=== PATIENT | male | born 1945 | race Caucasian/White ===

== ENCOUNTER → 2017-11-23 10:00 | Outpatient (CLI) | payer MEDICARE, OTHER, SELFPAY ==
--- NOTE | 2017-11-23 17:38 | LEAS ---
Arterial Study - Arterial Study Arterial Study: Bilateral lower extremity noninvasive arterial exam at rest Patient with a history of right lower extremity below-knee amputation The right low thigh index is 1.1. The popliteal Doppler waveform is triphasic. Volume pulse recordings could not be obtained distal to the low thigh. The low thigh waveform normal. Left lower extremity PT and DP ankle-brachial index at rest is 1.18 and 1.13 respectively with a digital index of 0.72. The left PT and DP Doppler waveforms are triphasic. Volume pulse recordings demonstrate normal amplification the calf. The ankle and digital waveforms are adequately maintained. Impression Limited examination of the right lower extremity with intact right iliofemoral inflow. Left lower extremity ankle-brachial indices at rest are normal as are the Doppler waveforms. Digital indices mildly diminished. Findings would suggest mild distal small vessel disease. Critical ischemia is not identified. Oracio Davey M.D., F.A.C.S.
== END ==
PROVIDERS: Family Provider Internal Medicine Infectious Disease; PCP Internal Medicine Infectious Disease; Referring Provider Surgery; Visit Provider Surgery
DX: I73.9 Peripheral vascular disease, unspecified (principal)
CPT/HCPCS: 93923

== ENCOUNTER → 2017-11-29 10:52 | Outpatient (CLI) | payer MEDICARE, OTHER, SELFPAY ==
--- NOTE | 2017-11-29 10:53 | VDLE_ITS ---
Reason For Study: LEG SWELLING RIGHT LEFT CFV is compressible, spontaneous, phasic, GSV is normal. competent and demonstrates normal CFV is compressible, spontaneous, phasic, augmentation. competent, and demonstrates normal Procedure augmentation. Exam performed in department. FV is compressible, spontaneous, phasic, A preliminary report was called and/or faxed competent and demonstrates normal to Dr. Davey. augmentation. POP V is compressible, spontaneous, phasic, competent and demonstrates normal augmentation. T/P Trunk is compressible. PTV is compressible. LT PerV is compressible. Interpretation Summary There is no evidence of left lower extremity deep vein thrombosis. Left greater saphenous vein appears patent and compressible segmentally. Normal flow patterns right common femoral vein. Ordering Physician: Oracio Davey Referring Physician: Oracio Davey Performed By: Ivana Nelson RVT
== END ==
PROVIDERS: Family Provider Internal Medicine Infectious Disease; PCP Internal Medicine Infectious Disease; Referring Provider Surgery; Visit Provider Surgery
DX: M79.89 Other specified soft tissue disorders (principal)
CPT/HCPCS: 93971

== ENCOUNTER 2019-01-31 14:49 | Emergency (ER) | payer MEDICARE, OTHER, SELFPAY ==
[2019-01-31 14:52] VITALS: BP 155/94; PULSE 85; RESP 18; TEMP 36.2; O2SAT 97; BMI 28.2
--- NOTE | 2019-01-31 15:06 | CT_ITS ---
STUDY: CT ABDOMEN AND PELVIS WITH CONTRAST REASON FOR EXAM: Male, 73 years old. Right-sided abdominal pain history of Crohn''s appendectomy cholecystectomy history of ulcer RADIATION DOSAGE (If Supplied By Facility): CTDIvol = ( 14.79 ) mGy, DLP = ( 788.48 ) mGycm TECHNIQUE: Transaxial images were obtained from the dome of the diaphragm to the symphysis pubis without oral contrast. Was administered. Sagittal and coronal images were reconstructed. Individualized dose optimization techniques were used for this CT. COMPARISON: None. FINDINGS: There is minimal lower lobe atelectasis. Sternotomy wires are present midline. The liver is small and fatty infiltrated. The gallbladder is been removed. There is a cystic appearance of the remaining left hepatic lobe with pneumobilia. There is a surgical clip present. Part of the liver may have been resected. There are small cysts within the right hepatic lobe measuring 8.3, 7.2, 4.8 mm. There are multiple cysts demonstrated in the liver. There are surgical clips in the gallbladder fossa consistent with a prior cholecystectomy. Normal spleen. There is diffuse atrophy of the pancreas. Normal bilateral adrenal glands. There is mild atrophy of the right kidney there is renal cortical thinning. There is a left renal cyst measuring 5.5 x 6.2 cm. There are Hounsfield units in the range of simple fluid. There is an exophytic cyst measuring 1.3 cm with Hounsfield units ranging in the level of simple fluid. There is a minimal hiatal hernia. There is a mildly thickened appearance of the distal stomach. Normal small intestine. There is diverticulosis of the colon without visualized diverticulitis. There is non-visualization of the appendix. Aorta is tortuous partially calcified with calcification at the takeoff of the renal arteries. Infrarenal aorta measures approximately 2.8 x 2.8 cm. Normal inferior vena cava. Normal retroperitoneum. There is a inhomogeneous appearance of the prostate which appears to invade or position to the base of the bladder on the left side. There is wall thickening of the bladder. There is a distended appearance of the prostatic urethra and visualized punctate calcifications within the prostate. Normal abdominal wall. There is advanced multilevel degenerative change of the thoracolumbar spine with a pars defect L5-S1 with spondylolysis. There is multilevel disc space narrowing spondylosis, neural foraminal narrowing. There is a sclerotic focus at the superior endplate of L1 which may represent degenerative change versus a small osteoblastic type lesion. There is posttraumatic or procedural irregularity of the left cord to the right iliac crest. CT/Abdomen/Pelvis W IV Cont ONLY IMPRESSION: Masslike and enlargement of the prostate pushing into the base the bladder causing distention of the prostatic urethra and likely causing chronic partial outlet obstruction of the bladder. There is wall thickening probable cystitis. Diverticulosis no evidence of diverticulitis. Findings are suggestive of partial resection of the liver with residual benign-appearing cyst in pneumobilia. Status post cholecystectomy. Mild wall thickening of the distal stomach which may represent gastritis. Small hiatal hernia Bilateral renal atrophy right greater than left. Benign-appearing left renal cyst. Degenerative change thoracolumbar spine. 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 Superior endplate at L1 there is a focal sclerotic density that may represent degenerative change versus a small osteoblastic lesion. Electronically Signed: Dara Patrick MD at 16:48 EST Tel , Service support ,
--- NOTE | 2019-01-31 15:08 | ED.DCSUM_ITS ---
- ER Visit Summary Date of Service: 01/31/19 Chief Complaint: Abdominal pain History of Present Illness: The patient is a 73 M who has abdominal pain. He has had this pain for 3 days. He describes pains on the right side of his abdomen. They do not radiate. Nothing makes it better or worse. He denies n ausea, vomiting, diarrhea, constipation, dysuria or hematuria. He had his last bowel movement yesterday. He is denies a fever. He took tramadol at home without any relief. He has a history of Caroli disease. He has had previous appendectomy and cholecystectomy. Physical Examination: Vital signs reviewed. HEENT exam unremarkable. Heart is regular rate and rhythm without murmurs. Lungs are clear to auscultation. Abdomen is soft with right-sided abdominal tenderness. There is no guarding or rebound tenderness. He has hyperactive bowel sounds. Extremities reveal no edema. Skin exam normal. Neurologic exam normal. Test Results: Laboratory studies normal. Urinalysis normal. CAT scan reveals questionable gastritis and prosthetic enlargement. There is renal atrophy. Nothing acute Emergency Department Course and Treatment: Patient received morphine and Zofran which did not help and he got Bentyl and felt better. I see no acute causes for the patient's pain. He will be discharged with Bentyl. He will follow-up with his PCP. Treatment Plan: [] Disposition: Discharge Impression: Abdominal pain This note was generated with [employer] dictation software. It may contain incorrect words, spelling, and punctuation that were not noted in review of the chart prior to signing ED Disposition - Plan for ED Patient: Referrals: Lance Arcos MD [NON-STAFF] -
[2019-01-31] MEDS: Morphine 4 MG/ML Syringe IV (15:30)
[2019-01-31] MEDS: Ondansetron 4 MG/2 ML Vial IV (15:30)
[2019-01-31 15:59] LABS: Absolute Lymphocyte Count 0.82 X10^3/uL (0.83-4.51); Absolute Neutrophil Count 3.2 X10^3/uL (2.0-7.7); Basophil# 0.02 X10^3/uL; Basophil% 0.4 % (0-1); Eosinophil# 0.11 X10^3/uL; Eosinophils% 2.4 % (0-5); Hemoglobin 14.8 g/dL (13.0-16.5); Lymphocyte # 0.82 X10^3/ul (4.0); Lymphocyte % 17.9 % (19-41); Mean Corp Hgb Conc 32.9 g/dL (32-36); Mean Corpuscular Volume 82.1 fL (80-94); Mean Platelet Vol. 10.1 fl (6.2-12.0); Monocyte# 0.42 X10^3/uL; Monocyte% 9.2 % (0-10); NRBC Flagged by Analyzer 0 % (0-5); Neutrophil # 3.17 X10^3/uL (2.7-7.7); Neutrophil % 69.2 % (47-70); Platelet Count 176 K/mm3 (150-450); RBC Distribution Width CV 13.3 % (11.6-14.6); RBC Distribution Width SD 39.3 fl (35.1-43.9); Red Blood Count 5.48 M/mm3 (4.6-6.2); White Blood Count 4.6 K/mm3 (4.4-11.0)
[2019-01-31 16:17] LABS: AST(SGOT) 19 U/L (15-37); Alanine Aminotransfer ALT/SGPT 24 U/L (16-61); Albumin, Serum 3.7 g/dL (3.2-5.0); Alkaline Phosphatase 85 U/L (45-117); Anion Gap 5 (5-15); BUN 12 mg/dL (7-18); BUN/Creat Ratio 11.4 RATIO (10-20); Bilirubin, Direct 0.15 mg/dL (0.00-0.30); Calcium,Total 8.8 mg/dL (8.5-10.1); Chloride 107 mmol/L (98-107); Creatinine, Serum 1.05 mg/dL (0.70-1.30); EST Glomerular Filtration Rate 73 mL/min (>60); Est Glom Filt Rate - Afr Amer 89 mL/min (>60); Estimated Creatinine Clearance 58.81 ml/min; Globulin 3.4 g/dL (2.2-4.2); Glucose 119 mg/dL (74-106); Lipase 100 U/L (73-393); Potassium 3.5 mmol/L (3.5-5.1); Protein, Total 7.1 g/dL (6.4-8.2); Sodium Level 142 mmol/L (136-145)
[2019-01-31 17:26] VITALS: BP 164/94; PULSE 62; RESP 18; O2SAT 95
[2019-01-31 17:28] LABS: Bacteria 0 SEEN /hpf (None Seen); Mucous, Urine 0 SEEN /hpf (<or=2+); Red Blood Cells-Urine 0 SEEN /hpf (0-5); Squamous Epithelial Cells - UA 0 SEEN /hpf (0-5)
[2019-01-31] MEDS: Dicyclomine 20 MG/2 ML Vial IM (17:48)
[2019-01-31 17:49] LABS: Color, Urine Yellow (Yellow); Glucose, Dipstick Normal (Normal); Ketone-Dipstick Negative (Negative); Leukocyte Esterase-Dipstick Negative /ul (Negative); Nitrite-Dipstick Negative (Negative); Occult Blood-Urine 10 /ul (Negative); Protein-Dipstick Negative (Negative); Urine Bilirubin Dipstick Negative (Negative); Urine Clarity Clear (Clear); Urine Urobilinogen Normal (Normal)
[2019-01-31 18:14] LABS: White Blood Cells 0-5 SEEN /hpf (0-5)
--- NOTE | 2019-01-31 18:58 | ED.DEP ---
ED Disposition - Plan for ED Patient: Disposition: Home or Assisted Living Instructions: ABDOMINAL PAIN, Unkown Cause, (Male) Prescriptions: Dicyclomine HCl [Bentyl] 20 mg PO TIDAC #20 cap Prescription Printed Referrals: Lance Arcos MD [NON-STAFF] -
[2019-01-31 19:06] VITALS: BP 164/94; PULSE 62; RESP 18; O2SAT 95
[2019-01-31 19:09] VITALS: BP 164/94; PULSE 62; RESP 18; O2SAT 95
== END 2019-01-31 19:10 | disposition home or self-care (01) ==
PROVIDERS: Emergency Provider Emergency Medicine; Family Provider Internal Medicine; PCP Internal Medicine
DX: R10.9 Unspecified abdominal pain (principal); N40.0 Benign prostatic hyperplasia without lower urinary tract symptoms; N26.1 Atrophy of kidney (terminal); Z90.49 Acquired absence of other specified parts of digestive tract; I10 Essential (primary) hypertension; E78.00 Pure hypercholesterolemia, unspecified; I48.91 Unspecified atrial fibrillation
CPT/HCPCS: 74177; 80048; 80076; 81001; 83690; 85025; 96372; 96374; 96375; 99283; Q9967; A4216; J2405

== ENCOUNTER → 2019-12-16 | Outpatient (CLI) | payer MEDICARE, OTHER, SELFPAY ==
--- NOTE | 2019-12-16 08:00 | RAD_ITS ---
PROCEDURE: Sniff test. DATE OF EXAMINATION: 12/16/2019. INDICATION: Male, 73 years old. Dyspnea. FLUOROSCOPY TIME (if supplied): (29 seconds) minutes/seconds A sniff test was performed under direct fluoroscopic visualization. Normal diaphragmatic excursion. RAD/Fluoroscopy 1 Hr or Less IMPRESSION: Normal diaphragmatic excursion. Electronically Signed: Jourdan Sandy, at 14:43 EDT , Service support ,
== END | disposition home or self-care (01) ==
LOC: RAD 07:54
PROVIDERS: PCP Internal Medicine; Referring Provider Internal Medicine Pulmonary Disease; Visit Provider Internal Medicine Pulmonary Disease
DX: R06.00 Dyspnea, unspecified (principal)
CPT/HCPCS: 76000

== ENCOUNTER 2020-05-10 13:29 | Emergency (ER) | payer MEDICARE, OTHER, SELFPAY ==
[2020-05-10 13:31] VITALS: BP 131/71; PULSE 51; RESP 18; TEMP 36.7; O2SAT 95; BMI 28.8
--- NOTE | 2020-05-10 14:18 | EKG12_ITS ---
Test Reason : SOB Blood Pressure : / mmHG Vent. Rate : 040 BPM Atrial Rate : 041 BPM P-R Int : 000 ms QRS Dur : 096 ms QT Int : 464 ms P-R-T Axes : 000 016 069 degrees QTc Int : 378 ms Atrial fibrillation with slow ventricular response ST & T wave abnormality, consider anterolateral ischemia Abnormal ECG Confirmed by CAREY ANGELO, BAN ([id number]), art editor WADE CAMPOS ([id number]) on 05/12/2020 10:08:03 AM Referred By: DILCIA Confirmed By:BAN PATINO MD
--- NOTE | 2020-05-10 14:21 | ED.VIS.GEN ---
History of Present Illness Chief Complaint: Shortness of Breath Informant: Patient, Family Narrative: Patient is a 74-year-old male with a past medical history of CAD, CHF, atrial fibrillation who presents to the emergency department for multiple complaints including shortness of breath, diffuse swelling and diarrhea. Initial symptoms started this previous Sunday. He was having diarrhea up until that point and this did resolve. It did start again today but only had one episode. He states 3 days ago he had a darker stool but this also since resolved. No associate abdominal pain. He is on Eliquis for anticoagulation. He denies any chest pain associated with this. No cough. No fevers. He denies any chills. He has not had any nausea vomiting with this. He has been in contact with his PCP who doubled his Lasix on Sunday. Patient is not sure if he has been urinating more frequently due to this. Past Medical History - Allergies and Home Meds Allergies/Adverse Reactions: Allergies gabapentin Allergy (Unknown, Verified 05/10/20 13:31) Unknown meperidine [From Demerol] Adverse Reaction (Intermediate, Verified 05/10/20 13:31) mental status change Suasfcp-Sea-Aha Reductase Inhibitor Adverse Reaction (Intermediate, Verified 05/10/20 13:31) Unknown Penicillins Adverse Reaction (Mild, Verified 05/10/20 13:31) passed out zolpidem [From Ambien] Adverse Reaction (Mild, Verified 05/10/20 13:31) mental status change Primary Care Physician: Angelica Grady MD [Primary Care Provider] - 1 Day Prior records reviewed: Yes Past Medical History: - - Per HPI Surgical History: appendectomy Smoking Status: Former smoker Review of Systems All systems negative except as indicated General: Reports: - - Generalized weakness. Denies: Chills, Fever, Sweats Eyes: Denies: Visual changes - bilaterally, Diplopia ENT: Denies: Rhinorrhea, Sore throat Cardiovascular: Denies: Chest pain, Palpitations Respiratory: Reports: Dyspnea. Denies: Cough, Sputum Gastrointestinal: Reports: Diarrhea. Denies: Abdominal pain, Nausea, Vomiting, Hematochezia Genitourinary: Denies: Dysuria, Hematuria, Frequency Musculoskeletal: Denies: Back pain, Extremity Pain Skin: Reports: Rash - Dry skin on face and upper chest.. Denies: Wounds Neurological: Denies: Headache, Weakness, Numbness Physical Exam Vital Signs/Narrative: Vital Signs Temp Pulse Resp BP Pulse Ox 05/10/20 13:31 98.0 F 51 L 18 131/71 H 95 Inital Vital Signs reviewed: Yes General: Well nourished, Well developed, No Acute Distress Head: Normocephalic, Atraumatic Eyes: Perrl, EOMI ENT: Moist mucous membranes, No rhinorrhea Neck: Supple, Nontender Cardiovascular: Regular rate, Regular rhythm, No murmurs, - - Diffuse edema. Respiratory: No distress, CTA bilaterally, Chest nontender Abdomen: Soft, Nontender, Nondistended, Normal bowel sounds Back: Nontender, Normal Inspection Extremities: Nontender, - - Right AKA. 2+ pitting edema of left lower extremity.. Negative for: Calf Tenderness Skin: Normal color, Rash - Dermatitis on the face and upper chest/neck. Mostly in the creases. It is erythematous with some flaking skin. Neurological: Alert, Cranial nerves II-XII grossly intact, Normal Strength, Normal Sensation Psychological: Normal affect, Normal Mood Diagnostic/Tx/Re-eval Chest X-Ray - ED: 1 View - Single view portable chest x-ray interpreted by myself. No evidence of consolidation. No pleural effusions. Previous sternotomy wires present. No acute pathology noted. Agree with radiologist interpretation. - EKG Initial EKG Interpretation: - - Rate of 40 bpm and an irregularly irregular rhythm. No significant ST elevations or depressions. Otherwise normal intervals/axis. - Medical Decision Making Patient presents to the emerge department for diffuse edema, shortness of breath. He had one episode of diarrhea today. No other infectious symptoms. Upon arrival to the emergency department he is in no acute distress. Vital signs within normal limits. Will check basic lab work, EKG and chest x-ray. Patient's lab work shows him to be very mildly anemic. He has a mildly low white blood cell count as well. His BNP is slightly elevated. Troponin within normal limits. He has been stable throughout ED stay. Patient was able to get up and ambulate around the emergency department without any acute issues. He saturated at 90% without being symptomatic. He has been in atrial fibrillation. He has been bradycardic with this. I did contact his PCP who just saw him in the office for the same complaints 3 days ago. He was supposed to get lab work as an outpatient but the brought him to the emergency department instead. I did inform them of the bradycardia which at times gets into the high 30s. He did recommend that he just do the 12.5 mg of metoprolol once daily instead of twice daily. The patient and his for made aware of this and are agreeable with this plan. They are to monitor his vitals at home and report back to his PCPs office this week. Return precautions were reviewed with him including any worsening shortness of breath or developing any chest pain. I do not feel patient is having ACS, PE, aortic catastrophe at this time. The PCP is aware of the rash on his face which he believes this dermatitis. I do not feel that this is infectious. He is stable for discharge. ED Disposition - Plan for ED Patient: Disposition: Home or Assisted Living Diagnosis: Edema, Dyspnea Instructions: ED Dyspnea, ED Peripheral Edema, Bilateral Referrals: Angelica Grady MD [Primary Care Provider] - 1 Day
[2020-05-10 14:43] VITALS: BP 123/72; PULSE 47; RESP 14; TEMP 36.7; O2SAT 92
--- NOTE | 2020-05-10 14:55 | RAD_ITS ---
STUDY: X-RAY CHEST REASON FOR EXAM: Male, 74 years old. SOB TECHNIQUE: Single AP portable view of the chest. COMPARISON: None. FINDINGS: EKG electrodes are seen. Mild increased markings at the left lung base suggestive of linear atelectasis and/or scarring. There is no demonstrated pleural abnormality. Sternal cerclage wires and vascular clips are present from a prior sternotomy and coronary artery bypass graft procedure (CABG). Normal mediastinum and eber. Normal visualized pulmonary arteries. There is atherosclerotic tortuosity of the aortic arch and descending thoracic aorta. Normal visualized thoracic spine. Normal visualized ribs, clavicles, and shoulders. There is no demonstrated abnormality of the visualized soft tissue structures of the upper abdomen. RAD/Chest 1 View (Portable) IMPRESSION: Status post CABG. Mild degree of increased linear markings at the left lung base suggestive of linear atelectasis and/or scarring. Electronically Signed: Jourdan Sandy MD at 15:19 EDT , Service support ,
[2020-05-10 15:07] LABS: Absolute Lymphocyte Count 0.77 X10^3/uL (0.83-4.51); Absolute Neutrophil Count 2.7 X10^3/uL (2.0-7.7); Basophil# 0.02 X10^3/uL; Basophil% 0.5 % (0-1); Eosinophil# 0.17 X10^3/uL; Eosinophils% 4.2 % (0-5); Hematocrit 40.7 % (40-54); Hemoglobin 12.2 g/dL (13.0-16.5); Lymphocyte # 0.77 X10^3/ul (4.0); Lymphocyte % 18.8 % (19-41); Mean Corpuscular Hgb 25.6 pg (27.0-32.0); Mean Corpuscular Volume 85.5 fL (80-94); Mean Platelet Vol. 11.5 fl (6.2-12.0); Monocyte% 9.8 % (0-10); NRBC Flagged by Analyzer 0 % (0-5); Neutrophil # 2.71 X10^3/uL (2.7-7.7); Neutrophil % 66.2 % (47-70); Platelet Count 169 K/mm3 (150-450); RBC Distribution Width CV 13.3 % (11.6-14.6); RBC Distribution Width SD 41.7 fl (35.1-43.9); Red Blood Count 4.76 M/mm3 (4.6-6.2); White Blood Count 4.1 K/mm3 (4.4-11.0)
[2020-05-10 15:33] LABS: ALB/GLOB Ratio 1.2 RATIO (0.9-2.4); AST(SGOT) 24 U/L (15-37); Alanine Aminotransfer ALT/SGPT 19 U/L (16-61); Albumin, Serum 3.7 g/dL (3.2-5.0); Alkaline Phosphatase 49 U/L (45-117); Anion Gap 2 (5-15); BUN 16 mg/dL (7-18); Calcium,Total 8.6 mg/dL (8.5-10.1); Chloride 109 mmol/L (98-107); Creatinine, Serum 1.14 mg/dL (0.70-1.30); EST Glomerular Filtration Rate 66 mL/min (>60); Est Glom Filt Rate - Afr Amer 80 mL/min (>60); Estimated Creatinine Clearance 53.33 ml/min; Glucose 81 mg/dL (74-106); Magnesium 2.1 mg/dL (1.6-2.6); Potassium 3.7 mmol/L (3.5-5.1); Protein, Total 6.7 g/dL (6.4-8.2); Sodium Level 143 mmol/L (136-145); Thyroid Stim Hormone (TSH) 2.34 uIU/mL (0.358-3.74)
[2020-05-10 16:00] VITALS: BP 135/96; PULSE 42; RESP 12; TEMP 36.4; O2SAT 98
[2020-05-10 16:07] VITALS: O2SAT 94
[2020-05-10 16:07] LABS: Bacteria 0 SEEN /hpf (None Seen); Mucous, Urine 0 SEEN /hpf (<or=2+); Red Blood Cells-Urine 0 SEEN /hpf (0-5); Squamous Epithelial Cells - UA 0 SEEN /hpf (0-5); White Blood Cells 0 SEEN /hpf (0-5)
[2020-05-10 16:16] LABS: Color, Urine Yellow (Yellow); Glucose, Dipstick Normal (Normal); Ketone-Dipstick Negative (Negative); Leukocyte Esterase-Dipstick 25 /ul (Negative); Nitrite-Dipstick Negative (Negative); Occult Blood-Urine Negative /ul (Negative); Protein-Dipstick Negative (Negative); Specific Gravity, Urine 1.015 (1.002-1.030); Urine Bilirubin Dipstick Negative (Negative); Urine Clarity Clear (Clear); Urine Urobilinogen Normal (Normal)
[2020-05-10 17:43] VITALS: BP 131/83; PULSE 46; RESP 18; O2SAT 94
== END 2020-05-10 17:57 | disposition home or self-care (01) ==
PROVIDERS: Emergency Provider Emergency Medicine; PCP Internal Medicine
DX: R60.9 Edema, unspecified (principal); R06.00 Dyspnea, unspecified; R19.7 Diarrhea, unspecified; I25.10 Atherosclerotic heart disease of native coronary artery without angina pectoris; I48.91 Unspecified atrial fibrillation; Z79.01 Long term (current) use of anticoagulants; Z87.891 Personal history of nicotine dependence; Z88.0 Allergy status to penicillin; Z88.5 Allergy status to narcotic agent; Z88.8 Allergy status to other drugs, medicaments and biological substances; Z95.1 Presence of aortocoronary bypass graft
CPT/HCPCS: 71045; 80053; 81001; 83735; 83880; 84443; 84484; 85025; 87426; 93005; 99284; A4216

== ENCOUNTER → 2021-07-26 | Outpatient (CLI) | payer MEDICARE, OTHER, SELFPAY | END | disposition home or self-care (01) | PROVIDERS: PCP Internal Medicine | DX: B99.9 Unspecified infectious disease (principal) | CPT/HCPCS: 87086 ==

== ENCOUNTER → 2021-08-01 | Outpatient (CLI) | payer MEDICARE, OTHER, SELFPAY ==
--- NOTE | 2021-08-01 12:25 | MRI_ITS ---
STUDY: MRI ABDOMEN WITH AND WITHOUT CONTRAST REASON FOR EXAM: Male, 75 years old. RENAL CYST NAUSEA,VOMITING, ABD ABCESS/INFECTION TECHNIQUE: Standardized fat and water weighted pulse sequences were obtained in all 3 orthogonal planes post contrast administration. dotarem 20ml iv was administered for the contrast portion of the examination. COMPARISON: CT 01/31/2019 FINDINGS: The visualized lung bases are unremarkable. The visualized portions of the heart are within normal limits. Multiple small hepatic cysts. The entire liver is not included on the study. There are surgical clips in the gallbladder fossa consistent with a prior cholecystectomy. Normal spleen. The entire spleen is not included on the study. Normal pancreas. Normal bilateral adrenal glands. Multiple bilateral renal cysts. Most of these are small in size. No change in the 6 cm round exophytic simple cyst of the midsection of left kidney without septation, nodularity, or contrast enhancement (Bosniak type I). Normal visualized stomach. Normal small intestine. Normal colon. The appendix is visualized and appears normal. Normal abdominal aorta. Normal inferior vena cava. Normal retroperitoneum. Normal abdominal wall. Normal osseous structures. MRI/MRI Abd WITH and W/O Contrast IMPRESSION: Multiple bilateral renal cysts including a 6 cm cyst in the midsection left kidney. Electronically Signed: Satinder Morin MD at 9:50 EDT ,
[2021-08-01 12:50] LABS: CREATININE FINGERSTICK < 0.9 mg/dL (0.70-1.30); EGFR FINGERSTICK > 60.0000 mL/min (>60)
[2021-08-01 13:03] VITALS: BP 124/82; PULSE 136; RESP 16; O2SAT 94
[2021-08-01 13:17] VITALS: BP 109/73; PULSE 85; O2SAT 97
[2021-08-01 13:28] VITALS: BP 108/81; PULSE 85; O2SAT 92
== END | disposition home or self-care (01) ==
PROVIDERS: PCP Internal Medicine; Referring Provider Internal Medicine; Visit Provider Internal Medicine
DX: N28.1 Cyst of kidney, acquired (principal); R10.9 Unspecified abdominal pain; R11.0 Nausea
CPT/HCPCS: 74183; A9575

== ENCOUNTER → 2021-08-18 | Outpatient (CLI) | payer MEDICARE, OTHER, SELFPAY ==
[2021-08-18 08:32] LABS: Absolute Lymphocyte Count 1.05 X10^3/uL (0.83-4.51); Basophil# 0.04 X10^3/uL; Basophil% 0.7 % (0-1); Eosinophil# 0.19 X10^3/uL; Eosinophils% 3.2 % (0-5); Hematocrit 43.3 % (40-54); Hemoglobin 13.9 g/dL (13.0-16.5); Lymphocyte # 1.05 X10^3/ul (0.83-4.51); Lymphocyte % 17.9 % (19-41); Mean Corp Hgb Conc 32.1 g/dL (32-36); Mean Corpuscular Hgb 28.1 pg (27.0-32.0); Mean Corpuscular Volume 87.5 fL (80-94); Mean Platelet Vol. 10.2 fl (6.2-12.0); Monocyte# 0.54 X10^3/uL; Monocyte% 9.2 % (0-10); NRBC Flagged by Analyzer 0 % (0-5); Neutrophil # 4.02 X10^3/uL (2.7-7.7); Neutrophil % 68.5 % (47-70); Platelet Count 209 K/mm3 (150-450); RBC Distribution Width CV 12.4 % (11.6-14.6); RBC Distribution Width SD 39.5 fl (35.1-43.9); Red Blood Count 4.95 M/mm3 (4.6-6.2); White Blood Count 5.9 K/mm3 (4.4-11.0)
[2021-08-18 08:47] LABS: Color, Urine Straw (Yellow); Glucose, Dipstick Normal (Normal); Ketone-Dipstick Negative (Negative); Leukocyte Esterase-Dipstick Negative /ul (Negative); Nitrite-Dipstick Negative (Negative); Occult Blood-Urine Negative /ul (Negative); Protein-Dipstick Negative (Negative); Urine Bilirubin Dipstick Negative (Negative); Urine Clarity Cloudy (Clear); Urine Urobilinogen Normal (Normal)
[2021-08-18 08:59] LABS: ALB/GLOB Ratio 1.3 RATIO (0.9-2.4); AST(SGOT) 15 U/L (15-37); Alanine Aminotransfer ALT/SGPT 16 U/L (16-61); Albumin, Serum 3.8 g/dL (3.2-5.0); Alkaline Phosphatase 38 U/L (45-117); Anion Gap 1 (5-15); BUN 18 mg/dL (7-18); BUN/Creat Ratio 14.8 RATIO (10-20); Calcium,Total 8.7 mg/dL (8.5-10.1); Chloride 105 mmol/L (98-107); Cholesterol 121 mg/dL (200); Creatinine, Serum 1.22 mg/dL (0.70-1.30); EST Glomerular Filtration Rate 61 mL/min (>60); Est Glom Filt Rate - Afr Amer 74 mL/min (>60); Glucose 88 mg/dL (74-106); High Density Lipoprotein 33 mg/dL; Protein, Total 6.8 g/dL (6.4-8.2); Sodium Level 140 mmol/L (136-145); Triglycerides 128 mg/dL; Very Low Density Lipoprotein 26 mg/dL (5-40)
== END | disposition home or self-care (01) ==
PROVIDERS: PCP Internal Medicine
DX: N39.0 Urinary tract infection, site not specified (principal); Z95.0 Presence of cardiac pacemaker; B99.9 Unspecified infectious disease
CPT/HCPCS: 36415; 80053; 80061; 81002; 85025; 87086

== ENCOUNTER 2021-10-25 12:54 | Emergency (ER) | payer MEDICARE, OTHER, SELFPAY ==
[2021-10-25 12:56] VITALS: BP 140/95; PULSE 86; RESP 18; TEMP 36.8; O2SAT 92; BMI 27.2
[2021-10-25 13:26] VITALS: TEMP 37.1
--- NOTE | 2021-10-25 14:08 | EKG12_ITS ---
Test Reason : fever Blood Pressure : / mmHG Vent. Rate : 061 BPM Atrial Rate : 060 BPM P-R Int : 000 ms QRS Dur : 146 ms QT Int : 500 ms P-R-T Axes : 000 -29 113 degrees QTc Int : 503 ms Ventricular-paced rhythm with occasional Premature ventricular complexes Abnormal ECG Confirmed by ISA ANGELO, DEREK ([id number]), commissioning editor WADE CAMPOS ([id number]) on 10/28/2021 2:00:59 PM Referred By: Catalina Confirmed By:MATTHEW MOSS MD
--- NOTE | 2021-10-25 14:09 | EX.ED.DYSGE1 ---
HPI History of Present Illness Chief Complaint: Fever Informant: patient Onset/Context/Timing Onset: Days Context: Gradual Onset Current Severity: Mild Maximum Severity: Mild Narrative Narrative: Patient presents feeling ill for the past 3 days. He reports temperature up to 99.7. He had some mild right upper quadrant pain which he states he gets intermittently. He was post to see GI in [place] yesterday but did not feel well enough to go. Today he started with nausea and vomiting and this prompted his visit to the emergency room. [facility] Medical History Anxiety and depression Atrial fibrillation Chronic back pain Congestive heart failure GERD (gastroesophageal reflux disease) Heart disease Hemorrhoid HTN (hypertension) Osteoarthritis Pancreatitis Sleep apnea Venous (peripheral) insufficiency Home Medications amlodipine 10 mg tablet 10 mg PO DAILY 11/29/17 [History Last Taken Unknown] apixaban 5 mg tablet (Eliquis) 5 mg PO BID 11/29/17 [History Last Taken Unknown] aspirin 81 mg tablet,delayed release (Adult Aspirin Regimen) 81 mg PO DAILY 11/29/17 [History Last Taken Unknown] cholecalciferol (vitamin D3) 50 mcg (2,000 unit) capsule 2,000 unit PO DAILY 11/29/17 [History Last Taken Unknown] clonazepam 1 mg tablet 1 mg PO BID 11/29/17 [History Last Taken Unknown] colesevelam 625 mg tablet (WelChol) 1,875 mg PO TID 11/29/17 [History Last Taken Unknown] furosemide 40 mg tablet 40 mg PO DAILY 11/29/17 [History Last Taken Unknown] lansoprazole 30 mg capsule,delayed release 30 mg PO BID 11/29/17 [History Last Taken Unknown] lisinopril 20 mg tablet 20 mg PO BID 11/29/17 [History Last Taken Unknown] magnesium oxide 400 mg (241.3 mg magnesium) tablet 500 mg PO BID 11/29/17 [History Last Taken Unknown] metoprolol succinate 25 mg tablet,extended release 24 hr 25 mg PO DAILY 11/29/17 [History Last Taken Unknown] nitroglycerin 0.4 mg sublingual tablet (Nitrostat) 0.4 mg sublingual Q5-15M PRN 11/29/17 [History Last Taken Unknown] potassium chloride 10 mEq tablet,extended release 20 meq PO DAILY 11/29/17 [History Last Taken Unknown] pregabalin 200 mg capsule (Lyrica) 150 mg PO BID 11/29/17 [History Last Taken Unknown] tramadol 50 mg tablet 50 mg PO Q6H 11/29/17 [History Last Taken Unknown] trazodone 50 mg tablet 50 mg PO BID 11/29/17 [History Last Taken Unknown] dicyclomine 10 mg capsule 20 mg PO TIDAC #20 caps 01/31/19 [Rx Last Taken Unknown] donepezil 10 mg tablet 10 mg PO DAILY 10/25/21 [History Last Taken Unknown] famotidine 20 mg tablet 20 mg PO BID 10/25/21 [History Last Taken Unknown] hydromorphone 2 mg tablet mg 10/25/21 [History Last Taken Unknown] promethazine 25 mg tablet 25 mg PO TID PRN nausea and vomiting #14 tabs 10/25/21 [Rx Last Taken Unknown] Allergy/AdvReac Type Severity Reaction Status Date / Time gabapentin Allergy Unknown Unknown Verified 10/25/21 12:55 meperidine [From Demerol] AdvReac Intermediate mental Verified 10/25/21 12:55 status change [id number]-JSE-WvH Reductase AdvReac Intermediate Unknown Verified 10/25/21 12:55 Inhibitor [Qcnrnvq-Vrx-Ybv Reductase Inhibitor] Penicillins AdvReac Mild passed out Verified 10/25/21 12:55 zolpidem [From Ambien] AdvReac Mild mental Verified 10/25/21 12:55 status change topiramate AdvReac Other Verified 10/25/21 12:55 Family History Sister Diabetes Asthma Thyroid disorder Mother CVA (cerebral vascular accident) Brother CVA (cerebral vascular accident) Hypertension Heart disease Surgical History History of appendectomy History of back surgery History of cataract surgery History of cholecystectomy History of elbow surgery History of ERCP History of heart bypass surgery History of hernia repair History of hip replacement, total History of prostatectomy History of right below knee amputation Social History Smoking Status: Former smoker ROS ROS ED Constitutional Constitutional ED: Denies chills or fever(s) Eyes Eyes: Denies change in vision or discharge from eye(s) ENT ENT ED: Denies discharge from eye(s), rhinorrhea or sore throat Cardiovascular Cardiovascular: Denies chest pain or palpitations Respiratory/Chest Respiratory/Chest: Denies cough or dyspnea Gastrointestinal Gastrointestinal: Denies abdominal pain, diarrhea, nausea or vomiting Genitourinary Genitourinary ED: Denies difficulty urinating or dysuria Musculoskeletal Musculoskeletal: Denies back pain or extremity pain Integumentary Denies Abrasions or rash Neurologic Neurologic: Denies headache(s) or weakness Psychiatric Psychiatric: Denies anxiety or depression Allergic/Immunologic Allergic/Immunologic ED: Denies lip swelling or urticaria EXAM Physical Exam Const Vital Signs: 10/25/21 12:56 10/25/21 13:26 10/25/21 13:27 Temperature 98.3 F 98.7 F Temperature Source Temporal Oral Pulse Rate 86 Respiratory Rate 18 Respiratory Effort Normal Non-Labored Respiratory Pattern Normal Blood Pressure 140/95 H Blood Pressure Mean 110 Pulse Ox 92 Oxygen Delivery Method Room Air 10/25/21 15:40 10/25/21 17:07 Temperature Temperature Source Pulse Rate 63 64 Respiratory Rate 13 11 L Respiratory Effort Respiratory Pattern Blood Pressure 117/49 L 144/82 H Blood Pressure Mean 71 102 Pulse Ox 95 Oxygen Delivery Method Room Air Positive well nourished and well developed General Appearance ED: well developed HEENT Reports moist mucous membranes Eyes EOMs intact bilaterally Neck no lymphadenopathy Chest Wall inspection of chest normal and palpation of chest normal Resp normal respiratory effort and clear to auscultation bilaterally Cardio regular rate and regular rhythm GI GI Narrative: Abdomen soft with right upper quadrant tenderness to palpation. No guarding or rebound. Hypoactive bowel sounds are present. Neuro oriented x3 and CN's II-XII intact bilaterally Skin no rashes or lesions noted MDM MDM MDM Narrative Medical decision making narrative: Patient given IV fluids and Phenergan for nausea. EKG obtained. Chest x-ray, lab work, urinalysis, right upper quadrant ultrasound ordered. Swabs for COVID and influenza obtained. Lab Data Attestation: I reviewed the patient's lab results. Labs: Laboratory Results - last 24 hr 10/25/21 10/25/21 10/25/21 14:17 14:17 15:51 WBC 7.5 RBC 5.46 Hgb 15.3 Hct 45.6 MCV 83.5 MCH 28.0 MCHC 33.6 RDW Std Deviation 38.0 RDW Coeff of Esthela 12.7 Plt Count 239 MPV 9.9 Immature Gran % (Auto) 0.500 Neut % (Auto) 81.0 H Lymph % (Auto) 11.9 L [place] % (Auto) 6.2 Eos % (Auto) 0.1 Baso % (Auto) 0.3 Absolute Neuts (auto) 6.0 Absolute Lymphs (auto) 0.89 Nucleated RBC % 0 Sodium 141 Potassium 3.4 L Chloride 105 Carbon Dioxide 31.0 Anion Gap 5 BUN 21 H Creatinine 1.30 Estim Creat Clear Calc 46.04 Est GFR (MDRD) Af Amer 69 Est GFR (MDRD) Non-Af 57 L BUN/Creatinine Ratio 16.2 Glucose 130 H Calcium 9.4 Total Bilirubin 0.50 Direct Bilirubin 0.18 AST 23 ALT 20 Alkaline Phosphatase 42 L Total Protein 7.4 Albumin 4.0 Globulin 3.4 Lipase 150 Urine Color Yellow Urine Clarity Clear Urine pH 6.0 Ur Specific [place] 1.025 Urine Protein 30 H Urine Glucose (UA) Normal Urine Ketones 5 H Urine Occult Blood 10 H Urine Nitrite Negative Urine Bilirubin Negative Urine Urobilinogen Normal Ur Leukocyte Esterase Negative Urine RBC 0-5 SEEN Urine WBC 0-5 SEEN Ur Squamous Epith Cells 0-5 SEEN Urine Bacteria 2+ Hyaline Casts 5-10 SEEN Urine Mucus 3+ Radiography Chest X-Ray - ED: 1 View, Read by ED Physician and Chronic Changes Diagnostic Testing: Clinical Impression(s) from Imaging Studies Chest X-Ray 10/25/21 14:26 IMPRESSION: Stable mild increase in markings at the left lung base suggestive of scarring. Electronically Signed: Jourdan Sandy MD at 14:41 EDT , Abdomen Ultrasound 10/25/21 15:12 IMPRESSION: Heterogeneous liver can suggest hepatocellular disease. Note: Renal size measurements and size measurements of other organs etc may vary depending on modality and machine operator picker dependent variations in measurements. (i.e. Measuring a kidney on an US does not correlate with an exact same measurement on a CT.) Electronically Signed: Osito Barrios MD at 16:58 EDT , EKG Initial EKG: Attestation: I personally reviewed and interpreted this EKG as follows: Comments: Paced at 61. No significant ischemia. QTC is 503. Treatment and Re-Evaluation Narrative: CBC reveals normal white count with slight left shift of 81% neutrophils. Chemistry studies reveal potassium of 3.4. BUN is 21, slightly elevated from prior. Creatinine is 1.3, consistent with his prior values. LFTs and lipase normal. Urinalysis reveals 2+ bacteria with 0-5 white cells. 5-10 hyaline casts are noted with 0-5 white cells and no nitrites. COVID and influenza swabs are negative. Chest x-ray per my interpretation shows chronic changes with no focal infiltrate. Radiology interpretation is reviewed and agrees. Right upper quadrant ultrasound reveals normal hepatic ducts. No acute findings appreciated. Repeat evaluation patient was having some recurrent nausea and was requesting his normal Dilaudid that he takes at home for pain. He was given Dilaudid, Reglan, Benadryl. At this time patient's symptoms are improved. Test results are discussed with patient as well as at bedside. I advised that he likely has another viral illness with an unremarkable work-up at this time. He is given return instructions and we discussed supportive care. Discharge Plan Triage Chief Complaint: Fever ED Provider: Jeannette Arnold Dx/Rx/DC Orders Clinical Impression: Febrile illness, Vomiting Prescriptions: New promethazine 25 mg tablet 25 mg PO TID PRN (Reason: nausea and vomiting) Qty: 14 0RF No Action aspirin [Adult Aspirin Regimen] 81 mg tablet,delayed release (DR/EC) 81 mg PO DAILY potassium chloride 10 mEq tablet extended release 20 meq PO DAILY Eliquis 5 mg tablet 5 mg PO BID Lyrica 200 mg capsule 150 mg PO BID nitroglycerin [Nitrostat] 0.4 mg tablet, sublingual 0.4 mg SUBLINGUAL Q5-15M PRN lisinopril 20 mg tablet 20 mg PO BID lansoprazole 30 mg capsule,delayed release(DR/EC) 30 mg PO BID colesevelam [WelChol] 625 mg tablet 1,875 mg PO TID metoprolol succinate 25 mg tablet extended release 24 hr 25 mg PO DAILY clonazepam 1 mg tablet 1 mg PO BID tramadol 50 mg tablet 50 mg PO Q6H amlodipine 10 mg tablet 10 mg PO DAILY furosemide 40 mg tablet 40 mg PO DAILY magnesium oxide 400 mg tablet 500 mg PO BID trazodone 50 mg tablet 50 mg PO BID cholecalciferol (vitamin D3) 2,000 unit capsule 2,000 unit PO DAILY dicyclomine 10 MG capsule 20 mg PO TIDAC Qty: 20 0RF hydromorphone 2 mg tablet Label Comments: TAKE 1 TABLET BY MOUTH TWICE DAILY NEEDED BREAKTHROUGH PAIN donepezil 10 mg tablet 10 mg PO DAILY famotidine 20 mg Tablet 20 mg PO BID Primary Care Provider: Angelica Grady Referrals: Angelica Grady MD [Primary Care Provider] - 3-5 Days if not improving Disposition Disposition: Home, Self Care
[2021-10-25] MEDS: proMETHazine 25 MG/ML Syringe 12.5 MG IM (14:23)
[2021-10-25] MEDS: 0.9% Normal Saline 1,000 ML 150 ML IV (14:23)
[2021-10-25 14:24] LABS: Absolute Lymphocyte Count 0.89 X10^3/uL (0.83-4.51); Basophil# 0.02 X10^3/uL; Basophil% 0.3 % (0-1); Eosinophil# 0.01 X10^3/uL; Eosinophils% 0.1 % (0-5); Hematocrit 45.6 % (40-54); Hemoglobin 15.3 g/dL (13.0-16.5); Lymphocyte # 0.89 X10^3/ul (0.83-4.51); Lymphocyte % 11.9 % (19-41); Mean Corp Hgb Conc 33.6 g/dL (32-36); Mean Corpuscular Volume 83.5 fL (80-94); Mean Platelet Vol. 9.9 fl (6.2-12.0); Monocyte# 0.46 X10^3/uL; Monocyte% 6.2 % (0-10); NRBC Flagged by Analyzer 0 % (0-5); Neutrophil # 6.03 X10^3/uL (2.7-7.7); Platelet Count 239 K/mm3 (150-450); RBC Distribution Width CV 12.7 % (11.6-14.6); Red Blood Count 5.46 M/mm3 (4.6-6.2); White Blood Count 7.5 K/mm3 (4.4-11.0)
--- NOTE | 2021-10-25 14:26 | RAD_ITS ---
STUDY: X-RAY CHEST REASON FOR EXAM: Male, 75 years old. Fever TECHNIQUE: Single AP portable view of the chest. COMPARISON: Comparison is made with prior study dated 05/10/2020. FINDINGS: EKG electrodes are seen. Stable mild elevation of the right hemidiaphragm. Stable mild increased linear markings at the left lung base suggestive of scarring. There is no demonstrated pleural abnormality. Sternal cerclage wires and vascular clips are present from a prior sternotomy and coronary artery bypass graft procedure (CABG). A left-sided unipolar pacemaker is seen. Normal mediastinum and eber. Normal visualized pulmonary arteries. There is atherosclerotic tortuosity of the aortic arch and descending thoracic aorta. There are diffuse degenerative changes of the visualized thoracic spine. Normal visualized ribs, clavicles, and shoulders. There is no demonstrated abnormality of the visualized soft tissue structures of the upper abdomen. RAD/Chest 1 View (Portable) IMPRESSION: Stable mild increase in markings at the left lung base suggestive of scarring. Electronically Signed: Jourdan Sandy MD at 14:41 EDT ,
[2021-10-25 15:03] LABS: AST(SGOT) 23 U/L (15-37); Alanine Aminotransfer ALT/SGPT 20 U/L (16-61); Alkaline Phosphatase 42 U/L (45-117); Anion Gap 5 (5-15); BUN 21 mg/dL (7-18); BUN/Creat Ratio 16.2 RATIO (10-20); Bilirubin, Direct 0.18 mg/dL (0.00-0.30); Calcium,Total 9.4 mg/dL (8.5-10.1); Chloride 105 mmol/L (98-107); EST Glomerular Filtration Rate 57 mL/min (>60); Est Glom Filt Rate - Afr Amer 69 mL/min (>60); Estimated Creatinine Clearance 46.04 ml/min; Globulin 3.4 g/dL (2.2-4.2); Glucose 130 mg/dL (74-106); Lipase 150 U/L (73-393); Potassium 3.4 mmol/L (3.5-5.1); Protein, Total 7.4 g/dL (6.4-8.2); Sodium Level 141 mmol/L (136-145)
--- NOTE | 2021-10-25 15:12 | US_ITS ---
STUDY: ABDOMINAL ULTRASOUND - RIGHT UPPER QUADRANT REASON FOR VISIT: Male, 75 years old. ABDOMEN PAIN RUQ pain TECHNIQUE: Ultrasound evaluation of the right upper quadrant was performed with real-time and static jones-scale imaging. TECHNICAL QUALITY: Adequate. COMPARISON: None. FINDINGS: Liver: There is a heterogeneous echogenicity of the liver. The bile ducts are within normal limits. There is hepatic color flow. The direction of portal flow is hepatopetal. There is no demonstrated mass lesion. Gallbladder: The patient is status post cholecystectomy. Common Bile Duct (C.B.D.): The common bile duct measures ( in mm): 6 Pancreas: It is not visualized. There is too much overlying bowel gas. Right Kidney: Normal size of the right kidney. The right kidney measures 10.8 cm. . There is cortical scarring with thinning and irregularity of the cortex. There is no demonstrated renal mass or cyst. There is no right hydronephrosis. Aorta: It is not visualized. There is too much overlying bowel gas. . US/Abdomen Limited IMPRESSION: Heterogeneous liver can suggest hepatocellular disease. Note: Renal size measurements and size measurements of other organs etc may vary depending on modality and packaging operator dependent variations in measurements. (i.e. Measuring a kidney on an US does not correlate with an exact same measurement on a CT.) Electronically Signed: Osito Barrios MD at 16:58 EDT ,
[2021-10-25 15:40] VITALS: BP 117/49; PULSE 63; RESP 13; O2SAT 95
[2021-10-25 16:02] LABS: Color, Urine Yellow (Yellow); Glucose, Dipstick Normal (Normal); Ketone-Dipstick 5 mg/dl (Negative); Leukocyte Esterase-Dipstick Negative /ul (Negative); Nitrite-Dipstick Negative (Negative); Occult Blood-Urine 10 /ul (Negative); Protein-Dipstick 30 mg/dl (Negative); Specific Gravity, Urine 1.025 (1.002-1.030); Urine Bilirubin Dipstick Negative (Negative); Urine Clarity Clear (Clear); Urine Urobilinogen Normal (Normal)
[2021-10-25 16:17] LABS: Red Blood Cells-Urine 0-5 SEEN /hpf (0-5)
[2021-10-25 16:18] LABS: Bacteria 2+ /hpf (None Seen); Mucous, Urine 3+ /hpf (<or=2+); Squamous Epithelial Cells - UA 0-5 SEEN /hpf (0-5); White Blood Cells 0-5 SEEN /hpf (0-5)
[2021-10-25 16:19] LABS: Hyaline Cast 5-10 SEEN /lpf (0-5)
[2021-10-25] MEDS: HYDROmorphone 0.5 MG/0.5 ML SYRINGE IV (17:05)
[2021-10-25] MEDS: DiphenhydrAMINE 50 MG/ML Syringe 12.5 MG IV (17:05)
[2021-10-25] MEDS: Metoclopramide 10 MG/2 ML Vial 5 MG IV (17:05)
[2021-10-25 17:07] VITALS: BP 144/82; PULSE 64; RESP 11
[2021-10-25 18:01] VITALS: BP 130/86; PULSE 60; RESP 14; O2SAT 95
== END 2021-10-25 18:04 | disposition home or self-care (01) ==
PROVIDERS: Emergency Provider Emergency Medicine; PCP Internal Medicine; Visit Provider Emergency Medicine
DX: R11.2 Nausea with vomiting, unspecified (principal); R50.9 Fever, unspecified; M54.9 Dorsalgia, unspecified; Z87.891 Personal history of nicotine dependence; R10.11 Right upper quadrant pain; I10 Essential (primary) hypertension; F41.9 Anxiety disorder, unspecified; F32.A Depression, unspecified
CPT/HCPCS: 71045; 76705; 80048; 80076; 81001; 83690; 85025; 87428; 93005; 96361; 96372; 96374; 96375; 99284; J7030; A4216

== ENCOUNTER 2021-11-02 07:55 | Inpatient (IN) | payer MEDICARE, OTHER, SELFPAY ==
[2021-11-02 07:55] VITALS: BP 122/78; PULSE 68; RESP 16; TEMP 36.3; O2SAT 93; BMI 27.3
[2021-11-02] MEDS: diazePAM 5 MG Tablet PO (08:39)
[2021-11-02] MEDS: HYDROmorphone 1 MG/ML Syringe IV ×2 (08:39→09:51)
--- NOTE | 2021-11-02 09:49 | ED.VIS.BACK ---
HPI History of Present Illness Chief Complaint: Back Informant: patient Narrative Narrative: Patient is a 75-year-old male with history of traumatic amputation of the right lower extremity below the knee, chronic back pain and on chronic pain medication including Dilaudid as needed as well as high-dose hydrocodone presenting with worsening back pain. Patient states the pain is in his lower back in the midline. He states this is where his chronic back pain is. He does have some tingling going down his left leg which is chronic for him. He denies any bowel or bladder symptoms. He saw his pain management doctor yesterday, Dr. Santana who prescribed him prednisone. He is not taking the first dose yet. States the pain is burning in his back. He notes last week he had some illness where he was vomiting and that seemed to have triggered his back pain. He had been having a low-grade fever and was seen in the ER couple days ago. He notes his fevers have resolved. Denies any abdominal pain. Denies any saddle anesthesia. No other complaints at this time. [facility] Medical History Anxiety and depression Atrial fibrillation Chronic back pain Congestive heart failure GERD (gastroesophageal reflux disease) Heart disease Hemorrhoid HTN (hypertension) Osteoarthritis Pancreatitis Sleep apnea Venous (peripheral) insufficiency Home Medications amlodipine 10 mg tablet 5 mg PO DAILY 11/29/17 [History Last Taken Unknown] apixaban 5 mg tablet (Eliquis) 5 mg PO BID 11/29/17 [History Last Taken Unknown] aspirin 81 mg tablet,delayed release (Adult Aspirin Regimen) 81 mg PO DAILY 11/29/17 [History Last Taken Unknown] cholecalciferol (vitamin D3) 50 mcg (2,000 unit) capsule 2,500 unit PO DAILY 11/29/17 [History Last Taken Unknown] colesevelam 625 mg tablet (WelChol) 1,875 mg PO TID 11/29/17 [History Last Taken Unknown] furosemide 40 mg tablet 40 mg PO DAILY 11/29/17 [History Last Taken Unknown] magnesium oxide 400 mg (241.3 mg magnesium) tablet 500 mg PO BID 11/29/17 [History Last Taken Unknown] metoprolol succinate 25 mg tablet,extended release 24 hr 25 mg PO DAILY 11/29/17 [History Last Taken Unknown] nitroglycerin 0.4 mg sublingual tablet (Nitrostat) 0.4 mg sublingual Q5-15M PRN Chest Pain 11/29/17 [History Last Taken Unknown] potassium chloride 10 mEq tablet,extended release 20 meq PO DAILY 11/29/17 [History Last Taken Unknown] donepezil 10 mg tablet 10 mg PO DAILY 10/25/21 [History Last Taken Unknown] famotidine 20 mg tablet 20 mg PO BID 10/25/21 [History Last Taken Unknown] hydromorphone 2 mg tablet 2 mg PO Q6H PRN PRN Pain 10/25/21 [History Last Taken Unknown] promethazine 25 mg tablet 25 mg PO TID PRN nausea and vomiting #14 tabs 10/25/21 [Rx Last Taken Unknown] escitalopram oxalate 10 mg tablet (Lexapro) 30 mg PO DAILY 11/02/21 [History Last Taken Unknown] hydrocodone bitartrate 30 mg tablet,crush resist,extended rel. 24hr (Hysingla ER) 30 mg PO DAILY 11/02/21 [History Last Taken Unknown] levothyroxine 88 mcg tablet 88 mcg PO DAILY 11/02/21 [History Last Taken Unknown] losartan 100 mg tablet 100 mg PO DAILY 11/02/21 [History Last Taken Unknown] pregabalin 150 mg capsule (Lyrica) 150 mg PO BID 11/02/21 [History Last Taken Unknown] Allergy/AdvReac Type Severity Reaction Status Date / Time gabapentin Allergy Unknown Unknown Verified 10/25/21 12:55 meperidine [From Demerol] AdvReac Intermediate mental Verified 10/25/21 12:55 status change Wzxdrlw-PPZ-EuL Reductase AdvReac Intermediate Unknown Verified 10/25/21 12:55 Inhibitor [Jqktzrk-Ppw-Ull Reductase Inhibitor] Penicillins AdvReac Mild passed out Verified 10/25/21 12:55 zolpidem [From Ambien] AdvReac Mild mental Verified 10/25/21 12:55 status change topiramate AdvReac Other Verified 10/25/21 12:55 Family History Sister Diabetes Asthma Thyroid disorder Mother CVA (cerebral vascular accident) Brother CVA (cerebral vascular accident) Hypertension Heart disease Surgical History History of appendectomy History of back surgery History of cataract surgery History of cholecystectomy History of elbow surgery History of ERCP History of heart bypass surgery History of hernia repair History of hip replacement, total History of prostatectomy History of right below knee amputation Social History Smoking Status: Former smoker ROS ROS ED Constitutional Constitutional ED: Denies chills or fever(s) Eyes Eyes: Denies change in vision ENT ENT ED: Denies rhinorrhea Cardiovascular Cardiovascular: Denies chest pain or palpitations Respiratory/Chest Respiratory/Chest: Denies dyspnea Gastrointestinal Gastrointestinal: Denies abdominal pain, nausea or vomiting Genitourinary Genitourinary ED: Denies dysuria, hematuria or urinary frequency Musculoskeletal Musculoskeletal: Reports back pain; Denies myalgias Integumentary Denies rash Neurologic Neurologic: Denies headache(s) or weakness Hematologic/Lymphatic Hematologic/Lymphatic: Reports easy bleeding and easy bruising EXAM Physical Exam Const Vital Signs: 11/02/21 07:55 11/02/21 12:15 Temperature 97.4 F L Temperature Source Temporal Pulse Rate 68 88 Respiratory Rate 16 16 Blood Pressure 122/78 H 134/78 H Blood Pressure Mean 92 96 Pulse Ox 93 97 Oxygen Delivery Method Room Air Room Air HEENT Reports moist mucous membranes Eyes PERRL and EOMs intact bilaterally Neck supple Neck Narrative: normal ROM Resp normal respiratory effort and clear to auscultation bilaterally Cardio regular rate, regular rhythm and no murmurs GI normal to inspection, nondistended, normoactive bowel sounds and soft to palpation Back/Spine Back/Spine Narrative: Diffuse tenderness in the lower lumbar region around L5/sacroiliac joint. Does have midline tenderness as well as bilateral paraspinal tenderness to palpation at L5 Extremity normal to inspection Extremity Narrative: No peripheral edema. Right BKA present. 2+ left DP pulse Neuro oriented x3 and no sensory deficits noted Neuro Narrative: 5/5 strength with dorsi and plantar flexion of the left foot. Normal hip flexors on the right Sensorium / Orientation: alert Motor Exam: strength 5/5 throughout Skin no rashes or lesions noted and no wounds MDM MDM MDM Narrative Medical decision making narrative: Patient is a 75-year-old male with history of chronic leg pain as well as dementia, coronary artery disease, CHF and right BKA presenting with acute masturbation of his back pain. Patient's been having worsening back pain recently and it became worse last night. He recently saw his pain management doctor, Dr. Santana and was started on a prednisone burst but has not started taking it. Denies any cauda equina symptoms including saddle anesthesia, urinary incontinence, bowel incontinence or new leg weakness. Has no associated neurologic symptoms. Denies any trauma or injury. Was seen for fevers a week ago but that is since resolved. Lower suspicion for epidural abscess given improving systemic symptoms. Patient's nausea and vomiting has improved. Patient thinks he might of pulled his back out vomiting last week. Patient is given 2 doses of IV Dilaudid and oral Valium. He was in the ER and while he is able to do this he has worsening back spasms again when he lays back down. His is concerned about her ability to care of him. They are agreeable for admission for evaluation by PT OT and for possible SNF placement however the would like for him to go home if possible. He is given additional 4 mg of morphine. Screening labs obtained for admission which show a chronically elevated creatinine but no other acute process. Post void bladder scan shows 40 mL and the bladder and I do not think he has an acute retention. I do not think emergent back imaging is indicated at this time. Case is discussed with hospitalist, Dr. Hauser. Lab Data Attestation: I reviewed the patient's lab results. Labs: Laboratory Results - last 24 hr 11/02/21 11/02/21 11/02/21 12:18 12:18 12:18 WBC 5.0 RBC 4.90 Hgb 14.2 Hct 42.8 MCV 87.3 MCH 29.0 MCHC 33.2 RDW Std Deviation 39.8 RDW Coeff of Esthela 12.5 Plt Count 215 MPV 10.3 Immature Gran % (Auto) 0.600 Neut % (Auto) 58.9 Lymph % (Auto) 25.3 [place] % (Auto) 10.2 H Eos % (Auto) 4.2 Baso % (Auto) 0.8 Absolute Neuts (auto) 3.0 Absolute Lymphs (auto) 1.27 Nucleated RBC % 0 Sodium 142 Potassium 4.1 Chloride 106 Carbon Dioxide 32.0 Anion Gap 4 L BUN 19 H Creatinine 1.28 Estim Creat Clear Calc 46.76 Est GFR (MDRD) Af Amer 70 Est GFR (MDRD) Non-Af 58 L BUN/Creatinine Ratio 14.8 Glucose 84 Calcium 8.7 Urine Color Yellow Urine Clarity Sl. Cloudy Urine pH 7.0 Ur Specific [place] 1.010 Urine Protein 15 H Urine Glucose (UA) Normal Urine Ketones Negative Urine Occult Blood Negative Urine Nitrite Negative Urine Bilirubin Negative Urine Urobilinogen Normal Ur Leukocyte Esterase Negative Urine RBC 0 SEEN Urine WBC 0 SEEN Ur Squamous Epith Cells 0 SEEN Amorphous Sediment 2+ Urine Bacteria 1+ Urine Mucus 0 SEEN Discharge Plan Triage Chief Complaint: Back ED Provider: Ro Stevenson Dx/Rx/DC Orders Clinical Impression: Acute exacerbation of chronic low back pain, Muscle spasm of back, Difficulty in walking Prescriptions: No Action aspirin [Adult Aspirin Regimen] 81 mg tablet,delayed release (DR/EC) 81 mg PO DAILY potassium chloride 10 mEq tablet extended release 20 meq PO DAILY Eliquis 5 mg tablet 5 mg PO BID nitroglycerin [Nitrostat] 0.4 mg tablet, sublingual 0.4 mg SUBLINGUAL Q5-15M PRN (Reason: Chest Pain) colesevelam [WelChol] 625 mg tablet 1,875 mg PO TID metoprolol succinate 25 mg tablet extended release 24 hr 25 mg PO DAILY amlodipine 10 mg tablet 5 mg PO DAILY furosemide 40 mg tablet 40 mg PO DAILY magnesium oxide 400 mg tablet 500 mg PO BID cholecalciferol (vitamin D3) 2,000 unit capsule 2,500 unit PO DAILY hydromorphone 2 mg tablet 2 mg PO Q6H PRN PRN (Reason: Pain) Label Comments: TAKE 1 TABLET BY MOUTH TWICE DAILY NEEDED BREAKTHROUGH PAIN donepezil 10 mg tablet 10 mg PO DAILY famotidine 20 mg Tablet 20 mg PO BID promethazine 25 mg tablet 25 mg PO TID PRN (Reason: nausea and vomiting) Qty: 14 0RF levothyroxine 88 mcg Tablet 88 mcg PO DAILY losartan 100 mg Tablet 100 mg PO DAILY escitalopram oxalate [Lexapro] 10 mg Tablet 30 mg PO DAILY pregabalin [Lyrica] 150 mg Capsule 150 mg PO BID hydrocodone bitartrate [Hysingla ER] 30 mg Tablet,Oral Only,Ext.Rel.24 Hr 30 mg PO DAILY Primary Care Provider: Angelica Grady Referrals: Angelica Grady MD [Primary Care Provider] - Disposition Disposition: Acute Care Hospital [facility]
[2021-11-02 12:15] VITALS: BP 134/78; PULSE 88; RESP 16; O2SAT 97
[2021-11-02 12:27] LABS: Mucous, Urine 0 SEEN /hpf (<or=2+); Red Blood Cells-Urine 0 SEEN /hpf (0-5); Squamous Epithelial Cells - UA 0 SEEN /hpf (0-5); White Blood Cells 0 SEEN /hpf (0-5)
[2021-11-02 12:31] LABS: Absolute Lymphocyte Count 1.27 X10^3/uL (0.83-4.51); Basophil# 0.04 X10^3/uL; Basophil% 0.8 % (0-1); Eosinophil# 0.21 X10^3/uL; Eosinophils% 4.2 % (0-5); Hematocrit 42.8 % (40-54); Hemoglobin 14.2 g/dL (13.0-16.5); Lymphocyte # 1.27 X10^3/ul (0.83-4.51); Lymphocyte % 25.3 % (19-41); Mean Corp Hgb Conc 33.2 g/dL (32-36); Mean Corpuscular Volume 87.3 fL (80-94); Mean Platelet Vol. 10.3 fl (6.2-12.0); Monocyte# 0.51 X10^3/uL; Monocyte% 10.2 % (0-10); NRBC Flagged by Analyzer 0 % (0-5); Neutrophil # 2.95 X10^3/uL (2.7-7.7); Neutrophil % 58.9 % (47-70); Platelet Count 215 K/mm3 (150-450); RBC Distribution Width CV 12.5 % (11.6-14.6); RBC Distribution Width SD 39.8 fl (35.1-43.9)
[2021-11-02 12:44] LABS: Anion Gap 4 (5-15); BUN 19 mg/dL (7-18); BUN/Creat Ratio 14.8 RATIO (10-20); Calcium,Total 8.7 mg/dL (8.5-10.1); Chloride 106 mmol/L (98-107); Creatinine, Serum 1.28 mg/dL (0.70-1.30); EST Glomerular Filtration Rate 58 mL/min (>60); Est Glom Filt Rate - Afr Amer 70 mL/min (>60); Estimated Creatinine Clearance 46.76 ml/min; Glucose 84 mg/dL (74-106); Potassium 4.1 mmol/L (3.5-5.1); Sodium Level 142 mmol/L (136-145)
[2021-11-02] MEDS: Morphine 4 MG/ML Syringe IV (12:46)
[2021-11-02] MEDS: 0.9% Normal Saline 1,000 ML 150 ML IV (12:48)
[2021-11-02 12:49] LABS: Color, Urine Yellow (Yellow); Glucose, Dipstick Normal (Normal); Ketone-Dipstick Negative (Negative); Leukocyte Esterase-Dipstick Negative /ul (Negative); Nitrite-Dipstick Negative (Negative); Occult Blood-Urine Negative /ul (Negative); Protein-Dipstick 15 mg/dl (Negative); Urine Bilirubin Dipstick Negative (Negative); Urine Clarity Sl. Cloudy (Clear); Urine Urobilinogen Normal (Normal)
[2021-11-02 12:56] LABS: Amorphous Sediment 2+; Bacteria 1+ /hpf (None Seen)
--- NOTE | 2021-11-02 13:02 | HP.PCM.HOS_ITS ---
[facility] - General General Date of Admission: 11/02/21 Date of Service: 11/02/21 Chief Complaint: Acute on chronic back pain. HPI Narrative SHIKHA PHILIP, is a 75 M who was brought to ED by EMS for severe back pain and spasm unable to move around, even stand up. Patient has chronic back pain for many years since and had 3 surgeries last 1986. He had laminectomy and then lumbar vertebral fusion in the past. He follows pain management Dr. Santana.Patient stated he came to ED on 10/25 for febrile illness, temperature 99.7 ?F and nausea and vomiting and infectious work-up in ED was negative therefore sent home on promethazine. Patient said he had exacerbation of back pain spasm due to vomiting and retching. In ED, it was painful for him to sit up from supine position. On home med list, he also has prescription of Medrol Dosepak. Patient is further admitted. Currently, no fever. [facility] Medical History Anxiety and depression Atrial fibrillation Chronic back pain Congestive heart failure GERD (gastroesophageal reflux disease) Heart disease Hemorrhoid HTN (hypertension) Osteoarthritis Pancreatitis Sleep apnea Venous (peripheral) insufficiency Home Medications apixaban 5 mg tablet (Eliquis) 5 mg PO BID 11/29/17 [History Last Taken 11/01/21] aspirin 81 mg tablet,delayed release (Adult Aspirin Regimen) 81 mg PO DAILY 11/29/17 [History Last Taken 11/01/21] colesevelam 625 mg tablet (WelChol) 1,875 mg PO BID 11/29/17 [History Last Taken 11/01/21] furosemide 40 mg tablet 60 mg PO BID 11/29/17 [History Last Taken 11/01/21] metoprolol succinate 25 mg tablet,extended release 24 hr 37.5 mg PO DAILY 11/29/17 [History Last Taken 11/01/21] nitroglycerin 0.4 mg sublingual tablet (Nitrostat) 0.4 mg sublingual Q5-15M PRN Chest Pain 11/29/17 [History Last Taken Unknown] donepezil 10 mg tablet 10 mg PO DAILY 10/25/21 [History Last Taken 11/01/21] famotidine 20 mg tablet 20 mg PO BID 10/25/21 [History Last Taken 11/01/21] hydromorphone 2 mg tablet 2 mg PO BID PRN Breakthrough Pain 10/25/21 [History Last Taken 11/01/21] promethazine 25 mg tablet 25 mg PO TID PRN nausea and vomiting #14 tabs 10/25/21 [Rx Last Taken Unknown] Lactobacillus acidophilus (Acidophilus capsule) 1 cap PO TID immune health 11/02/21 [History Last Taken 11/01/21] amlodipine 5 mg tablet 5 mg PO DAILY bp 11/02/21 [History Last Taken 11/01/21] cholecalciferol (vitamin D3) 25 mcg (1,000 unit) capsule 25 mcg PO TID supplement 11/02/21 [History Last Taken 11/01/21] escitalopram oxalate 10 mg tablet (Lexapro) 30 mg PO DAILY 11/02/21 [History Last Taken 11/01/21] fenofibrate nanocrystallized 145 mg tablet 145 mg PO DAILY cholesterol 11/02/21 [History Last Taken 11/01/21] hydrocodone bitartrate 30 mg tablet,crush resist,extended rel. 24hr (Hysingla ER) 30 mg PO DAILY pain 11/02/21 [History Last Taken 11/01/21] levothyroxine 88 mcg tablet 88 mcg PO DAILY thyroid 11/02/21 [History Last Taken 11/01/21] zpkyva-cyyfeegb-hdetewo 36,000-114,000-180,000 unit capsule,delay rel (Creon) 2 cap PO TIDCM 11/02/21 [History Last Taken 11/01/21] losartan 100 mg tablet 100 mg PO DAILY bp 11/02/21 [History Last Taken 11/01/21] magnesium oxide 500 mg tablet 500 mg PO BID supplement 11/02/21 [History Last Taken 11/01/21] methylprednisolone 4 mg tablets in a dose pack See Rx Instructions .Route .COMPLEX 11/02/21 [History Last Taken Unknown] potassium chloride 20 mEq tablet,extended release(part/cryst) 20 meq PO DAILY supplement 11/02/21 [History Last Taken 11/01/21] pregabalin 150 mg capsule (Lyrica) 150 mg PO BID pain 11/02/21 [History Last Taken 11/01/21] Allergy/AdvReac Type Severity Reaction Status Date / Time gabapentin Allergy Unknown Unknown Verified 10/25/21 12:55 meperidine [From Demerol] AdvReac Intermediate mental Verified 10/25/21 12:55 status change Ocnlaid-GEK-KdS Reductase AdvReac Intermediate Unknown Verified 10/25/21 12:55 Inhibitor [Dbzdbdw-Peq-Lzg Reductase Inhibitor] Penicillins AdvReac Mild passed out Verified 10/25/21 12:55 zolpidem [From Ambien] AdvReac Mild mental Verified 10/25/21 12:55 status change topiramate AdvReac Other Verified 10/25/21 12:55 Family History Sister Diabetes Asthma Thyroid disorder Mother CVA (cerebral vascular accident) Brother CVA (cerebral vascular accident) Hypertension Heart disease Surgical History History of appendectomy History of back surgery History of cataract surgery History of cholecystectomy History of elbow surgery History of ERCP History of heart bypass surgery History of hernia repair History of hip replacement, total History of prostatectomy History of right below knee amputation Social History Smoking Status: Former smoker ROS ROS Narrative Constitutional: Severe pain in the back, 7-8/10 intensity with a spasm. No fever, no loss of weight. HEENT: Reports systems reviewed and no addt'l complaints, except as documented Respiratory/Chest: Denies chest pain, shortness of breath at rest or with exertion Gastrointestinal: Denies coffee ground emesis, hematemesis or vomiting Genitourinary: Denies burning urination or new urinary tract symptoms Musculoskeletal: Had 3 back surgeries, last 1 in the . Follows pain management. Right below-knee amputation uses prosthesis. Reports joint pain and limited range of motion Neurologic: Denies seizure-like activity skin: No ulcer. No rash Endocrinology: Reports systems reviewed and no addt'l complaints, except as documented Hematologic/Lymphatic: Reports systems reviewed and no addt'l complaints, except as documented Rest 14 ROS are negative except as mentioned in HPI Vital Signs Vital Signs Vital Signs: 11/02/21 07:55 11/02/21 12:15 Temperature 97.4 F L Temperature Source Temporal Pulse Rate 68 88 Respiratory Rate 16 16 Blood Pressure 122/78 H 134/78 H Blood Pressure Mean 92 96 Pulse Ox 93 97 Oxygen Delivery Method Room Air Room Air Weight Weight: 180 lb 1.28 oz Body Mass Index (BMI) 27.3 Physical Exam Narrative General: Alert, Oriented x3, Cooperative. Patient in mild distress due to pain. HEENT: Atraumatic, PERRLA, EOMI, Normocephalic Oral: No Gingival or Mucosal Lesions/ Ulcerations Neck: Supple, No JVD, Negative Carotid Bruits Lungs: Air entry equal in bilateral lung bases. No crepitation/rhonchi Cardiovascular: Regular rhythm, Normal S1, Normal S2, systolic murmur LLSB. CABG scar. Left sided pacemaker Abdomen: Bowel Sounds Present, Soft, Non Tender, Non-Distended : No renal angle tenderness. No suprapubic tenderness. Extremities: No edema, Capillary Refill Less than 3 Seconds Skin: No rashes, No breakdown Musculoskeletal: Surgical scar on lumbar spine. Had 3 surgeries. Tenderness in stiffness of paravertebral spinal muscles. Right below-knee amputation Neurological: Cranial nerves II-XII grossly intact, DTR 2+/4. Psych/Mental Status: In pain Results Lab / Micro Data Result Diagrams: 11/02/21 12:18 11/02/21 12:18 Labs: Laboratory Results - last 24 hr 11/02/21 12:18: WBC 5.0, RBC 4.90, Hgb 14.2, Hct 42.8, MCV 87.3, MCH 29.0, MCHC 33.2, RDW Std Deviation 39.8, RDW Coeff of Esthela 12.5, Plt Count 215, MPV 10.3, Immature Gran % (Auto) 0.600, Neut % (Auto) 58.9, Lymph % (Auto) 25.3, [place] % (Auto) 10.2 H, Eos % (Auto) 4.2, Baso % (Auto) 0.8, Absolute Neuts (auto) 3.0, Absolute Lymphs (auto) 1.27, Nucleated RBC % 0 11/02/21 12:18: Sodium 142, Potassium 4.1, Chloride 106, Carbon Dioxide 32.0, Anion Gap 4 L, BUN 19 H, Creatinine 1.28, Estim Creat Clear Calc 46.76, Est GFR (MDRD) Af Amer 70, Est GFR (MDRD) Non-Af 58 L, BUN/Creatinine Ratio 14.8, Glucose 84, Calcium 8.7 11/02/21 12:18: Urine Color Yellow, Urine Clarity Sl. Cloudy, Urine pH 7.0, Ur Specific [place] 1.010, Urine Protein 15 H, Urine Glucose (UA) Normal, Urine Ketones Negative, Urine Occult Blood Negative, Urine Nitrite Negative, Urine Bilirubin Negative, Urine Urobilinogen Normal, Ur Leukocyte Esterase Negative, Urine RBC 0 SEEN, Urine WBC 0 SEEN, Ur Squamous Epith Cells 0 SEEN, Amorphous Sediment 2+, Urine Bacteria 1+, Urine Mucus 0 SEEN Assessment & Plan Assessment/Plan (1) Acute exacerbation of chronic low back pain: PLAN: This 75-year-old gojnbvql-[id number]-lsc with history of chronic back pain status post 3 lumbar surgeries admitted with acute exacerbation of back pain and spasm. Inability to stand up or move. 1. Acute exacerbation of chronic lumbar back pain due to lumbar disc degenerative disorder, arthritis and fusion: Patient is being admitted on Medr floor. Pain medication and antispasmodic medication. PT and OT ordered. Patient's does not want to go to fdc. Patient was given morphine 4 mg, Dilaudid 2 mg and Valium 5 mg but still did not had much relief. Patient follows pain management Dr. Santana. On home medication patient on hyd romorphone 2 mg twice daily as needed along with hydrocodone 30 mg oral daily. 2. Coronary artery status post CABG, chronic A. fib and pacemaker and chronic heart failure: Heart failure type, classification and severity unclear. 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 No echo in our system. Last EKG on reported ventricular paced rhythm with occasional PVC. On furosemide 40 mg daily. On Eliquis 5 mg twice daily, baby aspirin, losartan and metoprolol succinate Home cardiac medications continued. 3. Right below amputation knee 4. Chronic pancreatitis on Creon pancreatic enzyme supplement. Continued 5. Anxiety and depression, chronic venous insufficiency, hypertension and dyslipidemia: Home medication reconciliation done. DVT prophylaxis on Eliquis 5 mg twice daily. Living will/advanced directive/end of life care: Patient does not have living will or advanced directive. After discussion of benefits/risks procedures involved with full code, DNR CC arrest and DNR CC, the patient opted for full code. Patient does want artificial life support including intubation, tube feed, ventilator and/chest compression, central venous catheter, vasopressor and DC shock if needed Total time spent in hmey-gw-zmwm encounter in discussion of advanced dire ctive 16 minutes. Laboratory Results 11/02/21 12:18: WBC 5.0, RBC 4.90, Hgb 14.2, Hct 42.8, MCV 87.3, MCH 29.0, MCHC 33.2, RDW Std Deviation 39.8, RDW Coeff of Esthela 12.5, Plt Count 215, MPV 10.3, Immature Gran % (Auto) 0.600, Neut % (Auto) 58.9, Lymph % (Auto) 25.3, [place] % (Auto) 10.2 H, Eos % (Auto) 4.2, Baso % (Auto) 0.8, Absolute Neuts (auto) 3.0, Absolute Lymphs (auto) 1.27, Nucleated RBC % 0 11/02/21 12:18: Sodium 142, Potassium 4.1, Chloride 106, Carbon Dioxide 32.0, Anion Gap 4 L, BUN 19 H, Creatinine 1.28, Estim Creat Clear Calc 46.76, Est GFR (MDRD) Af Amer 70, Est GFR (MDRD) Non-Af 58 L, BUN/Creatinine Ratio 14.8, Glucose 84, Calcium 8.7 11/02/21 12:18: Urine Color Yellow, Urine Clarity Sl. Cloudy, Urine pH 7.0, Ur Specific [place] 1.010, Urine Protein 15 H, Urine Glucose (UA) Normal, Urine Ketones Negative, Urine Occult Blood Negative, Urine Nitrite Negative, Urine Bilirubin Negative, Urine Urobilinogen Normal, Ur Leukocyte Esterase Negative, Urine RBC 0 SEEN, Urine WBC 0 SEEN, Ur Squamous Epith Cells 0 SEEN, Amorphous Sediment 2+, Urine Bacteria 1+, Urine Mucus 0 SEEN Charges/Coding Visit Charges OBSV E&M: 24207 Initial observation care L3 Procedures Hospitalists Procedures: 81292 Advncd Care Plan 30 Min
[2021-11-02 13:12] VITALS: BP 128/78; PULSE 78; RESP 16; TEMP 36.9; O2SAT 99
--- NOTE | 2021-11-02 13:17 | NURSING ---
MED SURG OBS NAJMA INTRACTABLE BACK PAIN
--- NOTE | 2021-11-02 13:37 | NURSING ---
315 NAJMA INTRACTABLE BACK PAIN
[2021-11-02 14:27] VITALS: BMI 27.5
[2021-11-02 14:41] VITALS: BP 114/75; PULSE 59; RESP 18; TEMP 36.6; O2SAT 98
[2021-11-02 15:17] LABS: Magnesium 2.3 mg/dL (1.6-2.6)
[2021-11-02] MEDS: tiZANidine HCl 2 MG Tablet PO ×2 (15:57→22:37)
[2021-11-02] MEDS: HYDROmorphone 0.5 MG/0.5 ML SYRINGE 1 MG IV ×2 (15:57→20:00)
[2021-11-02] MEDS: 0.9% Saline Lock 10 ML Syringe IV ×2 (15:58→20:00)
[2021-11-02] MEDS: Creon 24,000 unit DR Capsule 3 CAP PO (17:50)
[2021-11-02] MEDS: Acetaminophen 325 MG Tablet 650 MG PO (17:57)
[2021-11-02] MEDS: oxyCODONE 5 MG Tablet PO ×2 (17:57→22:37)
[2021-11-02 19:48] VITALS: BP 110/59; PULSE 60; RESP 18; TEMP 36.8; O2SAT 93
[2021-11-02] MEDS: Colestipol 1 GM TABLET PO (22:37)
[2021-11-02] MEDS: Senna/Docusate Sodium 1 Tablet 2 TABLET PO (22:37)
[2021-11-02] MEDS: Magnesium Chloride 64 MG Delay Rel.Tablet 128 MG PO (22:37)
[2021-11-02] MEDS: Pregabalin 75 MG Capsule 150 MG PO (22:37)
[2021-11-02] MEDS: APIXABAN 5 MG TABLET PO (22:37)
[2021-11-03 02:20] VITALS: BP 127/83; PULSE 60; RESP 18; TEMP 36.5; O2SAT 94
[2021-11-03] MEDS: HYDROmorphone 0.5 MG/0.5 ML SYRINGE 1 MG IV ×4 (02:27→22:02)
[2021-11-03] MEDS: 0.9% Saline Lock 10 ML Syringe IV ×4 (02:28→22:04)
[2021-11-03] MEDS: oxyCODONE 5 MG Tablet PO ×4 (05:48→19:47)
[2021-11-03] MEDS: tiZANidine HCl 2 MG Tablet PO ×3 (05:48→21:59)
[2021-11-03] MEDS: Levothyroxine 88 MCG Tablet PO (05:48)
[2021-11-03] MEDS: Acetaminophen 325 MG Tablet 650 MG PO ×2 (05:48→19:47)
[2021-11-03 05:56] LABS: Absolute Neutrophil Count 2.1 X10^3/uL (2.0-7.7); Basophil# 0.03 X10^3/uL; Basophil% 0.7 % (0-1); Eosinophil# 0.24 X10^3/uL; Eosinophils% 5.9 % (0-5); Hematocrit 40.2 % (40-54); Hemoglobin 12.9 g/dL (13.0-16.5); Lymphocyte % 29.7 % (19-41); Mean Corp Hgb Conc 32.1 g/dL (32-36); Mean Corpuscular Hgb 27.9 pg (27.0-32.0); Mean Corpuscular Volume 86.8 fL (80-94); Mean Platelet Vol. 10.2 fl (6.2-12.0); Monocyte# 0.48 X10^3/uL; Monocyte% 11.9 % (0-10); NRBC Flagged by Analyzer 0 % (0-5); Neutrophil # 2.06 X10^3/uL (2.7-7.7); Neutrophil % 51.1 % (47-70); Platelet Count 184 K/mm3 (150-450); RBC Distribution Width CV 12.4 % (11.6-14.6); RBC Distribution Width SD 39.4 fl (35.1-43.9); Red Blood Count 4.63 M/mm3 (4.6-6.2)
[2021-11-03 06:24] LABS: Anion Gap 4 (5-15); BUN 19 mg/dL (7-18); BUN/Creat Ratio 16.8 RATIO (10-20); Calcium,Total 8.4 mg/dL (8.5-10.1); Chloride 107 mmol/L (98-107); Creatinine, Serum 1.13 mg/dL (0.70-1.30); EST Glomerular Filtration Rate 67 mL/min (>60); Est Glom Filt Rate - Afr Amer 81 mL/min (>60); Estimated Creatinine Clearance 52.96 ml/min; Glucose 86 mg/dL (74-106); Potassium 3.8 mmol/L (3.5-5.1); Sodium Level 141 mmol/L (136-145)
[2021-11-03 07:49] VITALS: BP 112/72; PULSE 60; RESP 18; TEMP 36.6; O2SAT 95
[2021-11-03] MEDS: Aspirin E.C. 81 MG Tablet PO (07:55)
[2021-11-03] MEDS: Creon 24,000 unit DR Capsule 3 CAP PO ×3 (07:55→16:19)
[2021-11-03] MEDS: Potassium Chloride Oral Tablet 20 MEQ PO (07:55)
[2021-11-03] MEDS: Escitalopram Oxalate 10 MG Tablet 30 MG PO (09:47)
[2021-11-03 09:48] VITALS: PULSE 60
[2021-11-03] MEDS: APIXABAN 5 MG TABLET PO ×2 (09:48→21:58)
[2021-11-03] MEDS: Cholecalciferol (VIT D3) 25 MCG TABLET (1,000 UNITS) 50 MCG PO (09:48)
[2021-11-03] MEDS: amLODIPine 5 MG Tablet PO (09:48)
[2021-11-03] MEDS: Magnesium Chloride 64 MG Delay Rel.Tablet 128 MG PO ×2 (09:48→21:57)
[2021-11-03] MEDS: Colestipol 1 GM TABLET PO ×2 (09:48→21:58)
[2021-11-03] MEDS: Losartan Potassium 100 MG Tablet PO (09:48)
[2021-11-03] MEDS: Famotidine 20 MG Tablet PO (09:48)
[2021-11-03] MEDS: Metoprolol(XL)Succ 25 MG Tablet PO (09:48)
[2021-11-03] MEDS: Furosemide 20 MG Tablet 60 MG PO ×2 (09:49→17:46)
[2021-11-03] MEDS: Senna/Docusate Sodium 1 Tablet 2 TABLET PO ×2 (09:49→21:59)
[2021-11-03] MEDS: Lidocaine 5% Patch 1 PATCH TOPICAL (09:49)
[2021-11-03] MEDS: Donepezil HCl 10 MG Tablet PO (09:49)
[2021-11-03] MEDS: Polyethylene Glycol 3350 17 GM PACKET PO (09:49)
[2021-11-03] MEDS: Fenofibrate 145 MG Tablet PO (09:49)
[2021-11-03] MEDS: Pregabalin 75 MG Capsule 150 MG PO ×2 (09:55→21:56)
[2021-11-03 10:06] VITALS: O2SAT 96
[2021-11-03 13:29] VITALS: BP 123/73; PULSE 63; RESP 18; TEMP 36.7; O2SAT 93
--- NOTE | 2021-11-03 14:20 | CASEMGMT ---
Addendum entered by Laurel Carney 11/03/21 15:04: Received acceptance for [facility] to start on Sunday. Pt/ aware. Referral sent to palliative care at this time as well. Pt did meet criteria per [facility] Screening Tool. Addendum entered by Laurel Carney 11/03/21 14:58: LENORA VALENCIA in to pt room, pt present, she signed BAUMAN form and copy given to pt and form filed in chart. While in room, Corinna from [facility] called and states a referral was given 2-3 weeks ago by but the required documentation was not provided. Pt and states they do want the referral made to [facility], referral made for SN, PT and OT. Pt discussed Palliative Care as well and that she thinks this was talked about but has not heard from anyone. Message sent to hospitalist for order. Pt states she would like someone who could draw blood in the home. Discussed with her the [facility] expectations and that lab draws in and of itself are not a skilled service but while other skilled services are being provided, the lab draws should not be a problem. Pt verbalized understanding of criteria. Pt/ deny further needs at this time. Addendum entered by Laurel Carney 11/03/21 14:41: Received returned call from Puja at [facility]. She states [facility] is an ACO and was sending a [facility] referral to [facility]. She is aware pt is admitted and states her program is for high utilizers. Original Note: LENORA VALENCIA in to pt room to discuss dc planning. Pt states he prefers to go home. Discussed HHC with patient and a list of C providers including quality and resource use data and consistent with the patient?s preferred geographic region, medical needs, and insurance network were provided from the [employer] Guide. Pt states he needs to discuss this with his . Pt asked if CM could call his to discuss. He states he is agreeable to any HHC she picks. LENORA VALENCIA explained BAUMAN form, patient voiced understanding. Pt signed form. TC to pt . She states that pt is involved with [facility] through [facility]. She is not sure what this stands for but states she thought they were setting up HHC for pt. She states the person she is working with is Yolanda Becerra, but does not know the phone number. She thought the HHC was being set up through [facility] as [facility] does not service the patient's address. RN ERIK also explained BAUMAN form to pt . She states she is on her way to the hospital and can sign form as well. TC to [facility] and received the [facility] dept, left message for Puja Becerra and requested returned call. TC to [facility], left message with Corinna to see if a referral has been made. Will await returned calls.
--- NOTE | 2021-11-03 16:34 | PN.HOSP_ITS ---
Subjective Subjective Follow-up for acute on chronic back pain. Patient is still has severe back pain and spasm. Patient could not stand up or walk. Objective Data Objective Data Vital Signs: Vital Signs Temp Pulse Resp BP Pulse Ox O2 Del Method 98.0 F 63 18 123/73 H 93 Room Air 11/03/21 13:29 11/03/21 13:29 11/03/21 13:29 11/03/21 13:29 11/03/21 13:29 11/03/21 13:29 Oxygen Delivery Method Room Air Weight: 179 lb 10.828 oz Body Mass Index (BMI) 27.5 Intake & Output: Intake and Output for Last 24 Hours 11/01/21 11/02/21 11/03/21 23:59 23:59 23:59 Intake Total 1062.5 / 1062.5 1700 / 1700 Output Total 325 / 325 1850 / 1850 Balance 737.5 / 737.5 -150 / -150 Lab / Micro Data Result Diagrams: 11/03/21 05:47 11/03/21 05:47 Labs: Laboratory Results - last 24 hr 11/03/21 05:47: WBC 4.0 L, RBC 4.63, Hgb 12.9 L, Hct 40.2, MCV 86.8, MCH 27.9, MCHC 32.1, RDW Std Deviation 39.4, RDW Coeff of Esthela 12.4, Plt Count 184, MPV 10.2, Immature Gran % (Auto) 0.700, Neut % (Auto) 51.1, Lymph % (Auto) 29.7, [place] % (Auto) 11.9 H, Eos % (Auto) 5.9 H, Baso % (Auto) 0.7, Absolute Neuts (auto) 2.1, Absolute Lymphs (auto) 1.20, Nucleated RBC % 0 11/03/21 05:47: Sodium 141, Potassium 3.8, Chloride 107, Carbon Dioxide 30.0, Anion Gap 4 L, BUN 19 H, Creatinine 1.13, Estim Creat Clear Calc 52.96, Est GFR (MDRD) Af Amer 81, Est GFR (MDRD) Non-Af 67, BUN/Creatinine Ratio 16.8, Glucose 86, Calcium 8.4 L Physical Exam Narrative Seen and examined. General: Alert, Oriented x3, Cooperative. Pain is better but still not ambulatory. HEENT: Atraumatic, PERRLA, EOMI, Normocephalic Oral: No Gingival or Mucosal Lesions/ Ulcerations Neck: Supple, No JVD, Negative Carotid Bruits Lungs: Air entry equal in bilateral lung bases. No crepitation/rhonchi Cardiovascular: Regular rhythm, Normal S1, Normal S2, systolic murmur LLSB. CABG scar. Left sided pacemaker Abdomen: Bowel Sounds Present, Soft, Non Tender, Non-Distended : No renal angle tenderness. No suprapubic tenderness. Extremities: No edema, Capillary Refill Less than 3 Seconds Skin: No rashes, No breakdown Musculoskeletal: Surgical scar on lumbar spine. Had 3 surgeries. Tenderness, spasm and stiffness of paravertebral spinal muscles. Right below-knee amputation Neurological: Cranial nerves II-XII grossly intact, DTR 2+/4. Psych/Mental Status: Flat affect Assessment & Plan Assessment/Plan (1) Acute exacerbation of chronic low back pain: PLAN: This 75-year-old vukutfiv-gmni-nvl with history of chronic back pain status post 3 lumbar surgeries admitted with acute exacerbation of back pain and spasm. Inability to stand up or move. 1. Acute exacerbation of chronic lumbar back pain due to lumbar disc degenerative disorder, arthritis and fusion: Patient is being admitted on MedSurg floor. Pain medication and antispasmodic medication. PT and OT ordered. Patient's does not want to go to retirement. Patient was given morphine 4 mg, Dilaudid 2 mg and Valium 5 mg but still did not had much relief. Patient follows pain management Dr. Santana. On home medication patient on hydromorphone 2 mg twice daily as needed along with hydrocodone 30 mg oral daily. 11/03: Patient is still in moderate to severe pain and requiring Dilaudid on top of lidocaine patch. Oxycodone CR 10 mg twice daily added. Patient on laxative regimen MiraLAX, Metamucil and senna S. LS x-ray ordered 2. Coronary artery status post CABG, chronic A. fib and pacemaker and chronic heart failure: Heart failure type, classification and severity unclear. 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 No echo in our system. Last EKG on reported ventricular paced rhythm with occasional PVC. On furosemide 40 mg daily. On Eliquis 5 mg twice daily, baby aspirin, losartan and metoprolol succinate Home cardiac medications continued. 3. Right below amputation knee 4. Chronic pancreatitis on Creon pancreatic enzyme supplement. Continued 5. Anxiety and depression, chronic venous insufficiency, hypertension and dyslipidemia: Home medication reconciliation done. DVT prophylaxis on Eliquis 5 mg twice daily. Living will/advanced directive/end of life care: Patient does not have living will or advanced directive. After discussion of benefits/risks procedures involved with full code, DNR CC arrest and DNR CC, the patient opted for full code. Patient does want artificial life support including intubation, tube feed, ventilator and/chest compression, central venous catheter, vasopressor and DC shock if needed Total time spent in [id number]-tv-rcda encounter in discussion of advanced directive 16 minutes. Laboratory Results 11/03/21 05:47: WBC 4.0 L, RBC 4.63, Hgb 12.9 L, Hct 40.2, MCV 86.8, MCH 27.9, MCHC 32.1, RDW Std Deviation 39.4, RDW Coeff of Esthela 12.4, Plt Count 184, MPV 10.2, Immature Gran % (Auto) 0.700, Neut % (Auto) 51.1, Lymph % (Auto) 29.7, Mon o % (Auto) 11.9 H, Eos % (Auto) 5.9 H, Baso % (Auto) 0.7, Absolute Neuts (auto) 2.1, Absolute Lymphs (auto) 1.20, Nucleated RBC % 0 11/03/21 05:47: Sodium 141, Potassium 3.8, Chloride 107, Carbon Dioxide 30.0, Anion Gap 4 L, BUN 19 H, Creatinine 1.13, Estim Creat Clear Calc 52.96, Est GFR (MDRD) Af Amer 81, Est GFR (MDRD) Non-Af 67, BUN/Creatinine Ratio 16.8, Glucose 86, Calcium 8.4 L Charges/Coding Visit Charges Inpatient E&M: 68484 Subs Hosp L2
--- NOTE | 2021-11-03 17:15 | RAD_ITS ---
STUDY: X-RAY - LUMBAR SPINE REASON FOR EXAM: Male, 75 years old. Severe back pain TECHNIQUE: 4 view(s) of the lumbar spine were obtained. COMPARISON: None FINDINGS: There is straightening of the normal lumbar lordosis. Levoscoliosis centered on L5. Mild L4-5 retrolisthesis. Grade 1 L5-S1 anterolisthesis. No obvious change in flexion or extension. There is diffuse demineralization with multi-level moderate to severe endplate spondylosis. There is multi-level degenerative disc disease with multi-level disc space narrowing. There is no demonstrated fracture. Aortoiliac calcifications. RAD/L/S Spine Bending Flex/Ext IMPRESSION: Severe degenerative change of the lumbar spine without acute abnormal finding. Electronically Signed: Rikki Chavez MD at 0:31 EDT ,
[2021-11-03] MEDS: oxyCODONE HCl Cr 10 MG Tablet PO (17:46)
[2021-11-03 19:44] VITALS: BP 132/76; PULSE 60; RESP 18; TEMP 36.3; O2SAT 97
[2021-11-03] MEDS: Psyllium 1 PACKET PO (22:02)
[2021-11-04] VITALS (11 sets, daily range): BP systolic 115–139; BP diastolic 66–94; PULSE 62–97; RESP 6–18; TEMP 36.5–38.8; O2SAT 87–94
[2021-11-04] MEDS: Acetaminophen 325 MG Tablet 650 MG PO (02:34)
[2021-11-04] MEDS: oxyCODONE 5 MG Tablet PO (02:35)
[2021-11-04] MEDS: HYDROmorphone 0.5 MG/0.5 ML SYRINGE 1 MG IV ×2 (05:46→11:35)
[2021-11-04] MEDS: Levothyroxine 88 MCG Tablet PO (05:46)
[2021-11-04] MEDS: tiZANidine HCl 2 MG Tablet PO (05:46)
[2021-11-04] MEDS: 0.9% Saline Lock 10 ML Syringe IV ×2 (05:47→10:30)
--- NOTE | 2021-11-04 10:25 | MRI_ITS ---
STUDY: MRI LUMBAR SPINE WITH AND WITHOUT CONTRAST REASON FOR EXAM: Male, 75 years old. Back epidural abscess TECHNIQUE: Standardized fat and water weighted pulse sequences were obtained in the sagittal and axial planes. 17 mL of IV Clariscan was administered for the contrast portion of the examination. COMPARISON: None FINDINGS: T9-T10: (Sagittal only). Normal endplates. Normal disc height and morphology. No ventral extradural defect. Normal central canal. The bilateral intervertebral neural foramina are barely included and without obvious abnormality. T10-T11: (Sagittal only). Normal endplates. Normal disc height, hydration and morphology. Normal central canal and bilateral intervertebral neural foramina. T11-T12: (Sagittal only). Normal endplates. Mild disc space height narrowing. Minimal ventral extra dural defect due to small posterior bulging annulus. Normal central canal and bilateral intervertebral neural foramina. T12-L1: (Sagittal only). Normal T12 inferior endplate. Minimal anterior wedging of L1 superior endplate is from remote injury. This accounts for the mild increased disc space height. No ventral extradural defect. Normal central canal and bilateral intervertebral neural foramina. Normal lumbar lordosis. There is no substantial scoliosis. Normal conus medullaris that terminates at the lower T12 vertebral body level. L1-2: Pronounced disc space height narrowing. Small ventral extra dural defect due to bone spur. Normal facet joints. Normal central canal and bilateral lateral recesses. Normal right intervertebral neural foramen. Mild stenosis of the left intervertebral neural foramen. L2-3: Mild MODIC type II degenerative vertebral marrow fatty infiltration underneath the left side of the vertebral endplates. Pronounced disc space height narrowing. Prominent asymmetric lateral marginal spurs. Small posterior marginal spurs. Mild asymmetric degenerative facet arthropathy. Normal central canal and bilateral lateral recesses. Normal bilateral intervertebral neural foramina. L3-4: Mild MODIC type II degenerative vertebral marrow fatty changes underneath the vertebral endplates. Pronounced right-sided disc space height narrowing. Grade 1 right lateral degenerative subluxation of L3 on L4. Mild right lateral wedging of the L3 vertebral body is from remote injury. Mild bilateral degenerative facet arthropathy. Normal central canal and bilateral lateral recesses. Moderate stenosis of the right intervertebral neural foramen. Normal left intervertebral neural foramen. L4-5: Mild MODIC type II degenerative vertebral marrow fatty changes underneath the vertebral endplates. Pronounced disc space height narrowing. Grade 1 degenerative retrolisthesis of L4 on L5. Moderate bilateral degenerative facet arthropathy. Normal central canal and bilateral lateral recesses. Pronounced stenosis of the right intervertebral neural foramen. Moderately pronounced stenosis of the left intervertebral neural foramen. L5-S1: Normal endplates. Normal disc height and morphology. Grade 1 anterolisthesis of L5 on S1. Mild asymmetric degenerative facet arthropathy. Normal central canal and bilateral lateral recesses. Normal right intervertebral neural foramen. Mild stenosis of the left intervertebral neural foramen. Normal visualized sacral ala. Normal visualized paraspinous soft tissue structures. Following IV contrast administration, there are no abnormal enhancing lesions intradurally and extradurally. No abnormal contrast enhancement of the lumbar disks and vertebral bodies of the lumbar sacral spine. MRI/Spine Lumbar W/WO Contrast IMPRESSION: 1. Limited soft tissue detail due to motion. 2. No MRI evidence of epidural abscess, discitis or vertebral body osteomyelitis. 3. Pronounced stenosis of the right L4-L5 intervertebral neural foramen, moderately pronounced stenosis of the left L4-L5 intervertebral neural foramen and grade 1 degenerative retrolisthesis of L4 on L5. 4. Grade 1 anterolisthesis of L5 on S1 may be on a degenerative basis. Bone detail is limited. I am unable to determine the presence of L5 pars defects. 5. Grade 1 right lateral degenerative subluxation of L3 on L4, old right lateral wedge compression fracture of L3 vertebral body and moderate stenosis of the right intervertebral neural foramen. 6. No MRI evidence of lumbar extruded disc fragment. Electronically Signed: Antione Marcum MD at 14:21 EDT ,
[2021-11-04] MEDS: Ondansetron 4 MG/2 ML Vial IV ×2 (10:30→18:18)
--- NOTE | 2021-11-04 11:10 | RAD_ITS ---
STUDY: X-RAY - ABDOMEN/PELVIS REASON FOR EXAM: Male, 75 years old. N/V, suspecting ileus -- on opoid meds TECHNIQUE: AP supine and decubitus views of the abdomen and pelvis. COMPARISON: None. FINDINGS: Normal visualized lung bases. There is a moderate amount of colonic fecal material. There is no demonstrated free abdominal air. The visualized liver, spleen and kidneys are grossly normal in size and morphology. There are calcified phleboliths in the pelvis. There are diffuse degenerative changes of the visualized lumbar spine. Dextroscoliosis. Deformity of both iliac wings most likely segment 2 prior bone harvesting. RAD/Abd Inc Decub and/or Erect IMPRESSION: Moderate amount of fecal material is seen in the colon. Electronically Signed: Jourdan Sandy MD at 12:19 EDT ,
--- NOTE | 2021-11-04 11:25 | NURSING ---
pt to x ray and returned
--- NOTE | 2021-11-04 12:37 | PN.HOSP_ITS ---
Subjective Subjective Seen and examined. Follow-up for severe lumbar back pain status post laminectomy surgery. Yesterday lumbar spine x-ray was done does not show acute abnormality but chronic changes or previous surgeries and degenerative changes. Patient had fever in the morning. Patient also mild nausea mainly dry heaving with little vomiting. Denies abdominal pain. Patient had bowel movement yesterday. Objective Data Objective Data Vital Signs: Vital Signs Temp Pulse Resp BP Pulse Ox O2 Del Method O2 Flow Rate 101.8 F H 90 15 125/69 H 94 Nasal Cannula 4 11/04/21 09:00 11/04/21 12:24 11/04/21 12:24 11/04/21 12:24 11/04/21 12:24 11/04/21 12:24 11/04/21 12:24 Oxygen Flow Rate (L/min) 4 Oxygen Delivery Method Nasal Cannula Weight: 177 lb 11.081 oz Body Mass Index (BMI) 27.5 Intake & Output: Intake and Output for Last 24 Hours 11/02/21 11/03/21 11/04/21 23:59 23:59 23:59 Intake Total 1062.5 / 1062.5 1700 / 1700 800 / 800 Output Total 325 / 325 1850 / 1850 Balance 737.5 / 737.5 -150 / -150 800 / 800 Lab / Micro Data Result Diagrams: 11/03/21 05:47 11/03/21 05:47 Radiography Diagnostic Testing: Radiology Impression Lumbar Spine X-Ray 11/03/21 17:15 IMPRESSION: Severe degenerative change of the lumbar spine without acute abnormal finding. Electronically Signed: Rikki Chavez MD at 0:31 EDT , Abdomen X-Ray 11/04/21 11:10 IMPRESSION: Moderate amount of fecal material is seen in the colon. Electronically Signed: Jourdan Sandy MD at 12:19 EDT , Physical Exam Narrative Seen and examined. General: Confused, mild lethargy with disoriented. HEENT: Atraumatic, PERRLA, EOMI, Normocephalic Oral: No Gingival or Mucosal Lesions/ Ulcerations Neck: Supple, No JVD, Negative Carotid Bruits Lungs: Air entry equal in bilateral lung bases. No crepitation/rhonchi Cardiovascular: Regular rhythm, Normal S1, Normal S2, systolic murmur LLSB. CABG scar. Left sided pacemaker Abdomen: Bowel Sounds sluggish, soft, nontender nondistended. : No renal angle tenderness. No suprapubic tenderness. Extremities: No edema, Capillary Refill Less than 3 Seconds Skin: No rashes, No breakdown Musculoskeletal: Surgical scar on lumbar spine. Had 3 surgeries. Tenderness, spasm and stiffness of paravertebral spinal muscles slightly better.. Right below-knee amputation Neurological: Cranial nerves II-XII grossly intact, DTR 2+/4. Psych/Mental Status: Flat affect Assessment & Plan Assessment/Plan (1) Acute exacerbation of chronic low back pain: PLAN: This 75-year-old [id number] with history of chronic back pain status post 3 lumbar surgeries admitted with acute exacerbation of back pain and spasm. Inability to stand up or move. 1. Acute exacerbation of chronic lumbar back pain due to lumbar disc degene rative disorder, arthritis and fusion: [facility] Pain medication and antispasmodic medication. PT and OT ordered. Patient's does not want to go to [facility]. Patient was given morphine 4 mg, Dilaudid 2 mg and Valium 5 mg but still did not had much relief. Patient follows pain management Dr. Santana. On home medication patient on hydromorphone 2 mg twice daily as needed along with hydrocodone 30 mg oral daily. 11/03: Patient is still in moderate to severe pain and requiring Dilaudid on top of lidocaine patch. Oxycodone CR 10 mg twice daily added. Patient on laxative regimen MiraLAX, Metamucil and senna S. LS x-ray ordered 11/04: Fever T-max 101.8 Fahrenheit. Patient is still complaining of severe back pain although is more confused and lethargic. Lumbar spine x-ray shows degenerative changes but no acute changes. MRI with and without contrast is ordered. Discussed with the spine surgeon Dr. Lord, ESR CRP ordered. Voice message left for Dr. Valdovinos to call back and requested pain management consult. Plan discussed with patient's near the bedside. Abdominal x-ray shows moderate amount of fecal matter in colon but no air-fluid level. Patient on clear liquid when awake. 2. Coronary artery status post CABG, chronic A. fib and pacemaker and chronic heart failure: Heart failure type, classification and severity unclear. 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 No echo in our system. Last EKG on reported ventricular paced rhythm with occasional PVC. On furosemide 40 mg daily. On Eliquis 5 mg twice daily, baby aspirin, losartan and metoprolol succinate Home cardiac medications continued. 3. Right below amputation knee 4. Chronic pancreatitis on Creon pancreatic enzyme supplement. Continued 5. Anxiety and depression, chronic venous insufficiency, hypertension and dyslipidemia: Home medication reconciliation done. Acute encephalopathy most probably due to opioid medications. Oxycodone controlled release discontinued. DVT prophylaxis on Eliquis 5 mg twice daily. Total time of the visit including total time spent in counseling or coordination of care, (more than 50% of the total time, spent in obtaining medical information from nurses and other ancillary care providers,explaining to the patient about labs, imaging, diagnosis and management of active complex medical conditions), clinical improvement to the patient's , discussion with the spine surgeon, pain management consult, discussion with radiology department, review of labs and imaging is 40 minutes. Living will/advanced directive/end of life care: Patient does not have living will or advanced directive. After discussion of benefits/risks procedures involved with full code, DNR CC arrest and DNR CC, the patient opted for full code. Patient does want artificial life support including intubation, tube feed, ventilator and/chest compression, central venous catheter, vasopressor and DC shock if needed Total time spent in [id number] encounter in discussion of advanced directive 16 minutes. Clinical Impression(s) from Imaging Studies Lumbar Spine X-Ray 11/03/21 17:15 IMPRESSION: Severe degenerative change of the lumbar spine without acute abnormal finding. Abdomen X-Ray 11/04/21 11:10 IMPRESSION: Moderate amount of fecal material is seen in the colon. Laboratory Results 11/03/21 05:47: WBC 4.0 L, RBC 4.63, Hgb 12.9 L, Hct 40.2, MCV 86.8, MCH 27.9, MCHC 32.1, RDW Std Deviation 39.4, RDW Coeff of Esthela 12.4, Plt Count 184, MPV 10.2, Immature Gran % (Auto) 0.700, Neut % (Auto) 51.1, Lymph % (Auto) 29.7, [place] % (Auto) 11.9 H, Eos % (Auto) 5.9 H, Baso % (Auto) 0.7, Absolute Neuts (auto) 2.1, Absolute Lymphs (auto) 1.20, Nucleated RBC % 0 11/03/21 05:47: Sodium 141, Potassium 3.8, Chloride 107, Carbon Dioxide 30.0, Anion Gap 4 L, BUN 19 H, Creatinine 1.13, Estim Creat Clear Calc 52.96, Est GFR (MDRD) Af Amer 81, Est GFR (MDRD) Non-Af 67, BUN/Creatinine Ratio 16.8, Glucose 86, Calcium 8.4 L Charges/Coding Visit Charges Inpatient E&M: 71569 Subs Hosp L3
[2021-11-04 13:42] LABS: Absolute Lymphocyte Count 0.29 X10^3/uL (0.83-4.51); Absolute Neutrophil Count 10.4 X10^3/uL (2.0-7.7); Basophil# 0.03 X10^3/uL; Basophil% 0.3 % (0-1); Eosinophil# 0.01 X10^3/uL; Eosinophils% 0.1 % (0-5); Hemoglobin 14.5 g/dL (13.0-16.5); Lymphocyte # 0.29 X10^3/ul (0.83-4.51); Lymphocyte % 2.5 % (19-41); Mean Corp Hgb Conc 33.7 g/dL (32-36); Mean Corpuscular Hgb 28.8 pg (27.0-32.0); Mean Corpuscular Volume 85.3 fL (80-94); Mean Platelet Vol. 10.8 fl (6.2-12.0); Monocyte# 0.67 X10^3/uL; Monocyte% 5.9 % (0-10); NRBC Flagged by Analyzer 0 % (0-5); Neutrophil # 10.39 X10^3/uL (2.7-7.7); Neutrophil % 90.7 % (47-70); POSITIVE DIFFERENTIAL YES; Platelet Count 168 K/mm3 (150-450); RBC Distribution Width CV 12.5 % (11.6-14.6); RBC Distribution Width SD 38.5 fl (35.1-43.9); Red Blood Count 5.04 M/mm3 (4.6-6.2); White Blood Count 11.5 K/mm3 (4.4-11.0)
[2021-11-04 13:43] LABS: Differential Indicated SCAN CRITERIA MET
--- NOTE | 2021-11-04 13:44 | CASEMGMT ---
Spoke with Corinna at [facility], she is aware pt will not dc today. Will touch base on Sunday for plan.
[2021-11-04] MEDS: Lactated Ringers 1,000 ML 75 ML IV (13:58)
[2021-11-04 14:07] LABS: Differential Comment SCANNED
[2021-11-04 14:12] LABS: ALB/GLOB Ratio 1.2 RATIO (0.9-2.4); AST(SGOT) 35 U/L (15-37); Alanine Aminotransfer ALT/SGPT 31 U/L (16-61); Albumin, Serum 3.8 g/dL (3.2-5.0); Alkaline Phosphatase 47 U/L (45-117); Anion Gap 7 (5-15); BUN 19 mg/dL (7-18); BUN/Creat Ratio 14.4 RATIO (10-20); CPK Total, Creatine Kinase 111 U/L (39-308); Calcium,Total 8.9 mg/dL (8.5-10.1); Chloride 103 mmol/L (98-107); Creatinine, Serum 1.32 mg/dL (0.70-1.30); EST Glomerular Filtration Rate 56 mL/min (>60); Est Glom Filt Rate - Afr Amer 68 mL/min (>60); Estimated Creatinine Clearance 45.34 ml/min; Globulin 3.2 g/dL (2.2-4.2); Glucose 141 mg/dL (74-106); Potassium 3.3 mmol/L (3.5-5.1); Sodium Level 138 mmol/L (136-145)
[2021-11-04] MEDS: Acetaminophen 650 MG Suppository RC (14:20)
--- NOTE | 2021-11-04 14:24 | NURSING ---
spoke w/pamela in Rx to please send 1st dose of maxipime
--- NOTE | 2021-11-04 14:35 | RAD_ITS ---
STUDY: PORTABLE AP UPRIGHT CHEST X-RAY OF 2027 HOURS ON 11/04/2021 REASON FOR EXAM: 75-year-old male with cough and fever. TECHNIQUE: A single view portable AP upright chest x-ray was performed per protocol. COMPARISON: 10/25/2021. FINDINGS: Lordotic view. Previous sternal thoracotomy. The the third upper wire and the two lower wires and sternal thoracotomy are fractured. There is no cardiomegaly or heart failure. There is a single lead pacemaker with its distal lead in the region of the interventricular septum. Mild upper mediastinal widening, which is probably postsurgical and is unchanged since previous study of 10/25/2021. There is no evidence of pulmonary infiltrates, atelectasis, effusion, or pulmonary mass lesions. There is no pneumonia, pneumonitis or bronchitis. RAD/Chest 1 View (Portable) IMPRESSION: 1. Previous sternal thoracotomy with fractures of the third, sixth and seventh wires. 2. No cardiomegaly or heart failure. 3. Single lead pacemaker with its distal lead in the region of the interventricular septum. 4. Mild upper mediastinal widening, unchanged since the previous study of 10/25/2021 and probably is postsurgical in etiology. 5. No pulmonary infiltrates and atelectasis, effusion, pulmonary mass lesions. No pneumonia, pneumonitis or bronchitis. Electronically Signed: Sebastian Phillips MD at 0:48 EDT ,
[2021-11-04 15:06] LABS: Bedside Glucose 130 mg/dL (74-106)
[2021-11-04] MEDS: HYDROmorphone 0.5 MG/0.5 ML SYRINGE IV (15:17)
[2021-11-04] MEDS: Metoclopramide 10 MG/2 ML Vial 5 MG IV (15:17)
[2021-11-04] MEDS: dexAMETHasone 4 MG/ML Vial IV ×2 (15:19→21:13)
--- NOTE | 2021-11-04 15:32 | CASEMGMT ---
LENORA VALENCIA Assessment: Face to Face with pt for initial transition planning/care coordination assessment. LENORA VALENCIA introduced self and role at [facility], pt voices understanding and consents to assessment, pt asks to complete assessment. Care providers, pharmacy, and demographics verified/updated. Admitting Dx: acute on chronic back pain PCP:Ysabel Specialists:Max, pain mgmt; Meagan, cardio; Pacemaker cardio from [employer]; Sweeper[facility]ancisc[facility] Simple Admit; Josh, GI; Al Nemr, ID Preferred Pharmacy: [facility] Insurance: [employer] [facility] [employer] Prescription Benefit: yes LW/HPOA: Pt has a LW/DPOA and his Michelle is the DPOA. LNOK: Michelle Kemp, ; Laith Kemp, son Living Arrangements: Pt lives with in a single story house with a ramp to enter. Pt is I in ADL's mostly and assists. Pt denies concerns at home. Transportation: Pt provides transportation for patient. DME/HHC/SNF: Pt has a cane, FWW, shower chair, w/c, rollator, prosthetic leg and grab bars in the bathroom. Pt has not had previous HHC or SNF stays. Pt states no concerns with going home at time of dc. [facility] HHC set up. Palliative Care to see pt and today at 4pm. Pt/ states no further concerns/needs. CM to follow. Advised pt to ask CM if any further question/concerns/needs arise, voices understanding. Pt Goal: Home with HHC and Palliative Care Plan: Home with HHC and Palliative Care
--- NOTE | 2021-11-04 15:51 | NURSING ---
1245-assisted mri staff in complete bed change w/pt d/t incontWillam reyes informed of bloody stool.
--- NOTE | 2021-11-04 16:46 | CASEMGMT ---
Social Work SW spoke with Palliative Care Liaison who states she met with pt and pt signed papers to start with palliative program. CHANTEL Murray
--- NOTE | 2021-11-04 16:57 | PCM.CONS.B ---
Consult Date of Consult: 11/04/21 This patient is a 75-year-old gentleman who presented with an orthopedic complaint of severe low back pain and spasms. He apparently has been quite sick at home according to his and he was throwing up and retching and this seemed to get his back going. She had 3 back surgeries way back in in the day and he basically lives in with low back pain. He lost his leg in [place]. Also has many other medical problems include including chronic pancreatitis and on top of that he has some degree of dementia. Basically Dr. Hauser asked me to see if the patient possibly had either an epidural abscess or perhaps osteomyelitis of the lumbar spine as his underlying reason for all the pain. I reviewed the MRI scan and again there was no evidence of any osteomyelitis or epidural steroid. This was even reported by the neuroradiologist that read the MRI. Does have some degenerative disease throughout his lumbar spine with some foraminal stenosis here and there but nothing dramatic. For now would simply recommend palliative care including pain control. Thank you for this consultation. This is the end of consultation on Ricki Kemp. This is Dr. Lord dictating.
[2021-11-04] MEDS: APIXABAN 5 MG TABLET PO (21:13)
[2021-11-04 22:40] LABS: Atypical Lymphocyte SCANNED %; Dohle Bodies SCANNED; Erythrocyte Sedimentation Rate 6 mm/hr (0-20); Hypersegmented Neutrophils SCANNED; Reactive Lymphocyte SCANNED; Toxic Granulation SCANNED
[2021-11-05] VITALS (9 sets, daily range): BP systolic 136–147; BP diastolic 70–93; PULSE 71–88; RESP 16–18; TEMP 36.4–37.1; O2SAT 94–98
[2021-11-05] MEDS: Lactated Ringers 1,000 ML 75 ML IV (02:33)
--- NOTE | 2021-11-05 03:13 | NURSING ---
Lab called results of blood culture - 1 out of 4 bottles - gram negative rods. Text sent to Dr Quijano making her aware.
[2021-11-05] MEDS: Ondansetron 4 MG/2 ML Vial IV ×3 (06:18→21:23)
[2021-11-05] MEDS: dexAMETHasone 4 MG/ML Vial IV ×2 (06:18→23:32)
[2021-11-05 08:05] LABS: Absolute Lymphocyte Count 0.44 X10^3/uL (0.83-4.51); Basophil# 0.01 X10^3/uL; Basophil% 0.1 % (0-1); Hematocrit 41.6 % (40-54); Hemoglobin 13.5 g/dL (13.0-16.5); Lymphocyte # 0.44 X10^3/ul (0.83-4.51); Lymphocyte % 3.2 % (19-41); Mean Corp Hgb Conc 32.5 g/dL (32-36); Mean Corpuscular Hgb 28.1 pg (27.0-32.0); Mean Corpuscular Volume 86.5 fL (80-94); Mean Platelet Vol. 11.1 fl (6.2-12.0); Monocyte# 0.34 X10^3/uL; Monocyte% 2.5 % (0-10); NRBC Flagged by Analyzer 0 % (0-5); Neutrophil # 12.97 X10^3/uL (2.7-7.7); Neutrophil % 93.8 % (47-70); POSITIVE DIFFERENTIAL YES; Platelet Count 168 K/mm3 (150-450); RBC Distribution Width CV 12.7 % (11.6-14.6); RBC Distribution Width SD 39.8 fl (35.1-43.9); Red Blood Count 4.81 M/mm3 (4.6-6.2); White Blood Count 13.8 K/mm3 (4.4-11.0)
[2021-11-05 08:21] LABS: Differential Indicated SCAN CRITERIA MET
[2021-11-05] MEDS: Metoclopramide 10 MG/2 ML Vial 5 MG IV ×2 (08:29→08:59)
[2021-11-05] MEDS: 0.9% Saline Lock 10 ML Syringe IV ×6 (08:30→23:32)
[2021-11-05 08:37] LABS: Anion Gap 11 (5-15); BUN 22 mg/dL (7-18); BUN/Creat Ratio 16.1 RATIO (10-20); Calcium,Total 8.9 mg/dL (8.5-10.1); Chloride 106 mmol/L (98-107); Creatinine, Serum 1.37 mg/dL (0.70-1.30); EST Glomerular Filtration Rate 53 mL/min (>60); Est Glom Filt Rate - Afr Amer 65 mL/min (>60); Estimated Creatinine Clearance 43.69 ml/min; Glucose 187 mg/dL (74-106); Potassium 3.1 mmol/L (3.5-5.1); Sodium Level 141 mmol/L (136-145)
[2021-11-05] MEDS: diazePAM 2 MG Tablet PO (08:58)
--- NOTE | 2021-11-05 09:29 | PCM.PN.HOSP ---
Subjective Subjective Follow-up for severe back pain and fever on 11/04/2021 Seen and examined. Patient did not had fever after 2 episodes yesterday. Patient is still has dry heaving despite giving Reglan 5 mg and Zofran 4 mg. No vomiting. No abdominal pain. Patient had good bowel movement yesterday. States back pain is same Objective Data Objective Data Vital Signs: Vital Signs Temp Pulse Resp BP Pulse Ox O2 Del Method O2 Flow Rate 98.8 F 71 16 136/72 H 94 Nasal Cannula 2 11/05/21 02:27 11/05/21 02:27 11/05/21 02:27 11/05/21 02:27 11/05/21 08:00 11/05/21 02:34 11/05/21 02:34 Oxygen Flow Rate (L/min) 2 Oxygen Delivery Method Nasal Cannula Weight: 177 lb 0.499 oz Body Mass Index (BMI) 27.5 Intake & Output: Intake and Output for Last 24 Hours 11/03/21 11/04/21 11/05/21 23:59 23:59 23:59 Intake Total 1700 / 1700 1060 / 1060 1013.75 / 1013.75 Output Total 1850 / 1850 700 / 700 Balance -150 / -150 1060 / 1060 313.75 / 313.75 Lab / Micro Data Result Diagrams: 11/05/21 07:17 11/05/21 07:17 Labs: Laboratory Results - last 24 hr 11/04/21 13:20: WBC 11.5 H, RBC 5.04, Hgb 14.5, Hct 43.0, MCV 85.3, MCH 28.8, MCHC 33.7, RDW Std Deviation 38.5, RDW Coeff of Esthela 12.5, Plt Count 168, MPV 10.8, Immature Gran % (Auto) 0.500, Neut % (Auto) 90.7 H, Lymph % (Auto) 2.5 L, Bergen % (Auto) 5.9, Eos % (Auto) 0.1, Baso % (Auto) 0.3, Absolute Neuts (auto) 10.4 H, Absolute Lymphs (auto) 0.29 L, Nucleated RBC % 0, Differential Comment SCANNED, Hypersegmented Neuts SCANNED, Atypical Lymphocytes SCANNED, Reactive Lymphocytes SCANNED, Toxic Granulation SCANNED, Dohle Bodies SCANNED, ESR 6 11/04/21 13:20: Sodium 138, Potassium 3.3 L, Chloride 103, Carbon Dioxide 28.0, Anion Gap 7, BUN 19 H, Creatinine 1.32 H, Estim Creat Clear Calc 45.34, Est GFR (MDRD) Af Amer 68, Est GFR (MDRD) Non-Af 56 L, BUN/Creatinine Ratio 14.4, Glucose 141 H, Calcium 8.9, Total Bilirubin 1.20 H, AST 35, ALT 31, Alkaline Phosphatase 47, Total Creatine Kinase 111, C-React Prot Ext Range 27.20 H, Total Protein 7.0, Albumin 3.8, Globulin 3.2, Albumin/Globulin Ratio 1.2 11/04/21 13:51: POC Glucose 130 H 11/05/21 07:17: WBC 13.8 H, RBC 4.81, Hgb 13.5, Hct 41.6, MCV 86.5, MCH 28.1, MCHC 32.5, RDW Std Deviation 39.8, RDW Coeff of Esthela 12.7, Plt Count 168, MPV 11.1, Immature Gran % (Auto) 0.400, Neut % (Auto) 93.8 H, Lymph % (Auto) 3.2 L, Bergen % (Auto) 2.5, Eos % (Auto) 0.0, Baso % (Auto) 0.1, Absolute Neuts (auto) 13.0 H, Absolute Lymphs (auto) 0.44 L, Nucleated RBC % 0 11/05/21 07:17: Sodium 141, Potassium 3.1 L, Chloride 106, Carbon Dioxide 24.0, Anion Gap 11, BUN 22 H, Creatinine 1.37 H, Estim Creat Clear Calc 43.69, Est GFR (MDRD) Af Amer 65, Est GFR (MDRD) Non-Af 53 L, BUN/Creatinine Ratio 16.1, Glucose 187 H, Calcium 8.9 Micro: Microbiology 11/04/21 13:20 Blood Culture (Wb) - Anticubital Right Blood Culture - Preliminary 11/04/21 13:30 Blood Culture (Wb) - Left Wrist Blood Culture - Preliminary 11/04/21 16:29 Stool Stool Occult Blood (YARIEL) - Final Occult Blood Positive Radiography Diagnostic Testing: Radiology Impression Lumbar Spine MRI 11/04/21 10:25 IMPRESSION: 1. Limited soft tissue detail due to motion. 2. No MRI evidence of epidural abscess, discitis or vertebral body osteomyelitis. 3. Pronounced stenosis of the right L4-L5 intervertebral neural foramen, moderately pronounced stenosis of the left L4-L5 intervertebral neural foramen and grade 1 degenerative retrolisthesis of L4 on L5. 4. Grade 1 anterolisthesis of L5 on S1 may be on a degenerative basis. Bone detail is limited. I am unable to determine the presence of L5 pars defects. 5. Grade 1 right lateral degenerative subluxation of L3 on L4, old right lateral wedge compression fracture of L3 vertebral body and moderate stenosis of the right intervertebral neural foramen. 6. No MRI evidence of lumbar extruded disc fragment. Electronically Signed: Antione Marcum MD at 14:21 EDT , Abdomen X-Ray 11/04/21 11:10 IMPRESSION: Moderate amount of fecal material is seen in the colon. Electronically Signed: Jourdan Sandy MD at 12:19 EDT , Chest X-Ray 11/04/21 14:35 IMPRESSION: 1. Previous sternal thoracotomy with fractures of the third, sixth and seventh wires. 2. No cardiomegaly or heart failure. 3. Single lead pacemaker with its distal lead in the region of the interventricular septum. 4. Mild upper mediastinal widening, unchanged since the previous study of 10/25/2021 and probably is postsurgical in etiology. 5. No pulmonary infiltrates and atelectasis, effusion, pulmonary mass lesions. No pneumonia, pneumonitis or bronchitis. Electronically Signed: Sebastian Phillips MD at 0:48 EDT , Physical Exam Narrative Seen and examined. Patient is more anxious with feeling of restlessness. No fevers since yesterday afternoon. Heart rate and blood pressure controlled. Patient had bowel movement yesterday. Voiding urine spontaneously. General: Awake, alert and oriented x3. HEENT: Atraumatic, PERRLA, EOMI, Normocephalic Oral: No Gingival or Mucosal Lesions/ Ulcerations Neck: Supple, No JVD, Negative Carotid Bruits Lungs: Air entry equal in bilateral lung bases. No crepitation/rhonchi Cardiovascular: Regular rhythm, Normal S1, Normal S2, systolic murmur LLSB. CABG scar. Left sided pacemaker Abdomen: Bowel Sounds sluggish, soft, nontender nondistended. : No renal angle tenderness. No suprapubic tenderness. Extremities: No edema, Capillary Refill Less than 3 Seconds Skin: No rashes, No breakdown Musculoskeletal: Surgical scar on lumbar spine.Tenderness and stiffness of paravertebral spinal muscles better.. Cannot sit up with some discomfort. Right below-knee amputation Neurological: Cranial nerves II-XII grossly intact, DTR 2+/4. Psych/Mental Status: Flat affect, anxious looking Assessment & Plan Assessment/Plan (1) Acute exacerbation of chronic low back pain: PLAN: This 75-year-old [id number] with history of chronic back pain status post 3 lumbar surgeries admitted with acute exacerbation of back pain and spasm. Inability to stand up or move. 1. Acute exacerbation of chronic lumbar back pain due to lumbar disc degenerative disorder, arthritis and fusion: [facility] Pain medication and antispasmodic medication. PT and OT ordered. Patient's does not want to go to skilled nursing. Patient was given morphine 4 mg, Dilaudid 2 mg and Valium 5 mg but still did not had much relief. Patient follows pain management Dr. Santana. On home medication patient on hydromorphone 2 mg twice daily as needed along with hydrocodone 30 mg oral daily. 11/03: Patient is still in moderate to severe pain and requiring Dilaudid on top of lidocaine patch. Oxycodone CR 10 mg twice daily added. Patient on laxative regimen MiraLAX, Metamucil and senna S. LS x-ray ordered 11/04: Fever T-max 101.8 Fahrenheit. Patient is still complaining of severe back pain although is more confused and lethargic. Lumbar spine x-ray shows degenerative changes but no acute changes. MRI with and without contrast is ordered. Discussed with the spine surgeon Dr. Lord, ESR CRP ordered. Voice message left for Dr. Valdovinos to call back and requested pain management consult. Plan discussed with patient's near the bedside. Abdominal x-ray shows moderate amount of fecal matter in colon but no air-fluid level. Patient on clear liquid when awake. 11/05: Tenderness, stiffness/spasm better. Patient still not able to sit upright for long time or without pain. PT and OT working. GNR Bacteremia, source unclear: Prelim gram stain of blood cultures x2 bottles from 11/04 shows both bottles GNR. Patient was seen and evaluated by Dr. Lord on 11/04 and I agree with MRI report. Does not have infectious source in the spine with no features of discitis abscess or osteomyelitis. Chest x-ray imaging reviewed does not show acute infiltrate consultation or atelectasis. Continue incentive spirometry. Patient has good bowel sounds with no tenderness, diarrhea. Clear liquid as per tolerated allowed. ESR normal but CRP elevated. Patient has leukocytosis even before starting dexamethasone yesterday. Today is 13.8 K with left shift. UA is negative with WBC 0 RBC 0. Patient is started empirically on IV antibiotics cefepime on 11/04 and added Flagyl on 11/05. Infectious disease entry level sales consultant Dr. Veliz called and discussed. He thinks patient is on appropriate antibiotic regimen and if he remains febrile can discontinue Flagyl tomorrow. Urine is clear. As it is showing gram-negative julianna, kidneys and bladder ultrasound ordered. 2. Coronary artery status post CABG, chronic A. fib and pacemaker and chronic heart failure: Heart failure type, classification and severity unclear. Patient follows outside interventional radiology rn involvement [place]. No echo in our system. Last EKG on reported ventricular paced rhythm with occasional PVC. On furosemide 40 mg daily. On Eliquis 5 mg twice daily, baby aspirin, losartan and metoprolol succinate Home cardiac medications continued. 3. Right below amputation knee 4. Chronic pancreatitis on Creon pancreatic enzyme supplement. Continued 5. Anxiety and depression, chronic venous insufficiency, hypertension and dyslipidemia: Home medication reconciliation done. Acute encephalopathy most probably due to opioid medications. Oxycodone controlled release discontinued. 11/05: Patient is very anxious looking and restless. Acute encephalopathy resolved. Low-dose Ativan 0.5 mg 1 dose ordered. Started on Seroquel 25 mg twice daily from [email or web address]. Cautious about opioid medication and muscle relaxant. DVT prophylaxis on Eliquis 5 mg twice daily. Total time of the visit including total time spent in counseling or coordination of care, (more than 50% of the total time, spent in obtaining medical information from nurses and other ancillary care providers,explaining to the patient about labs, imaging, diagnosis and management of active complex medical conditions), clinical improvement to the patient's , discussion with the spine surgeon, pain management consult, ID consult, review of labs and imaging is 40 minutes. Living will/advanced directive/end of life care: Patient does not have living will or advanced directive. After discussion of benefits/risks procedures involved with full code, DNR CC arrest and DNR CC, the patient and his opted for DNRCC arrest with no intubation. Opted for Patient doesn't want artificial life support including intubation, tube feed, ventilator and/chest compression, central venous catheter, vasopressor and DC shock if needed M Microbiology Past 72 Hours 11/04/21 13:20 Blood Culture (Wb) - Anticubital Right Blood Culture - Preliminary 11/04/21 13:30 Blood Culture (Wb) - Left Wrist Blood Culture - Preliminary 11/04/21 16:29 Stool Stool Occult Blood (YARIEL) - Final Occult Blood Positive Laboratory Results 11/04/21 13:20: WBC 11.5 H, RBC 5.04, Hgb 14.5, Hct 43.0, MCV 85.3, MCH 28.8, MCHC 33.7, RDW Std Deviation 38.5, RDW Coeff of Esthela 12.5, Plt Count 168, MPV 10.8, Immature Gran % (Auto) 0.500, Neut % (Auto) 90.7 H, Lymph % (Auto) 2.5 L, Bergen % (Auto) 5.9, Eos % (Auto) 0.1, Baso % (Auto) 0.3, Absolute Neuts (auto) 10.4 H, Absolute Lymphs (auto) 0.29 L, Nucleated RBC % 0, Differential Comment SCANNED, Hypersegmented Neuts SCANNED, Atypical Lymphocytes SCANNED, Reactive Lymphocytes SCANNED, Toxic Granulation SCANNED, Dohle Bodies SCANNED, ESR 6 11/04/21 13:20: Sodium 138, Potassium 3.3 L, Chloride 103, Carbon Dioxide 28.0, Anion Gap 7, BUN 19 H, Creatinine 1.32 H, Estim Creat Clear Calc 45.34, Est GFR (MDRD) Af Amer 68, Est GFR (MDRD) Non-Af 56 L, BUN/Creatinine Ratio 14.4, Glucose 141 H, Calcium 8.9, Total Bilirubin 1.20 H, AST 35, ALT 31, Alkaline Phosphatase 47, Total Creatine Kinase 111, C-React Prot Ext Range 27.20 H, Total Protein 7.0, Albumin 3.8, Globulin 3.2, Albumin/Globulin Ratio 1.2 11/04/21 13:51: POC Glucose 130 H 11/05/21 07:17: WBC 13.8 H, RBC 4.81, Hgb 13.5, Hct 41.6, MCV 86.5, MCH 28.1, MCHC 32.5, RDW Std Deviation 39.8, RDW Coeff of Esthela 12.7, Plt Count 168, MPV 11.1, Immature Gran % (Auto) 0.400, Neut % (Auto) 93.8 H, Lymph % (Auto) 3.2 L, Bergen % (Auto) 2.5, Eos % (Auto) 0.0, Baso % (Auto) 0.1, Absolute Neuts (auto) 13.0 H, Absolute Lymphs (auto) 0.44 L, Nucleated RBC % 0 11/05/21 07:17: Sodium 141, Potassium 3.1 L, Chloride 106, Carbon Dioxide 24.0, Anion Gap 11, BUN 22 H, Creatinine 1.37 H, Estim Creat Clear Calc 43.69, Est GFR (MDRD) Af Amer 65, Est GFR (MDRD) Non-Af 53 L, BUN/Creatinine Ratio 16.1, Glucose 187 H, Calcium 8.9 Clinical Impression(s) from Imaging Studies Lumbar Spine X-Ray 11/03/21 17:15 IMPRESSION: Severe degenerative change of the lumbar spine without acute abnormal finding. Lumbar Spine MRI 11/04/21 10:25 IMPRESSION: 1. Limited soft tissue detail due to motion. 2. No MRI evidence of epidural abscess, discitis or vertebral body osteomyelitis. 3. Pronounced stenosis of the right L4-L5 intervertebral neural foramen, moderately pronounced stenosis of the left L4-L5 intervertebral neural foramen and grade 1 degenerative retrolisthesis of L4 on L5. 4. Grade 1 anterolisthesis of L5 on S1 may be on a degenerative basis. Bone detail is limited. I am unable to determine the presence of L5 pars defects. 5. Grade 1 right lateral degenerative subluxation of L3 on L4, old right lateral wedge compression fracture of L3 vertebral body and moderate stenosis of the right intervertebral neural foramen. 6. No MRI evidence of lumbar extruded disc fragment. Abdomen X-Ray 11/04/21 11:10 IMPRESSION: Moderate amount of fecal material is seen in the colon. Chest X-Ray 11/04/21 14:35 IMPRESSION: 1. Previous sternal thoracotomy with fractures of the third, sixth and seventh wires. 2. No cardiomegaly or heart failure. 3. Single lead pacemaker with its distal lead in the region of the interventricular septum. 4. Mild upper mediastinal widening, unchanged since the previous study of 10/25/2021 and probably is postsurgical in etiology. 5. No pulmonary infiltrates and atelectasis, effusion, pulmonary mass lesions. No pneumonia, pneumonitis or bronchitis. Charges/Coding Visit Charges Inpatient E&M: 45851 Subs Hosp L3
[2021-11-05] MEDS: Creon 24,000 unit DR Capsule 3 CAP PO (09:42)
[2021-11-05] MEDS: Aspirin E.C. 81 MG Tablet PO (09:43)
[2021-11-05] MEDS: Potassium Chloride Oral Tablet 20 MEQ PO (09:44)
[2021-11-05] MEDS: metroNIDAZOLE 500 MG/100 ML BAG 100 MG IV ×3 (09:53→23:32)
[2021-11-05 10:57] LABS: Lactic Acid 4.3 mmol/L (0.4-1.9)
[2021-11-05] MEDS: Pregabalin 75 MG Capsule 150 MG PO ×2 (11:07→23:32)
[2021-11-05] MEDS: oxyCODONE 5 MG Tablet 2.5 MG PO ×2 (11:07→17:10)
[2021-11-05] MEDS: Escitalopram Oxalate 10 MG Tablet 30 MG PO (11:10)
[2021-11-05] MEDS: Colestipol 1 GM TABLET PO (11:10)
[2021-11-05] MEDS: Lidocaine 5% Patch 1 PATCH TOPICAL (11:11)
[2021-11-05] MEDS: Magnesium Chloride 64 MG Delay Rel.Tablet 128 MG PO ×2 (11:11→23:31)
[2021-11-05] MEDS: Psyllium 1 PACKET PO (11:12)
[2021-11-05] MEDS: amLODIPine 5 MG Tablet PO (11:12)
[2021-11-05] MEDS: Cholecalciferol (VIT D3) 25 MCG TABLET (1,000 UNITS) 50 MCG PO (11:13)
[2021-11-05] MEDS: Metoprolol(XL)Succ 25 MG Tablet PO (11:13)
[2021-11-05 11:37] LABS: Differential Comment SCANNED
--- NOTE | 2021-11-05 12:26 | US_ITS ---
STUDY: RENAL ULTRASOUND - COMPLETE REASON FOR EXAM: Male, 75 years old. GNR in Blood culture,fever TECHNIQUE: Ultrasound evaluation of the kidneys was performed with real-time and static goodman-scale imaging. COMPARISON: None. FINDINGS: RIGHT KIDNEY: Normal location of the right kidney, which is normal in size. The right kidney measures 11.2 cm. There is a normal cortex of the right kidney. The renal cortex measures 1.0 cm. There is no right renal mass or cyst. There are no right renal calculi. There is no right hydronephrosis. DISTAL RIGHT URETER: There is non-visualization of the distal right ureter. There is no demonstrated right ureterovesical junction calculus. There is a visualized right ureteral jet. LEFT KIDNEY: Normal location of the left kidney, which is normal in size. The left kidney measures 12.7 cm. There is a normal cortex of the left kidney. The renal cortex measures 1.3 cm. 7 cm exophytic cyst in the midsection left kidney. Another 1.5 cm cyst in the midsection left kidney. There are no left renal calculi. There is no left hydronephrosis. DISTAL LEFT URETER: There is non-visualization of the distal left ureter. There is no demonstrated left ureterovesical junction calculus. There is a visualized left ureteral jet. BLADDER: The distended urinary bladder has a volume of 58 ml. The empty urinary bladder has a volume of ml. There is a normal wall thickness of the distended urinary bladder. There is no demonstrated mass within the urinary bladder. There are no demonstrated bladder calculi. US/Kidney and Bladder IMPRESSION: Normal ultrasound of the kidneys and urinary bladder. 7 cm cyst of the left kidney. Electronically Signed: Satinder Morin MD at 17:53 EDT ,
[2021-11-05] MEDS: LORazepam 2 MG/ML Syringe 0.5 MG IV (12:47)
[2021-11-05 12:49] LABS: Phosphorus 1.5 mg/dL (2.5-4.9)
[2021-11-05] MEDS: tiZANidine HCl 2 MG Tablet PO ×2 (13:07→23:31)
[2021-11-05 14:18] LABS: Reflex Lactate? Y
[2021-11-05 14:55] LABS: International Normalized Ratio 1.6; Prothrombin Time (Protime)PT. 18.4 SECONDS (11.7-14.9)
[2021-11-05 15:36] LABS: Lactic Acid 3.3 mmol/L (0.4-1.9)
[2021-11-05] MEDS: Lactated Ringers 1,000 ML 125 ML IV (17:11)
[2021-11-05] MEDS: HYDROmorphone 0.5 MG/0.5 ML SYRINGE IV (20:48)
[2021-11-05] MEDS: QUEtiapine 25 MG Tablet PO (23:31)
[2021-11-06] MEDS: Metoclopramide 10 MG/2 ML Vial 5 MG IV (00:21)
[2021-11-06] MEDS: 0.9% Saline Lock 10 ML Syringe IV (00:21)
[2021-11-06 03:39] VITALS: BP 139/77; PULSE 70; RESP 18; TEMP 36.6; O2SAT 94
[2021-11-06] MEDS: oxyCODONE 5 MG Tablet 2.5 MG PO ×2 (03:43→21:08)
[2021-11-06] MEDS: Lactated Ringers 1,000 ML 125 ML IV (03:48)
[2021-11-06] MEDS: tiZANidine HCl 2 MG Tablet PO ×3 (06:30→21:03)
[2021-11-06] MEDS: Levothyroxine 88 MCG Tablet PO (06:30)
[2021-11-06] MEDS: metroNIDAZOLE 500 MG/100 ML BAG 100 MG IV (06:32)
--- NOTE | 2021-11-06 08:05 | PN.HOSP_ITS ---
Subjective Subjective Follow-up for acute on chronic back pain, and bacteremia Objective Data Objective Data Vital Signs: Vital Signs Temp Pulse Resp BP Pulse Ox O2 Del Method O2 Flow Rate 97.8 F 70 18 139/77 H 94 Room Air 2 11/06/21 03:39 11/06/21 03:39 11/06/21 03:39 11/06/21 03:39 11/06/21 03:39 11/06/21 03:39 11/05/21 15:00 Oxygen Flow Rate (L/min) 2 Oxygen Delivery Method Room Air Weight: 178 lb 9.191 oz Body Mass Index (BMI) 27.5 Intake & Output: Intake and Output for Last 24 Hours 11/04/21 11/05/21 11/06/21 23:59 23:59 23:59 Intake Total 1060 / 1060 3670.42 / 3670.42 633.33 / 633.33 Output Total 1300 / 1800 1000 / 1000 Balance 1060 / 1060 2370.42 / 1870.42 -366.67 / -366.67 Lab / Micro Data Result Diagrams: 11/06/21 08:38 11/06/21 08:38 Labs: Laboratory Results - last 24 hr 11/05/21 07:17: WBC 13.8 H, RBC 4.81, Hgb 13.5, Hct 41.6, MCV 86.5, MCH 28.1, MCHC 32.5, RDW Std Deviation 39.8, RDW Coeff of Esthela 12.7, Plt Count 168, MPV 11.1, Immature Gran % (Auto) 0.400, Neut % (Auto) 93.8 H, Lymph % (Auto) 3.2 L, [place] % (Auto) 2.5, Eos % (Auto) 0.0, Baso % (Auto) 0.1, Absolute Neuts (auto) 13.0 H, Absolute Lymphs (auto) 0.44 L, Nucleated RBC % 0, Differential Comment SCANNED 11/05/21 07:17: Sodium 141, Potassium 3.1 L, Chloride 106, Carbon Dioxide 24.0, Anion Gap 11, BUN 22 H, Creatinine 1.37 H, Estim Creat Clear Calc 43.69, Est GFR (MDRD) Af Amer 65, Est GFR (MDRD) Non-Af 53 L, BUN/Creatinine Ratio 16.1, Glucose 187 H, Calcium 8.9 11/05/21 07:17: Phosphorus 1.5 L 11/05/21 10:10: Lactic Acid 4.3 H* 11/05/21 14:33: PT 18.4 H, INR 1.6 11/05/21 14:33: Lactic Acid 3.3 H* Micro: Microbiology 11/04/21 13:20 Blood Culture (Wb) - Anticubital Right Blood Culture - Preliminary 11/04/21 13:30 Blood Culture (Wb) - Left Wrist Blood Culture - Preliminary 11/04/21 16:29 Stool Stool Occult Blood (YARIEL) - Final Occult Blood Positive Radiography Diagnostic Testing: Radiology Impression Renal Ultrasound 11/05/21 12:26 IMPRESSION: Normal ultrasound of the kidneys and urinary bladder. 7 cm cyst of the left kidney. Electronically Signed: Satinder Morin MD at 17:53 EDT Reading Location ID and State: [facility] / [place] Tel , Service support , Physical Exam Narrative .Seen and examined. Patient responded well with Seroquel feeling more relaxed. Back pain 6-7/10 intensity. No fevers for more than 36 hours. Heart rate and blood pressure c ontrolled. Patient had bowel movement daily on 11/05. Voiding urine spontaneously. General: Awake, alert and oriented x3. HEENT: Atraumatic, PERRLA, EOMI, Normocephalic Oral: No Gingival or Mucosal Lesions/ Ulcerations Neck: Supple, No JVD, Negative Carotid Bruits Lungs: Air entry equal in bilateral lung bases. No crepitation/rhonchi Cardiovascular: Regular rhythm, Normal S1, Normal S2, systolic murmur LLSB. CABG scar. Left sided pacemaker Abdomen: Bowel Sounds sluggish, soft, nontender nondistended. : No renal angle tenderness. No suprapubic tenderness. Extremities: No edema, Capillary Refill Less than 3 Seconds Skin: No rashes, No breakdown Musculoskeletal: Surgical scar on lumbar spine.Tenderness and stiffness of paravertebral spinal muscles better.. Cannot sit up with some discomfort. Right below-knee amputation Neurological: Cranial nerves II-XII grossly intact, DTR 2+/4. Psych/Mental Status: Flat affect, anxious looking Assessment & Plan Assessment/Plan (1) Acute exacerbation of chronic low back pain: PLAN: This 75-year-old [id number] with history of chronic back pain status post 3 lumbar surgeries admitted with acute exacerbation of back pain and spasm. Inability to stand up or move. 1. Acute exacerbation of chronic lumbar back pain due to lumbar disc degenerative disorder, arthritis and fusion: Patient is being admitted on [facility] floor. Pain medication and antispasmodic medication. PT and OT ordered. Patient's does not want to go to senior living. Patient was given morphine 4 mg, Dilaudid 2 mg and Valium 5 mg but still did not had much relief. Patient follows pain management Dr. Santana. On home medication patient on hydromorphone 2 mg twice daily as needed along with hydrocodone 30 mg oral daily. 11/03: Patient is still in moderate to severe pain and requiring Dilaudid on top of lidocaine patch. Oxycodone CR 10 mg twice daily added. Patient on laxative regimen MiraLAX, Metamucil and senna S. LS x-ray ordered 11/04: Fever T-max 101.8 Fahrenheit. Patient is still complaining of severe back pain although is more confused and lethargic. Lumbar spine x-ray shows degenerative changes but no acute changes. MRI with and without contrast is ordered. Discussed with the spine surgeon Dr. Lord, ESR CRP ordered. Voice message left for Dr. Valdovinos to call back and requested pain management consult. Plan discussed with patient's near the bedside. Abdominal x-ray shows moderate amount of fecal matter in colon but no air-fluid level. Patient on c lear liquid when awake. 11/05: Tenderness, stiffness/spasm better. Patient still not able to sit upright for long time or without pain. PT and OT working. 11/06: PT and OT continue. Pain and spasm and tenderness improving. GNR Bacteremia, source unclear: Prelim gram stain of blood cultures x2 bottles from 11/04 shows both bottles GNR. Patient was seen and evaluated by Dr. Lord on 11/04 and I agree with MRI report. Does not have infectious source in the spine with no features of discitis abscess or osteomyelitis. Chest x-ray imaging reviewed does not show acute infiltrate consultation or atelectasis. Continue incentive spirometry. Patient has good bowel sounds with no tenderness, diarrhea. Clear liquid as per tolerated allowed. ESR normal but CRP elevated. Patient has leukocytosis even before starting dexamethasone yesterday. Today is 13.8 K with left shift. UA is negative with WBC 0 RBC 0. Patient is started empirically on IV antibiotics cefepime on 11/04 and added Flagyl on 11/05. Infectious disease events solutions consultant Dr. Veliz called and discussed. He thinks patient is on appropriate antibiotic regimen and if he remains febrile can discontinue Flagyl tomorrow. Urine is clear. As it is showing gram-negative julianna, kidneys and bladder ultrasound ordered. 11/06: Kidneys and bladder ultrasound normal. Urine culture no growth. Gram- negative rods in both bottles. Flagyl discontinued. Discontinue IV fluid. Advance diet. Hypophosphatemia prospect is getting replaced. 2. Coronary artery status post CABG, chronic A. fib and pacemaker and chronic heart failure: Heart failure type, classification and severity unclear. 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 No echo in our system. Last EKG on reported ventricular paced rhythm with occasional PVC. On furosemide 40 mg daily. On Eliquis 5 mg twice daily, baby aspirin, losartan and metoprolol succinate Home cardiac medications continued. 3. Right below amputation knee 4. Chronic pancreatitis on Creon pancreatic enzyme supplement. Continued 5. Anxiety and depression, chronic venous insufficiency, hypertension and dyslipidemia: Home medication reconciliation done. Acute encephalopathy most probably due to opioid medications. Oxycodone controlled release discontinued. 11/05: Patient is very anxious looking and restless. Acute encephalopathy resolved. Low-dose Ativan 0.5 mg 1 dose ordered. [facility] Cautious about opioid medication and muscle relaxant. DVT prophylaxis on Eliquis 5 mg twice daily. Total time of the visit including total time spent in counseling or coordination of care, (more than 50% of the total time, spent in obtaining medical information from nurses and other ancillary care providers,explaining to the patient about labs, imaging, diagnosis and management of active complex medical conditions), clinical improvement to the patient's , discussion with the spine surgeon, pain management consult, ID consult, review of labs and imaging is 22 minutes. Living will/advanced directive/end of life care: Patient does not have living will or advanced directive. After discussion of benefits/risks procedures involved with full code, DNR CC arrest and DNR CC, the patient and his opted for DNRCC arrest with no intubation. Opted for Patient doesn't want artificial life support including intubation, tube feed, ventilator and/chest compression, central venous catheter, vasopressor and DC shock if needed Microbiology Past 72 Hours 11/04/21 13:30 Blood Culture (Wb) - Left Wrist Blood Culture - Preliminary GNR lactose residence supervisor 11/04/21 13:20 Blood Culture (Wb) - Anticubital Right Blood Culture - Preliminary GNR lactose residence supervisor 11/05/21 04:15 Urine, Clean Catch Urine Culture - Preliminary Culture exhibits no growth. 11/04/21 16:29 Stool Stool Occult Blood (YARIEL) - Final Occult Blood Positive Laboratory Results 11/05/21 07:17: Differential Comment SCANNED 11/05/21 07:17: Phosphorus 1.5 L 11/05/21 10:10: Lactic Acid 4.3 H* 11/05/21 14:33: PT 18.4 H, INR 1.6 11/05/21 14:33: Lactic Acid 3.3 H* 11/06/21 08:38: WBC 10.8, RBC 3.99 L, Hgb 11.4 L, Hct 34.2 L, MCV 85.7, MCH 2 8.6, MCHC 33.3, RDW Std Deviation 40.6, RDW Coeff of Esthela 13.0, Plt Count 155, MPV 10.7, Immature Gran % (Auto) 1.200 H, Neut % (Auto) 91.7 H, Lymph % (Auto) 3.4 L, [place] % (Auto) 3.7, Eos % (Auto) 0.0, Baso % (Auto) 0.0, Absolute Neuts (auto) 9.9 H, Absolute Lymphs (auto) 0.37 L, Nucleated RBC % 0, Differential Comment SCANNED 11/06/21 08:38: Sodium 140, Potassium 3.9, Chloride 108 H, Carbon Dioxide 24.0, Anion Gap 8, BUN 16, Creatinine 1.09, Estim Creat Clear Calc 54.91, Est GFR (MDRD) Af Amer 84, Est GFR (MDRD) Non-Af 70, BUN/Creatinine Ratio 14.7, Glucose 208 H, Calcium 8.6, Phosphorus 1.6 L, Magnesium 2.2 Clinical Impression(s) from Imaging Studies Lumbar Spine X-Ray 11/03/21 17:15 IMPRESSION: Severe degenerative change of the lumbar spine without acute abnormal finding. Lumbar Spine MRI 11/04/21 10:25 IMPRESSION: 1. Limited soft tissue detail due to motion. 2. No MRI evidence of epidural abscess, discitis or vertebral body osteomyelitis. 3. Pronounced stenosis of the right L4-L5 intervertebral neural foramen, moderately pronounced stenosis of the left L4-L5 intervertebral neural foramen and grade 1 degenerative retrolisthesis of L4 on L5. 4. Grade 1 anterolisthesis of L5 on S1 may be on a degenerative basis. Bone detail is limited. I am unable to determine the presence of L5 pars defects. 5. Grade 1 right lateral degenerative subluxation of L3 on L4, old right lateral wedge compression fracture of L3 vertebral body and moderate stenosis of the right intervertebral neural foramen. 6. No MRI evidence of lumbar extruded disc fragment. Abdomen X-Ray 11/04/21 11:10 IMPRESSION: Moderate amount of fecal material is seen in the colon. Chest X-Ray 11/04/21 14:35 IMPRESSION: 1. Previous sternal thoracotomy with fractures of the third, sixth and seventh wires. 2. No cardiomegaly or heart failure. 3. Single lead pacemaker with its distal lead in the region of the interventricular septum. 4. Mild upper mediastinal widening, unchanged since the previous study of 10/25/2021 and probably is postsurgical in etiology. 5. No pulmonary infiltrates and atelectasis, effusion, pulmonary mass lesions. No pneumonia, pneumonitis or bronchitis. Charges/Coding Visit Charges Inpatient E&M: 99458 Subs Hosp L2
[2021-11-06 08:51] LABS: Absolute Lymphocyte Count 0.37 X10^3/uL (0.83-4.51); Absolute Neutrophil Count 9.9 X10^3/uL (2.0-7.7); Hematocrit 34.2 % (40-54); Hemoglobin 11.4 g/dL (13.0-16.5); Lymphocyte # 0.37 X10^3/ul (0.83-4.51); Lymphocyte % 3.4 % (19-41); Mean Corp Hgb Conc 33.3 g/dL (32-36); Mean Corpuscular Hgb 28.6 pg (27.0-32.0); Mean Corpuscular Volume 85.7 fL (80-94); Mean Platelet Vol. 10.7 fl (6.2-12.0); Monocyte% 3.7 % (0-10); NRBC Flagged by Analyzer 0 % (0-5); Neutrophil # 9.85 X10^3/uL (2.7-7.7); Neutrophil % 91.7 % (47-70); POSITIVE DIFFERENTIAL YES; Platelet Count 155 K/mm3 (150-450); RBC Distribution Width SD 40.6 fl (35.1-43.9); Red Blood Count 3.99 M/mm3 (4.6-6.2); White Blood Count 10.8 K/mm3 (4.4-11.0)
[2021-11-06 09:18] LABS: Anion Gap 8 (5-15); BUN 16 mg/dL (7-18); BUN/Creat Ratio 14.7 RATIO (10-20); Calcium,Total 8.6 mg/dL (8.5-10.1); Chloride 108 mmol/L (98-107); Creatinine, Serum 1.09 mg/dL (0.70-1.30); EST Glomerular Filtration Rate 70 mL/min (>60); Est Glom Filt Rate - Afr Amer 84 mL/min (>60); Estimated Creatinine Clearance 54.91 ml/min; Glucose 208 mg/dL (74-106); Magnesium 2.2 mg/dL (1.6-2.6); Phosphorus 1.6 mg/dL (2.5-4.9); Potassium 3.9 mmol/L (3.5-5.1); Sodium Level 140 mmol/L (136-145)
[2021-11-06 09:21] VITALS: BP 127/84; PULSE 60; RESP 18; TEMP 36.5; O2SAT 95
[2021-11-06] MEDS: Senna/Docusate Sodium 1 Tablet 2 TABLET PO ×2 (09:23→21:05)
[2021-11-06] MEDS: Magnesium Chloride 64 MG Delay Rel.Tablet 128 MG PO ×2 (09:23→21:04)
[2021-11-06] MEDS: Colestipol 1 GM TABLET PO ×2 (09:24→21:10)
[2021-11-06] MEDS: Creon 24,000 unit DR Capsule 3 CAP PO ×3 (09:24→16:49)
[2021-11-06] MEDS: amLODIPine 5 MG Tablet PO (09:25)
[2021-11-06] MEDS: Cholecalciferol (VIT D3) 25 MCG TABLET (1,000 UNITS) 50 MCG PO (09:25)
[2021-11-06] MEDS: Donepezil HCl 10 MG Tablet PO (09:25)
[2021-11-06] MEDS: Escitalopram Oxalate 10 MG Tablet 30 MG PO (09:25)
[2021-11-06] MEDS: Losartan Potassium 100 MG Tablet PO (09:25)
[2021-11-06 09:36] LABS: Differential Indicated SCAN CRITERIA MET
[2021-11-06 10:03] LABS: Differential Comment SCANNED
[2021-11-06] MEDS: Pregabalin 75 MG Capsule 150 MG PO ×2 (10:31→21:03)
[2021-11-06] MEDS: Potassium Chloride Oral Tablet 20 MEQ 40 MEQ PO (10:32)
[2021-11-06] MEDS: dexAMETHasone 4 MG/ML Vial IV ×2 (10:32→21:03)
[2021-11-06] MEDS: Aspirin E.C. 81 MG Tablet PO (10:32)
[2021-11-06] MEDS: Lidocaine 5% Patch 1 PATCH TOPICAL (10:33)
[2021-11-06 10:34] VITALS: PULSE 60
[2021-11-06] MEDS: QUEtiapine 25 MG Tablet PO ×2 (10:34→21:06)
[2021-11-06] MEDS: Fenofibrate 145 MG Tablet PO (10:35)
[2021-11-06] MEDS: Loperamide 2 MG Capsule 4 MG PO (12:32)
[2021-11-06] MEDS: HYDROmorphone 0.5 MG/0.5 ML SYRINGE IV (12:47)
[2021-11-06 14:27] VITALS: BP 126/79; PULSE 64; RESP 18; TEMP 36.6; O2SAT 95
[2021-11-06] MEDS: Acetaminophen 325 MG Tablet 650 MG PO (18:50)
[2021-11-06 20:29] VITALS: BP 140/94; PULSE 90; RESP 18; TEMP 36.7; O2SAT 95
[2021-11-06] MEDS: MELATONIN 3 MG TABLET PO (21:03)
[2021-11-07] MEDS: HYDROmorphone 0.5 MG/0.5 ML SYRINGE IV ×2 (03:10→11:43)
[2021-11-07 03:19] VITALS: BP 142/99; PULSE 73; RESP 18; TEMP 36.8; O2SAT 95
[2021-11-07] MEDS: oxyCODONE 5 MG Tablet 2.5 MG PO ×3 (05:33→22:15)
[2021-11-07] MEDS: tiZANidine HCl 2 MG Tablet PO ×3 (05:34→22:15)
[2021-11-07] MEDS: Levothyroxine 88 MCG Tablet PO (05:34)
[2021-11-07 05:51] LABS: Absolute Neutrophil Count 7.4 X10^3/uL (2.0-7.7); Hematocrit 34.9 % (40-54); Hemoglobin 11.9 g/dL (13.0-16.5); Lymphocyte % 4.8 % (19-41); Mean Corp Hgb Conc 34.1 g/dL (32-36); Mean Corpuscular Hgb 28.5 pg (27.0-32.0); Mean Corpuscular Volume 83.5 fL (80-94); Mean Platelet Vol. 10.8 fl (6.2-12.0); Monocyte# 0.41 X10^3/uL; NRBC Flagged by Analyzer 0 % (0-5); Neutrophil # 7.41 X10^3/uL (2.7-7.7); Neutrophil % 89.5 % (47-70); POSITIVE DIFFERENTIAL YES; Platelet Count 161 K/mm3 (150-450); RBC Distribution Width CV 13.1 % (11.6-14.6); RBC Distribution Width SD 40.2 fl (35.1-43.9); Red Blood Count 4.18 M/mm3 (4.6-6.2); White Blood Count 8.3 K/mm3 (4.4-11.0)
[2021-11-07 05:54] LABS: Differential Indicated SCAN CRITERIA MET
[2021-11-07 06:13] LABS: Anion Gap 7 (5-15); BUN 20 mg/dL (7-18); BUN/Creat Ratio 24.2 RATIO (10-20); Calcium,Total 8.3 mg/dL (8.5-10.1); Chloride 108 mmol/L (98-107); Creatinine, Serum 0.83 mg/dL (0.70-1.30); EST Glomerular Filtration Rate 96 mL/min (>60); Est Glom Filt Rate - Afr Amer 116 mL/min (>60); Estimated Creatinine Clearance 72.11 ml/min; Glucose 136 mg/dL (74-106); Potassium 3.7 mmol/L (3.5-5.1); Sodium Level 140 mmol/L (136-145)
[2021-11-07 06:17] LABS: Phosphorus 2.4 mg/dL (2.5-4.9)
[2021-11-07] MEDS: Aspirin E.C. 81 MG Tablet PO (07:54)
[2021-11-07] MEDS: Senna/Docusate Sodium 1 Tablet 2 TABLET PO ×2 (07:54→22:14)
[2021-11-07] MEDS: Colestipol 1 GM TABLET PO ×2 (07:54→22:13)
[2021-11-07] MEDS: Escitalopram Oxalate 10 MG Tablet 30 MG PO (07:55)
[2021-11-07] MEDS: Magnesium Chloride 64 MG Delay Rel.Tablet 128 MG PO ×2 (07:55→22:14)
[2021-11-07] MEDS: Creon 24,000 unit DR Capsule 3 CAP PO ×3 (07:56→16:43)
[2021-11-07] MEDS: QUEtiapine 25 MG Tablet PO ×2 (07:56→22:15)
[2021-11-07] MEDS: Losartan Potassium 100 MG Tablet PO (07:57)
[2021-11-07] MEDS: Polyethylene Glycol 3350 17 GM PACKET PO (07:57)
[2021-11-07] MEDS: Donepezil HCl 10 MG Tablet PO (07:57)
[2021-11-07] MEDS: Cholecalciferol (VIT D3) 25 MCG TABLET (1,000 UNITS) 50 MCG PO (07:57)
[2021-11-07] MEDS: Psyllium 1 PACKET PO (07:58)
[2021-11-07 07:59] VITALS: PULSE 60
[2021-11-07] MEDS: Fenofibrate 145 MG Tablet PO (07:59)
[2021-11-07] MEDS: dexAMETHasone 4 MG/ML Vial IV ×2 (07:59→22:13)
[2021-11-07] MEDS: Metoprolol(XL)Succ 25 MG Tablet PO (07:59)
[2021-11-07] MEDS: amLODIPine 5 MG Tablet PO (08:01)
[2021-11-07] MEDS: Pregabalin 75 MG Capsule 150 MG PO ×2 (08:11→22:13)
[2021-11-07] MEDS: Lidocaine 5% Patch 1 PATCH TOPICAL (08:11)
[2021-11-07 08:27] VITALS: BP 138/89; PULSE 62; RESP 16; TEMP 36.7; O2SAT 96
--- NOTE | 2021-11-07 10:13 | PN.HOSP_ITS ---
Subjective Subjective Follow-up on acute on chronic back pain/bacteremia: Patient was seen and examined. He complains of feeling unwell. No more diarrhea today. Denies any chills, dizziness or chest pain. No acute events overnight. 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 He had an ultrasound of the right upper quadrant on 10/25/21 that did not show dilatation of the biliary tract. Objective Data Objective Data Vital Signs: Vital Signs Temp Pulse Resp BP Pulse Ox O2 Del Method O2 Flow Rate 98.0 F 62 16 138/89 H 96 Room Air 2 11/07/21 08:27 11/07/21 08:11/07/21 08:11/07/21 08:11/07/21 08:11/07/21 08:11/05/21 15:00 Oxygen Flow Rate (L/min) 2 Oxygen Delivery Method Room Air Weight: 79.4 kg Body Mass Index (BMI) 27.5 Intake & Output: Intake and Output for Last 24 Hours 11/05/21 11/06/21 11/07/21 23:59 23:59 23:59 Intake Total 3670.42 / 3670.42 3293.33 / 3293.33 280 / 280 Output Total 1300 / 1800 3150 / 3150 1825 / 1825 Balance 2370.42 / 1870.42 143.33 / 143.33 -1545 / -1545 Lab / Micro Data Result Diagrams: 11/07/21 04:10 11/07/21 04:10 Labs: Laboratory Results - last 24 hr 11/07/21 04:10: WBC 8.3, RBC 4.18 L, Hgb 11.9 L, Hct 34.9 L, MCV 83.5, MCH 28.5, MCHC 34.1, RDW Std Deviation 40.2, RDW Coeff of Esthela 13.1, Plt Count 161, MPV 10.8, Immature Gran % (Auto) 0.700, Neut % (Auto) 89.5 H, Lymph % (Auto) 4.8 L, [place] % (Auto) 5.0, Eos % (Auto) 0.0, Baso % (Auto) 0.0, Absolute Neuts (auto) 7.4, Absolute Lymphs (auto) 0.40 L, Nucleated RBC % 0 11/07/21 04:10: Sodium 140, Potassium 3.7, Chloride 108 H, Carbon Dioxide 25.0, Anion Gap 7, BUN 20 H, Creatinine 0.83, Estim Creat Clear Calc 72.11, Est GFR (MDRD) Af Amer 116, Est GFR (MDRD) Non-Af 96, BUN/Creatinine Ratio 24.2 H, Glucose 136 H, Calcium 8.3 L 11/07/21 04:10: Phosphorus 2.4 L Micro: Microbiology 11/05/21 04:15 Urine, Clean Catch Urine Culture - Final Culture exhibits no growth. 11/04/21 13:30 Blood Culture (Wb) - Left Wrist Blood Culture - Final GNR lactose latin american studies professor 11/04/21 13:20 Blood Culture (Wb) - Anticubital Right Blood Culture - Final Klebsiella oxytoca 11/04/21 16:29 Stool Stool Occult Blood (YARIEL) - Final Occult Blood Positive Physical Exam Narrative Physical exam: General: Alert, Oriented x3, Cooperative, well HEENT: Atraumatic Oral: Moist Mucosa Neck: Supple Lungs: Clear to auscultation Cardiovascular: HS I+II, regular, no murmurs Abdomen: Bowel Sounds Present, Soft, slight tenderness over the right upper quadrant Extremities: No edema on left leg, Right BKA Skin: No rashes, No breakdown Neurological: Grossly intact Psych/Mental Status: Appropriate Assessment & Plan Assessment/Plan (1) Acute exacerbation of chronic low back pain: PLAN: 1. Acute Klebsiella oxytoca bacteremia, unclear etiology, almost pansensitive Renal ultrasound is unremarkable Continue on IV cefepime 2. Acute on chronic lumbar back pain secondary to degenerative joint disease Patient's pain is fairly uncontrolled. Continue on Dilaudid as needed, dexamethasone, lidocaine patch, Tylenol, oxycodone, tizanidine, Lyrica PT to evaluate and treat 3. Hypertension, fairly controlled, Continue amlodipine, metoprolol, losartan, hydralazine as needed 4. CAD status post CABG/chronic atrial fibrillation/status post pacemak er/chronic heart failure preserved EF Continue on metoprolol, apixaban, losartan, aspirin 5. Chronic pancreatitis, continue Creon and colestipol 6. Anxiety/depression, continue on Seroquel, Lexapro Will check EKG for QTC prolongation 7. DVT prophylaxis?on apixaban Charges/Coding Visit Charges Inpatient E&M: 43784 Subs Hosp L2
[2021-11-07] MEDS: APIXABAN 5 MG TABLET PO ×2 (11:33→22:13)
[2021-11-07] MEDS: Lactated Ringers 1,000 ML 100 ML IV (11:33)
--- NOTE | 2021-11-07 13:10 | EKG12_ITS ---
Test Reason : REPEAT Blood Pressure : / mmHG Vent. Rate : 061 BPM Atrial Rate : 086 BPM P-R Int : 000 ms QRS Dur : 092 ms QT Int : 472 ms P-R-T Axes : 000 023 -33 degrees QTc Int : 475 ms Atrial fibrillation with occasional ventricular-paced complexes Nonspecific T wave abnormality Prolonged QT Abnormal ECG When compared with ECG of 25-OCT-2021 14:11, Premature ventricular complexes are no longer Present Confirmed by CAREY ANGELO, BAN ([id number]), food expeditor WADE CAMPOS ([id number]) on 11/09/2021 2:07:18 PM Referred By: NAJMA Confirmed By:BAN PATINO MD
[2021-11-07 14:30] VITALS: BP 122/64; PULSE 78; RESP 16; TEMP 36.6; O2SAT 96
--- NOTE | 2021-11-07 15:15 | CON.PCM.ID_ITS ---
Assessment & Plan Assessment/Plan (1) Bacteremia due to Gram-negative bacteria: PLAN: Klebs bacteremia. Unclear source. UA with 0 wbc. Was having some dysuria prior to admit. Will check CT abd/pelvis to further eval for possible GI/ source. Cont cefepime for now. Will follow, thank you HPI Consult Data Date of Consult: 11/07/21 HPI Narrative Reason for Consultation: bacteremia HPI Narrative: SHIKHA PHILIP, is a 75 M who presented 11/02 with sudden onset worsened back pain, inability to get up. Has chronic pain at baseline. Prior to this, had 3 days n/v. No sick contacts, no recent travel. Some dysuria and blood in urine. No diarrhea. Came to ED, admitted. On 11/05, bcx showed GNR, started on cefepime/flagyl. Feeling a little better. Full ROS performed and neg except as noted above. [facility] Medical History Anxiety and depression Atrial fibrillation Chronic back pain Congestive heart failure GERD (gastroesophageal reflux disease) Heart disease Hemorrhoid HTN (hypertension) Osteoarthritis Pancreatitis Sleep apnea Venous (peripheral) insufficiency Home Medications apixaban 5 mg tablet (Eliquis) 5 mg PO BID 11/29/17 [History Last Taken 11/01/21] aspirin 81 mg tablet,delayed release (Adult Aspirin Regimen) 81 mg PO DAILY 11/29/17 [History Last Taken 11/01/21] colesevelam 625 mg tablet (WelChol) 1,875 mg PO BID 11/29/17 [History Last Taken 11/01/21] furosemide 40 mg tablet 60 mg PO BID 11/29/17 [History Last Taken 11/01/21] metoprolol succinate 25 mg tablet,extended release 24 hr 37.5 mg PO DAILY 11/29/17 [History Last Taken 11/01/21] nitroglycerin 0.4 mg sublingual tablet (Nitrostat) 0.4 mg sublingual Q5-15M PRN Chest Pain 11/29/17 [History Last Taken Unknown] donepezil 10 mg tablet 10 mg PO DAILY 10/25/21 [History Last Taken 11/01/21] famotidine 20 mg tablet 20 mg PO BID 10/25/21 [History Last Taken 11/01/21] hydromorphone 2 mg tablet 2 mg PO BID PRN Breakthrough Pain 10/25/21 [History Last Taken 11/01/21] promethazine 25 mg tablet 25 mg PO TID PRN nausea and vomiting #14 tabs 10/25/21 [Rx Last Taken Unknown] Lactobacillus acidophilus (Acidophilus capsule) 1 cap PO TID immune health 11/02/21 [History Last Taken 11/01/21] amlodipine 5 mg tablet 5 mg PO DAILY bp 11/02/21 [History Last Taken 11/01/21] cholecalciferol (vitamin D3) 25 mcg (1,000 unit) capsule 25 mcg PO TID supplement 11/02/21 [History Last Taken 11/01/21] escitalopram oxalate 10 mg tablet (Lexapro) 30 mg PO DAILY 11/02/21 [History Last Taken 11/01/21] fenofibrate nanocrystallized 145 mg tablet 145 mg PO DAILY cholesterol 11/02/21 [History Last Taken 11/01/21] hydrocodone bitartrate 30 mg tablet,crush resist,extended rel. 24hr (Hysingla ER) 30 mg PO DAILY pain 11/02/21 [History Last Taken 11/01/21] levothyroxine 88 mcg tablet 88 mcg PO DAILY thyroid 11/02/21 [History Last Taken 11/01/21] dosxrl-rpudqsjm-xuqmuqi 36,000-114,000-180,000 unit capsule,delay rel (Creon) 2 cap PO TIDCM 11/02/21 [History Last Taken 11/01/21] losartan 100 mg tablet 100 mg PO DAILY bp 11/02/21 [History Last Taken 11/01/21] magnesium oxide 500 mg tablet 500 mg PO BID supplement 11/02/21 [History Last Taken 11/01/21] methylprednisolone 4 mg tablets in a dose pack See Rx Instructions .Route .COMPLEX 11/02/21 [History Last Taken Unknown] potassium chloride 20 mEq tablet,extended release(part/cryst) 20 meq PO DAILY supplement 11/02/21 [History Last Taken 11/01/21] pregabalin 150 mg capsule (Lyrica) 150 mg PO BID pain 11/02/21 [History Last Taken 11/01/21] Allergy/AdvReac Type Severity Reaction Status Date / Time gabapentin Allergy Unknown Unknown Verified 10/25/21 12:55 meperidine [From Demerol] AdvReac Intermediate mental Verified 10/25/21 12:55 status change Bvdvhod-WDZ-QfN Reductase AdvReac Intermediate Unknown Verified 10/25/21 12:55 Inhibitor [Wehsibj-Zka-Viq Reductase Inhibitor] Penicillins AdvReac Mild passed out Verified 10/25/21 12:55 zolpidem [From Ambien] AdvReac Mild mental Verified 10/25/21 12:55 status change topiramate AdvReac Other Verified 10/25/21 12:55 Family History Sister Diabetes Asthma Thyroid disorder Mother CVA (cerebral vascular accident) Brother CVA (cerebral vascular accident) Hypertension Heart disease Surgical History History of appendectomy History of back surgery History of cataract surgery History of cholecystectomy History of elbow surgery History of ERCP History of heart bypass surgery History of hernia repair History of hip replacement, total History of prostatectomy History of right below knee amputation Social History Smoking Status: Former smoker Physical Exam Const alert, oriented x3 and no apparent distress General Appearance: cooperative HEENT normocephalic and head/scalp atraumatic Eyes PERRL and EOMs intact bilaterally Neck supple and No nodes Resp normal air movement and clear to auscultation bilaterally Cardio regular rate and regular rhythm GI soft to palpation, non-tender and non-distended Extremity General Extremity: Negative for edema Skin no rashes or lesions noted Neuro CN's II-XII intact bilaterally Lab / Micro Data Attestation: I reviewed the patient's lab results. Result Diagrams: 11/07/21 04:10 11/07/21 04:10 Labs: Laboratory Results - last 24 hr 11/07/21 04:10: WBC 8.3, RBC 4.18 L, Hgb 11.9 L, Hct 34.9 L, MCV 83.5, MCH 28.5, MCHC 34.1, RDW Std Deviation 40.2, RDW Coeff of Esthela 13.1, Plt Count 161, MPV 10.8, Immature Gran % (Auto) 0.700, Neut % (Auto) 89.5 H, Lymph % (Auto) 4.8 L, [place] % (Auto) 5.0, Eos % (Auto) 0.0, Baso % (Auto) 0.0, Absolute Neuts (auto) 7.4, Absolute Lymphs (auto) 0.40 L, Nucleated RBC % 0 11/07/21 04:10: Sodium 140, Potassium 3.7, Chloride 108 H, Carbon Dioxide 25.0, Anion Gap 7, BUN 20 H, Creatinine 0.83, Estim Creat Clear Calc 72.11, Est GFR (MDRD) Af Amer 116, Est GFR (MDRD) Non-Af 96, BUN/Creatinine Ratio 24.2 H, Glucose 136 H, Calcium 8.3 L 11/07/21 04:10: Phosphorus 2.4 L Micro: Microbiology 11/05/21 04:15 Urine, Clean Catch Urine Culture - Final Culture exhibits no growth. 11/04/21 13:30 Blood Culture (Wb) - Left Wrist Blood Culture - Final GNR lactose industrial psychologist 11/04/21 13:20 Blood Culture (Wb) - Anticubital Right Blood Culture - Final Klebsiella oxytoca
--- NOTE | 2021-11-07 17:25 | CT_ITS ---
STUDY: CT Abdomen And Pelvis W/ Contrast Injection 11/07/2021 6:00 PM REASON FOR EXAM: Male, 75 years old. ABDOMINAL PAIN bacteremia TECHNIQUE: Transaxial images were obtained with oral contrast, and Oral and amp; IV Gastrografin and amp; 100mL Isovue-300 intravenous contrast. Individualized dose optimization techniques were used for this CT. COMPARISON: None. FINDINGS: The visualized lung bases are unremarkable. The visualized portions of the heart are within normal limits. Pneumobilia. Benign-appearing hypodensities in the liver. There are surgical clips in the gallbladder fossa consistent with a prior cholecystectomy. Unremarkable spleen. Unremarkable pancreas. Unremarkable bilateral adrenal glands. There are hypodensities in the right kidney. These are consistent for cysts. No follow up required. There are hypodensities in the left kidney. These are consistent for cysts. No follow up required. There is a small hiatal hernia. Unremarkable small intestine. There are multiple colonic diverticula consistent with diverticulosis. There is non-visualization of the appendix. There are calcifications of the abdominal aorta. This is consistent for atherosclerotic disease. There is 30mm abdominal aortic aneurysm. Unremarkable inferior vena cava. Subcentimeter mesenteric lymph nodes. The urinary bladder is distended. This can suggest urinary retention. There is enlargement of the prostate gland. Unremarkable abdominal wall. Unremarkable osseous structures. CT/Abdomen/Pelvis WITH Contrast IMPRESSION: (NOT LISTED IN ORDER OF SIGNIFICANCE) There are multiple colonic diverticula consistent with diverticulosis. 30mm abdominal aortic aneurysm. The urinary bladder is distended. This can suggest urinary retention. Other findings as above. Electronically Signed: Osito Barrios MD at 18:17 EDT ,
[2021-11-07] MEDS: MELATONIN 3 MG TABLET PO (22:14)
[2021-11-07] MEDS: 0.9% Saline Lock 10 ML Syringe IV ×2 (22:15→22:32)
[2021-11-07] MEDS: Acetaminophen 500 MG Tablet 1000 MG PO (22:21)
[2021-11-07 22:36] VITALS: BP 153/99; PULSE 68; RESP 18; TEMP 37.2; O2SAT 96
[2021-11-08] MEDS: oxyCODONE 5 MG Tablet 2.5 MG PO ×3 (03:16→12:02)
[2021-11-08 03:18] VITALS: BP 141/89; PULSE 66; RESP 18; TEMP 37.1; O2SAT 95
[2021-11-08] MEDS: 0.9% Saline Lock 10 ML Syringe IV ×2 (03:30→10:02)
[2021-11-08] MEDS: Levothyroxine 88 MCG Tablet PO (05:30)
[2021-11-08] MEDS: tiZANidine HCl 2 MG Tablet PO ×2 (05:30→15:27)
[2021-11-08] MEDS: HYDROmorphone 0.5 MG/0.5 ML SYRINGE IV (05:35)
[2021-11-08 05:39] VITALS: BP 155/98; PULSE 61; RESP 18; TEMP 37.1; O2SAT 95
[2021-11-08 06:11] LABS: Absolute Lymphocyte Count 0.42 X10^3/uL (0.83-4.51); Absolute Neutrophil Count 5.6 X10^3/uL (2.0-7.7); Hematocrit 39.8 % (40-54); Hemoglobin 13.5 g/dL (13.0-16.5); Lymphocyte # 0.42 X10^3/ul (0.83-4.51); Lymphocyte % 6.6 % (19-41); Mean Corp Hgb Conc 33.9 g/dL (32-36); Mean Corpuscular Hgb 28.7 pg (27.0-32.0); Mean Corpuscular Volume 84.5 fL (80-94); Monocyte# 0.27 X10^3/uL; Monocyte% 4.2 % (0-10); NRBC Flagged by Analyzer 0 % (0-5); Neutrophil # 5.62 X10^3/uL (2.7-7.7); Neutrophil % 87.6 % (47-70); POSITIVE DIFFERENTIAL YES; Platelet Count 168 K/mm3 (150-450); RBC Distribution Width CV 12.7 % (11.6-14.6); Red Blood Count 4.71 M/mm3 (4.6-6.2); White Blood Count 6.4 K/mm3 (4.4-11.0)
[2021-11-08 06:14] LABS: Differential Indicated SCAN CRITERIA MET
[2021-11-08 06:35] LABS: Differential Comment SCANNED
[2021-11-08 06:51] LABS: AST(SGOT) 35 U/L (15-37); Alanine Aminotransfer ALT/SGPT 48 U/L (16-61); Albumin, Serum 3.1 g/dL (3.2-5.0); Alkaline Phosphatase 36 U/L (45-117); Anion Gap 7 (5-15); BUN 23 mg/dL (7-18); BUN/Creat Ratio 29.3 RATIO (10-20); Calcium,Total 8.5 mg/dL (8.5-10.1); Chloride 107 mmol/L (98-107); Creatinine, Serum 0.78 mg/dL (0.70-1.30); EST Glomerular Filtration Rate 102 mL/min (>60); Est Glom Filt Rate - Afr Amer 123 mL/min (>60); Estimated Creatinine Clearance 59.85 ml/min; Globulin 3.1 g/dL (2.2-4.2); Glucose 141 mg/dL (74-106); Potassium 3.9 mmol/L (3.5-5.1); Protein, Total 6.2 g/dL (6.4-8.2); Sodium Level 138 mmol/L (136-145)
[2021-11-08 08:57] VITALS: BP 131/88; PULSE 67; RESP 10; TEMP 36.9; O2SAT 95
[2021-11-08] MEDS: Creon 24,000 unit DR Capsule 3 CAP PO ×2 (10:00→11:58)
[2021-11-08] MEDS: Aspirin E.C. 81 MG Tablet PO (10:01)
[2021-11-08] MEDS: dexAMETHasone 4 MG/ML Vial IV (10:02)
[2021-11-08] MEDS: Losartan Potassium 100 MG Tablet PO (10:02)
[2021-11-08] MEDS: Colestipol 1 GM TABLET PO (10:02)
[2021-11-08] MEDS: Donepezil HCl 10 MG Tablet PO (10:02)
[2021-11-08] MEDS: APIXABAN 5 MG TABLET PO (10:03)
[2021-11-08] MEDS: Escitalopram Oxalate 10 MG Tablet 30 MG PO (10:04)
[2021-11-08] MEDS: Lidocaine 5% Patch 1 PATCH TOPICAL (10:04)
--- NOTE | 2021-11-08 10:04 | PN.ID_ITS ---
Physical Exam Narrative Back pain unchanged. No fever, no n/v. Const alert and no apparent distress Resp normal air movement and clear to auscultation bilaterally Cardio regular rate and regular rhythm GI soft to palpation, non-tender and non-distended Skin no rashes or lesions noted ID ID: Route of nutrition/ use of supplements: [] Nutritional Intake: [] IV Site: [] Cali Catheter: [] Assessment & Plan Assessment/Plan (1) Bacteremia due to Gram-negative bacteria: PLAN: Klebs bacteremia. Unclear source. UA with 0 wbc. Was having some dysuria prior to admit. CT abd/pelvis did not show any clear sign of infection, does have diverticulosis. H/o Caroli disease, had been on skilled nursing cefdinir by Dr. Collins until about 3-4 months ago. Cont cefepime for now. Plan on cefdini r 300mg bid for one more week at discharge. Will follow
[2021-11-08] MEDS: Magnesium Chloride 64 MG Delay Rel.Tablet 128 MG PO (10:05)
[2021-11-08] MEDS: amLODIPine 5 MG Tablet PO (10:05)
[2021-11-08 10:06] VITALS: BP 131/88; PULSE 67
[2021-11-08] MEDS: Cholecalciferol (VIT D3) 25 MCG TABLET (1,000 UNITS) 50 MCG PO (10:06)
[2021-11-08] MEDS: Fenofibrate 145 MG Tablet PO (10:06)
[2021-11-08] MEDS: QUEtiapine 25 MG Tablet PO (10:06)
[2021-11-08] MEDS: Metoprolol(XL)Succ 25 MG Tablet PO (10:06)
[2021-11-08] MEDS: Pregabalin 75 MG Capsule 150 MG PO (10:08)
[2021-11-08] MEDS: Acetaminophen 500 MG Tablet 1000 MG PO (10:12)
[2021-11-08] MEDS: Na Biphos/Potassium Phosphate PACKET 1 PACKET PO (11:06)
--- NOTE | 2021-11-08 11:46 | CASEMGMT ---
Addendum entered by Laurel Carney 11/08/21 15:08: LENORA VALENCIA in to pt room, pt present. Pt with questions regarding w/c, how to get medical records and states she brought a medication from home that the doctor wanted. Answered questions and reviewed dc plan with palliative care and [facility]. She verbalizes understanding. TC to pt nurse to make aware of med brought in. Pt/ deny further needs. Addendum entered by Laurel Carney 11/08/21 12:39: Confirmed with palliative care that pt did sign consents for care. They are awaiting insurance approval, then the COMPETITIVE INTELLIGENCE ANALYST will be scheduled. Addendum entered by Laurel Carney 11/08/21 12:15: LENORA VALENCIA in to pt room, pt sitting up in chair. Pt is aware that [facility] will be in touch with him to come out, pt denies further homegoing needs. Left message for pt to return call as well. Original Note: LENORA VALENCIA updated Corinna at [facility] that pt is to dc today.
[2021-11-08 13:24] VITALS: BP 136/74; PULSE 76; RESP 18; TEMP 36.7; O2SAT 96
--- NOTE | 2021-11-08 14:19 | DS.PCM_ITS ---
Providers Date of Admission: 11/03/21 Date of Discharge: 11/08/21 Primary Care Physician: Dr. Angelica Grady MD Consultations 11/04/21 10:21 Consult: Orthopedics Routine Consulting Provider: Hiren Lord Reason for Consult: severe back pain, S/P lumbar surgery EMERGENT Consult: No MD Notified: Yes Date Notified: 11/04/21 Time Notified: 10:21 Method of Notification: Answering Service Method of Consult:: In-Person Comments:: bka X 20 YEARS-RIGHT, DEMENTIA 11/04/21 12:35 Consult: Pain Management Routine Consulting Provider: James Valdovinos Reason for Consult: Severe back pain EMERGENT Consult: No MD Notified: Yes Date Notified: 11/04/21 Time Notified: 12:35 Method of Notification: Verbal Comments:: left voice mail 11/04/21 12:46 Consult: Orthopedics Routine Consulting Provider: Hiren Lord Reason for Consult: INTRACTABLE BACK PAIN EMERGENT Consult: No MD Notified: Yes Date Notified: 11/04/21 Time Notified: 12:48 Method of Notification: Verbal Method of Consult:: In-Person 11/05/21 12:26 Consult: Infectious Disease Routine Consulting Provider: Oracio Falcon Reason for Consult: GNR Bacteremia on both bottles. focus unclear EMERGENT Consult: No MD Notified: Yes Date Notified: 11/05/21 Time Notified: 12:28 Method of Notification: Verbal Comments:: Discussed with Dr Veliz Reason For Visit: ACUTE ON CHRONIC BACK PAIN Diagnosis Discharge Diagnosis (1) Bacteremia due to Gram-negative bacteria: Status: Acute Code(s): R78.81 - Bacteremia Medications at Discharge Home Medications apixaban 5 mg tablet (Eliquis) 5 mg PO BID 11/29/17 aspirin 81 mg tablet,delayed release (Adult Aspirin Regimen) 81 mg PO DAILY 11/29/17 colesevelam 625 mg tablet (WelChol) 1,875 mg PO BID 11/29/17 furosemide 40 mg tablet 60 mg PO BID 11/29/17 metoprolol succinate 25 mg tablet,extended release 24 hr 37.5 mg PO DAILY 11/29/17 nitroglycerin 0.4 mg sublingual tablet (Nitrostat) 0.4 mg sublingual Q5-15M PRN Chest Pain 11/29/17 donepezil 10 mg tablet 10 mg PO DAILY 10/25/21 famotidine 20 mg tablet 20 mg PO BID 10/25/21 hydromorphone 2 mg tablet 2 mg PO BID PRN Breakthrough Pain 10/25/21 promethazine 25 mg tablet 25 mg PO TID PRN nausea and vomiting #14 tabs 10/25/21 Lactobacillus acidophilus (Acidophilus capsule) 1 cap PO TID immune health 11/02/21 amlodipine 5 mg tablet 5 mg PO DAILY bp 11/02/21 cholecalciferol (vitamin D3) 25 mcg (1,000 unit) capsule 25 mcg PO TID supplement 11/02/21 escitalopram oxalate 10 mg tablet (Lexapro) 30 mg PO DAILY 11/02/21 fenofibrate nanocrystallized 145 mg tablet 145 mg PO DAILY cholesterol 11/02/21 hydrocodone bitartrate 30 mg tablet,crush resist,extended rel. 24hr (Hysingla ER) 30 mg PO DAILY pain 11/02/21 levothyroxine 88 mcg tablet 88 mcg PO DAILY thyroid 11/02/21 flwzzq-zzysqqxq-dxbkzuv 36,000-114,000-180,000 unit capsule,delay rel (Creon) 2 cap PO TIDCM 11/02/21 losartan 100 mg tablet 100 mg PO DAILY bp 11/02/21 magnesium oxide 500 mg tablet 500 mg PO BID supplement 11/02/21 potassium chloride 20 mEq tablet,extended release(part/cryst) 20 meq PO DAILY supplement 11/02/21 pregabalin 150 mg capsule (Lyrica) 150 mg PO BID pain 11/02/21 cefdinir 300 mg capsule 300 mg PO BID #14 caps 11/08/21 lidocaine 5 % topical patch 1 patch topical DAILY 30 days #30 ea 11/08/21 tizanidine 2 mg tablet 2 mg PO TID 14 days #42 tabs 11/08/21 Hospital Course Operations None Procedures None Summary of Care Provided Minutes Spent on Discharge: 40 Hospital Course: 75-year-old male with multiple comorbidities including chronic back pain who follows with Dr. Dueñas, who comes in with low-grade fever, nausea and vomiting. Patient complained of severe back pain. He was admitted for intractable back pain. S1 and lumbar spine did not reveal any abnormalities but showed degenerative changes. Patient spiked fever in the hospital. He appeared confused. MRI of the spine showed degenerative changes. Spine surgeon was consulted, recommended conservative management. Blood cultures grew Klebsiella oxytoca. Patient was managed on IV cefepime and transiently on Flagyl. It was not clear the source of the bacteremia. CT of the abdomen and pelvis did not show any clear sign of infection. Patient has history of Caroli disease. ID was consulted. He recommended cefdinir 300 mg twice daily for 1 week at discharge. Patient will be followed up by his pain management doctor as well as his primary care doctor. Physical Exam Narrative Physical exam: General: Alert, Oriented x3, Cooperative, well HEENT: Atraumatic Oral: Moist Mucosa Neck: Supple Lungs: Clear to auscultation Cardiovascular: HS I+II, regular, no murmurs Abdomen: Bowel Sounds Present, Soft, slight tenderness over the right upper quadrant Extremities: No edema on left leg, Right BKA Skin: No rashes, No breakdown Neurological: Grossly intact Psych/Mental Status: Appropriate Medical Records Data Medical Nutrition Assessment Dietitian: Malnutrition Criteria Met Start: 11/07/21 15:44 Freq: Status: Active Protocol: Document 11/07/21 15:44 [facility] (Rec: 11/07/21 15:45 [facility] [id number]) Nutrition Malnutrition Evidence of Malnutrition Exists Yes Malnutrition (severe): Acute Illness/Injury Evidenced By Suboptimal Energy Intake ( Severe),Weight Loss (Severe) Clinical Problem Acute Disease or Injury Related Malnutrition Etiology related to acute illness and inability to consume adequate nutrition to meet est nutritional needs Signs/Symptoms as evidenced by poor po intake and 3.3% wt loss x 5 days Status Active Problem Recommendation Dietitian Recommendations/Changes Rec advance diet as able to liberal Regular -consistency per [facility] - d/t signs and symptoms of malnutrition Will order 120 ml ensure enlive 4x/day w/ medpass for increased nutrition if consumed. Will consult [facility] for appropriate food consistency. Weight / BMI Weight Weight: 79.6 kg Body Mass Index (BMI) 27.5 ABG / Lab / Microbiology Data Result Diagrams: 11/08/21 05:28 11/08/21 05:28 Laboratory: Laboratory Results - last 24 hr 11/08/21 05:28: WBC 6.4, RBC 4.71, Hgb 13.5, Hct 39.8 L, MCV 84.5, MCH 28.7, MCHC 33.9, RDW Std Deviation 39.0, RDW Coeff of Esthela 12.7, Plt Count 168, MPV 11.0, Immature Gran % (Auto) 1.600 H, Neut % (Auto) 87.6 H, Lymph % (Auto) 6.6 L , Sunflower % (Auto) 4.2, Eos % (Auto) 0.0, Baso % (Auto) 0.0, Absolute Neuts (auto) 5.6, Absolute Lymphs (auto) 0.42 L, Nucleated RBC % 0, Differential Comment SCANNED 11/08/21 05:28: Sodium 138, Potassium 3.9, Chloride 107, Carbon Dioxide 24.0, Anion Gap 7, BUN 23 H, Creatinine 0.78, Estim Creat Clear Calc 59.85, Est GFR (MDRD) Af Amer 123, Est GFR (MDRD) Non-Af 102, BUN/Creatinine Ratio 29.3 H, Glucose 141 H, Calcium 8.5, Total Bilirubin 0.70, AST 35, ALT 48, Alkaline Phosphatase 36 L, Total Protein 6.2 L, Albumin 3.1 L, Globulin 3.1, Al bumin/Globulin Ratio 1.0 Microbiology: Microbiology 11/05/21 04:15 Urine, Clean Catch Urine Culture - Final Culture exhibits no growth. 11/04/21 13:30 Blood Culture (Wb) - Left Wrist Blood Culture - Final GNR lactose furniture technician 11/04/21 13:20 Blood Culture (Wb) - Anticubital Right Blood Culture - Final Klebsiella oxytoca 11/04/21 16:29 Stool Stool Occult Blood (YARIEL) - Final Occult Blood Positive Radiography Diagnostic Testing: Radiology Impression Abdomen/Pelvis CT 11/07/21 17:25 IMPRESSION: (NOT LISTED IN ORDER OF SIGNIFICANCE) There are multiple colonic diverticula consistent with diverticulosis. 30mm abdominal aortic aneurysm. The urinary bladder is distended. This can suggest urinary retention. Other findings as above. Electronically Signed: Osito Barrios MD at 18:17 EDT , D/C Instructions Discharge Diet: 2000 mg Sodium Diet Weight Bearing Status: Weight bearing as tolerated Meaningful Use Info Meaningful Use Diagnoses (Choose all that apply): None applicable Discharge Plan Admission Admit Date/Time: 11/03/21 16:29 Primary Reason for Your Visit: Acute on chronic back pain Attending Provider: Rachel Rasheed Primary Care Provider: Angelica Grady Consulting Providers: James Valdovinos ; Hiren Lord ; Oracio Falcon ; Rick Hauser Instructions Additional Instructions / Restrictions: Take your medications as instructed Continue with home health PT/OT Follow-up with Dr. Santana in the outpatient Discharge Orders/Prescriptions Prescriptions: New tizanidine 2 mg Tablet 2 mg PO TID 14 Days Qty: 42 0RF lidocaine 5 % Adhesive Patch,Medicated 1 patch topical DAILY 30 Days Qty: 30 0RF Protocol: *Topical Application Instructions APPLICATION INSTRUCTIONS: On lumbar back cefdinir 300 mg capsule 300 mg PO BID Qty: 14 0RF Continued aspirin [Adult Aspirin Regimen] 81 mg tablet,delayed release (DR/EC) 81 mg PO DAILY Eliquis 5 mg tablet 5 mg PO BID nitroglycerin [Nitrostat] 0.4 mg tablet, sublingual 0.4 mg SUBLINGUAL Q5-15M PRN (Reason: Chest Pain) colesevelam [WelChol] 625 mg tablet 1,875 mg PO BID metoprolol succinate 25 mg tablet extended release 24 hr 37.5 mg PO DAILY furosemide 40 mg tablet 60 mg PO BID hydromorphone 2 mg tablet 2 mg PO BID PRN (Reason: Breakthrough Pain) Label Comments: TAKE 1 TABLET BY MOUTH TWICE DAILY NEEDED BREAKTHROUGH PAIN donepezil 10 mg tablet 10 mg PO DAILY famotidine 20 mg Tablet 20 mg PO BID promethazine 25 mg tablet 25 mg PO TID PRN (Reason: nausea and vomiting) Qty: 14 0RF levothyroxine 88 mcg Tablet 88 mcg PO DAILY losartan 100 mg Tablet 100 mg PO DAILY escitalopram oxalate [Lexapro] 10 mg Tablet 30 mg PO DAILY pregabalin [Lyrica] 150 mg Capsule 150 mg PO BID hydrocodone bitartrate [Hysingla ER] 30 mg Tablet,Oral Only,Ext.Rel.24 Hr 30 mg PO DAILY amlodipine 5 mg tablet 5 mg PO DAILY potassium chloride 20 mEq tablet,ER particles/crystals 20 meq PO DAILY magnesium oxide 500 mg Tablet 500 mg PO BID Acidophilus Capsule 1 cap PO TID Label Comments: TAKE 1 CAPSULE BY MOUTH THREE TIMES DAILY cholecalciferol (vitamin D3) 25 mcg (1,000 unit) Capsule 25 mcg PO TID fenofibrate nanocrystallized 145 mg tablet 145 mg PO DAILY Label Comments: TAKE 1 TABLET BY MOUTH DAILY Creon 36,000-114,000- 180,000 unit capsule,delayed release(DR/EC) 2 cap PO TIDCM Discontinued methylprednisolone 4 mg Tablets,Dose Pack See Rx Instructions .ROUTE .COMPLEX Taper: Prednisone Taper 60 mg WITH BREAKFAST for 3 Days and 0 Hour 50 mg WITH BREAKFAST for 3 Days and 0 Hour 40 mg WITH BREAKFAST for 3 Days and 0 Hour 30 mg WITH BREAKFAST for 3 Days and 0 Hour 20 mg WITH BREAKFAST for 3 Days and 0 Hour 10 mg WITH BREAKFAST for 3 Days and 0 Hour Rx Instructions: take 6 tablets by mouth on day one then decrease by one tablet daily until finished. Referrals / Follow Up: Sudhakar Santana DO [Non-Staff] - Within 2 Weeks Angelica Grady MD [Primary Care Provider] - In 1 Week Disposition Disposition (needs filled in before D/C Order can be placed): Home Health Servic e Charges/Coding Visit Charges Inpatient E&M: 64199 Disch Hosp
--- NOTE | 2021-11-09 08:34 | NURSING ---
recieved phone call from pt's concerned that incorrect Dr. Monahan was listed on DC information. states she is to call herself to schedule the followup appointment with Dr. Monahan. She has the phone number as prev. see him. physician corrected on electronic DC packet
== END 2021-11-08 16:13 | disposition home health service (06) | DRG 551 ==
LOC: ED 13:17 → MS3 13:33
PROVIDERS: Admitting Provider Internal Medicine; Emergency Provider Emergency Medicine; PCP Internal Medicine; Visit Provider Internal Medicine
DX: M54.9 Dorsalgia, unspecified (principal); J98.59 Other diseases of mediastinum, not elsewhere classified; G93.40 Encephalopathy, unspecified; R78.81 Bacteremia; I50.32 Chronic diastolic (congestive) heart failure; I48.20 Chronic atrial fibrillation, unspecified; K86.1 Other chronic pancreatitis; I11.0 Hypertensive heart disease with heart failure; M51.36 Other intervertebral disc degeneration, lumbar region; I87.2 Venous insufficiency (chronic) (peripheral); E78.5 Hyperlipidemia, unspecified; I25.10 Atherosclerotic heart disease of native coronary artery without angina pectoris; M62.830 Muscle spasm of back; M47.9 Spondylosis, unspecified; M51.26 Other intervertebral disc displacement, lumbar region; M48.061 Spinal stenosis, lumbar region without neurogenic claudication; M43.17 Spondylolisthesis, lumbosacral region; Z89.211 Acquired absence of right upper limb below elbow; Z79.01 Long term (current) use of anticoagulants; Z87.891 Personal history of nicotine dependence; Z79.82 Long term (current) use of aspirin; F32.A Depression, unspecified; Z66 Do not resuscitate; G89.29 Other chronic pain; Z95.0 Presence of cardiac pacemaker; Z51.5 Encounter for palliative care; B96.1 Klebsiella pneumoniae [K. pneumoniae] as the cause of diseases classified elsewhere
CPT/HCPCS: 36415; 71045; 72120; 72158; 74019; 74177; 76770; 80048; 80053; 81001; 82274; 82550; 82962; 83605; 83735; 84100; 85025; 85610; 85652; 86140; 87040; 87077; 87086; 87186; 93005; 97110; 97162; 97166; 97530; 97535; 99285; A9575; J7030; J7040; J7050; J7120; Q9967; A4216; J2405

== ENCOUNTER 2021-11-15 14:40 | Emergency (ER) | payer MEDICARE, OTHER, SELFPAY ==
[2021-11-15 14:41] VITALS: BP 97/62; PULSE 60; RESP 15; TEMP 36.1; O2SAT 95; BMI 26.4
--- NOTE | 2021-11-15 15:25 | CT_ITS ---
INDICATION: headache, confusion EXAMINATION: CT BRAIN - CT Head or Brain W/O Contrast Injection TECHNIQUE: Multiple axial images were obtained of the head without intravenous contrast. A radiation dose optimization technique was used for this scan. IV Contrast dosage and agent: None. COMPARISON: None. FINDINGS: BRAIN PARENCHYMA: No intra- or extra-axial hemorrhage. No evidence of acute infarct. No intracranial mass or mass effect. There is preservation of the jones/white matter interface. Posterior fossa structures are unremarkable. CSF SPACES: Appropriate for age. No hydrocephalus. Basal cisterns are patent. CALVARIUM, SKULL BASE, PARANASAL SINUSES AND MASTOID AIR CELLS: Clear. No discrete lytic or blastic abnormalities. ORBITS: Both globes, extraocular muscles, optic nerves and retrobulbar fat appear unremarkable. ASPECTS Score for Acute Strokes: 10 CT/Brain/Head without Contrast IMPRESSION: Unremarkable Brain CT without contrast. Electronically Signed: Boris Harrington MD at 16:19 EDT ,
--- NOTE | 2021-11-15 15:27 | EX.ED.DYSGE1 ---
HPI History of Present Illness Chief Complaint: Weakness Informant: patient and spouse/S.O. Onset/Context/Timing Onset: Today Narrative Narrative: Patient presents secondary to generalized weakness. Patient was admitted to the hospital November 03 through the with intractable back pain. He developed a fever while here and was found to have gram-negative julianna bacteremia. He was discharged on antibiotics which she finished this morning. Patient returns today with increased weakness primarily just today. He describes generalized weakness. He does report a mild headache along with his chronic low back pain. states he did not sleep well last night. She states he was talking to people that were not there today. [facility] Medical History Anxiety and depression Atrial fibrillation Chronic back pain Congestive heart failure GERD (gastroesophageal reflux disease) Heart disease Hemorrhoid HTN (hypertension) Osteoarthritis Pancreatitis Sleep apnea Venous (peripheral) insufficiency Home Medications apixaban 5 mg tablet (Eliquis) 5 mg PO BID 11/29/17 [History Last Taken 11/01/21] aspirin 81 mg tablet,delayed release (Adult Aspirin Regimen) 81 mg PO DAILY 11/29/17 [History Last Taken 11/01/21] colesevelam 625 mg tablet (WelChol) 1,875 mg PO BID 11/29/17 [History Last Taken 11/01/21] furosemide 40 mg tablet 60 mg PO BID 11/29/17 [History Last Taken 11/01/21] metoprolol succinate 25 mg tablet,extended release 24 hr 37.5 mg PO DAILY 11/29/17 [History Last Taken 11/01/21] nitroglycerin 0.4 mg sublingual tablet (Nitrostat) 0.4 mg sublingual Q5-15M PRN Chest Pain 11/29/17 [History Last Taken Unknown] donepezil 10 mg tablet 10 mg PO DAILY 10/25/21 [History Last Taken 11/01/21] famotidine 20 mg tablet 20 mg PO BID 10/25/21 [History Last Taken 11/01/21] hydromorphone 2 mg tablet 2 mg PO BID PRN Breakthrough Pain 10/25/21 [History Last Taken 11/01/21] promethazine 25 mg tablet 25 mg PO TID PRN nausea and vomiting #14 tabs 10/25/21 [Rx Last Taken Unknown] Lactobacillus acidophilus (Acidophilus capsule) 1 cap PO TID immune health 11/02/21 [History Last Taken 11/01/21] amlodipine 5 mg tablet 5 mg PO DAILY bp 11/02/21 [History Last Taken 11/01/21] cholecalciferol (vitamin D3) 25 mcg (1,000 unit) capsule 25 mcg PO TID supplement 11/02/21 [History Last Taken 11/01/21] escitalopram oxalate 10 mg tablet (Lexapro) 30 mg PO DAILY 11/02/21 [History Last Taken 11/01/21] fenofibrate nanocrystallized 145 mg tablet 145 mg PO DAILY cholesterol 11/02/21 [History Last Taken 11/01/21] hydrocodone bitartrate 30 mg tablet,crush resist,extended rel. 24hr (Hysingla ER) 30 mg PO DAILY pain 11/02/21 [History Last Taken 11/01/21] levothyroxine 88 mcg tablet 88 mcg PO DAILY thyroid 11/02/21 [History Last Taken 11/01/21] cnuucz-bbupqmsr-ryocbnv 36,000-114,000-180,000 unit capsule,delay rel (Creon) 2 cap PO TIDCM 11/02/21 [History Last Taken 11/01/21] losartan 100 mg tablet 100 mg PO DAILY bp 11/02/21 [History Last Taken 11/01/21] magnesium oxide 500 mg tablet 500 mg PO BID supplement 11/02/21 [History Last Taken 11/01/21] potassium chloride 20 mEq tablet,extended release(part/cryst) 20 meq PO DAILY supplement 11/02/21 [History Last Taken 11/01/21] pregabalin 150 mg capsule (Lyrica) 150 mg PO BID pain 11/02/21 [History Last Taken 11/01/21] cefdinir 300 mg capsule 300 mg PO BID #14 caps 11/08/21 [Rx Last Taken Unknown] lidocaine 5 % topical patch 1 patch topical DAILY 30 days #30 ea 11/08/21 [Rx Last Taken Unknown] tizanidine 2 mg tablet 2 mg PO TID 14 days #42 tabs 11/08/21 [Rx Last Taken Unknown] Allergy/AdvReac Type Severity Reaction Status Date / Time gabapentin Allergy Unknown Unknown Verified 11/15/21 14:41 meperidine [From Demerol] AdvReac Intermediate mental Verified 11/15/21 14:41 status change Oahqhwb-QUR-FeY Reductase AdvReac Intermediate Unknown Verified 11/15/21 14:41 Inhibitor [Qclvymb-Mla-Xis Reductase Inhibitor] Penicillins AdvReac Mild passed out Verified 11/15/21 14:41 zolpidem [From Ambien] AdvReac Mild mental Verified 11/15/21 14:41 status change topiramate AdvReac Other Verified 11/15/21 14:41 Family History Sister Diabetes Asthma Thyroid disorder Mother CVA (cerebral vascular accident) Brother CVA (cerebral vascular accident) Hypertension Heart disease Surgical History History of appendectomy History of back surgery History of cataract surgery History of cholecystectomy History of elbow surgery History of ERCP History of heart bypass surgery History of hernia repair History of hip replacement, total History of prostatectomy History of right below knee amputation Social History Smoking Status: Former smoker ROS ROS ED Constitutional Constitutional ED: Denies chills or fever(s) Eyes Eyes: Denies change in vision or discharge from eye(s) ENT ENT ED: Denies discharge from eye(s), rhinorrhea or sore throat Cardiovascular Cardiovascular: Denies chest pain or palpitations Respiratory/Chest Respiratory/Chest: Denies cough or dyspnea Gastrointestinal Gastrointestinal: Denies abdominal pain, diarrhea, nausea or vomiting Genitourinary Genitourinary ED: Denies difficulty urinating or dysuria Musculoskeletal Musculoskeletal: Reports back pain; Denies extremity pain Integumentary Denies Abrasions or rash Neurologic Neurologic: Reports headache(s) and weakness Psychiatric Psychiatric: Denies anxiety or depression Endocrine Endocrinology: Denies polydipsia or polyuria Allergic/Immunologic Allergic/Immunologic ED: Denies lip swelling or urticaria EXAM Physical Exam Const Vital Signs: 11/15/21 14:41 11/15/21 15:19 11/15/21 15:35 Temperature 97.0 F L Temperature Source Temporal Pulse Rate 60 Respiratory Rate 15 Respiratory Pattern Normal Blood Pressure 97/62 Blood Pressure Mean 73 Pulse Ox 95 Oxygen Delivery Method Room Air Room Air 11/15/21 17:00 Temperature Temperature Source Pulse Rate 60 Respiratory Rate 18 Respiratory Pattern Blood Pressure 111/83 H Blood Pressure Mean 92 Pulse Ox 98 Oxygen Delivery Method Positive well nourished and well developed General Appearance ED: well developed HEENT Reports normocephalic and head/scalp atraumatic Eyes PERRL and EOMs intact bilaterally Neck supple Chest Wall inspection of chest normal and palpation of chest normal Resp normal respiratory effort and clear to auscultation bilaterally Cardio regular rate and regular rhythm GI normal to inspection, nondistended, normoactive bowel sounds Palpation: soft Extremity Extremity Narrative: Right BKA Neuro oriented x3 Neuro Narrative: No focal neurologic deficits. Sensorium / Orientation: alert Psych mental status grossly normal Skin no rashes or lesions noted MDM MDM MDM Narrative Medical decision making narrative: CBC, chemistry studies, coags obtained. Lactic acid and cultures obtained. Head CT ordered. Lab Data Attestation: I reviewed the patient's lab results. Labs: Laboratory Results - last 24 hr 11/15/21 11/15/21 11/15/21 15:16 15:16 15:16 WBC 7.0 RBC 4.94 Hgb 13.8 Hct 43.9 MCV 88.9 MCH 27.9 MCHC 31.4 L RDW Std Deviation 42.4 RDW Coeff of Esthela 13.1 Plt Count 234 MPV 11.2 Immature Gran % (Auto) 1.600 H Neut % (Auto) 64.5 Lymph % (Auto) 19.5 Cloud % (Auto) 9.9 Eos % (Auto) 4.1 Baso % (Auto) 0.4 Absolute Neuts (auto) 4.5 Absolute Lymphs (auto) 1.36 Nucleated RBC % 0 PT 16.3 H INR 1.3 APTT 32.8 Sodium 143 Potassium 4.6 Chloride 104 Carbon Dioxide 32.0 Anion Gap 7 BUN 26 H Creatinine 1.53 H Estim Creat Clear Calc 39.12 Est GFR (MDRD) Af Amer 57 L Est GFR (MDRD) Non-Af 47 L BUN/Creatinine Ratio 17.0 Glucose 98 Lactic Acid Calcium 8.6 Total Bilirubin 0.30 AST 21 ALT 30 Alkaline Phosphatase 44 L Troponin I High Sens 15 Total Protein 6.6 Albumin 3.3 Globulin 3.3 Albumin/Globulin Ratio 1.0 Urine Color Urine Clarity Urine pH Ur Specific [place] Urine Protein Urine Glucose (UA) Urine Ketones Urine Occult Blood Urine Nitrite Urine Bilirubin Urine Urobilinogen Ur Leukocyte Esterase Urine RBC Urine WBC Ur Squamous Epith Cells Urine Bacteria Hyaline Casts Urine Mucus 11/15/21 11/15/21 15:16 17:02 WBC RBC Hgb Hct MCV MCH MCHC RDW Std Deviation RDW Coeff of Esthela Plt Count MPV Immature Gran % (Auto) Neut % (Auto) Lymph % (Auto) Cloud % (Auto) Eos % (Auto) Baso % (Auto) Absolute Neuts (auto) Absolute Lymphs (auto) Nucleated RBC % PT INR APTT Sodium Potassium Chloride Carbon Dioxide Anion Gap BUN Creatinine Estim Creat Clear Calc Est GFR (MDRD) Af Amer Est GFR (MDRD) Non-Af BUN/Creatinine Ratio Glucose Lactic Acid 1.3 Calcium Total Bilirubin AST ALT Alkaline Phosphatase Troponin I High Sens Total Protein Albumin Globulin Albumin/Globulin Ratio Urine Color Yellow Urine Clarity Clear Urine pH 5.0 Ur Specific [place] 1.025 Urine Protein 15 H Urine Glucose (UA) Normal Urine Ketones Negative Urine Occult Blood Negative Urine Nitrite Negative Urine Bilirubin Negative Urine Urobilinogen Normal Ur Leukocyte Esterase 25 H Urine RBC 0-5 SEEN Urine WBC 0-5 SEEN Ur Squamous Epith Cells 0 SEEN Urine Bacteria RARE Hyaline Casts 50-100 SEEN Urine Mucus 0 SEEN Radiography Chest X-Ray - ED: 1 View, Read by ED Physician and Chronic Changes Diagnostic Testing: Clinical Impression(s) from Imaging Studies Brain CT 11/15/21 15:25 IMPRESSION: Unremarkable Brain CT without contrast. Electronically Signed: Boris Harrington MD at 16:19 EDT Reading Location ID and State: [address] [place] [address] Tel , Service support , Chest X-Ray 11/15/21 16:00 IMPRESSION: No radiographic evidence of acute cardiopulmonary disease. Electronically Signed: Boris Harrington MD at 16:14 EDT , EKG Initial EKG: Attestation: I personally reviewed and interpreted this EKG as follows: Comments: Paced rhythm at 62 bpm. No acute ischemia. Treatment and Re-Evaluation Narrative: On repeat evaluation patient resting calmly. CBC is unremarkable. Coags normal. Chemistry studies significant only for slight bump in BUN and creatinine to 26 and 1.53 respectively. Hepatic function unremarkable. Lactic acid is normal at 1.3. Urinalysis shows 50-100 hyaline casts, but no sign of acute infection. EKG reveals no ischemia and chest x-ray reveals no infiltrate. Patient's vital signs of been stable. Test results are discussed with patient and at bedside. I have no acute findings to suggest cause for his weakness. I offered hospital admission if he did not feel that he was able to get around at home. states that they have home health coming in to help along with physical therapy. She is comfortable with him at home. I did advise him that if anything shows up on his blood or urine culture, they will receive a phone call and asked to return for further treatment. They voiced understanding and agreement. Discharge Plan Triage Chief Complaint: Weakness ED Provider: Jeannette Arnold Dx/Rx/DC Orders Clinical Impression: Generalized weakness, Dehydration Instructions: ED Weakness (Uncertain Cause) Prescriptions: No Action aspirin [Adult Aspirin Regimen] 81 mg tablet,delayed release (DR/EC) 81 mg PO DAILY Eliquis 5 mg tablet 5 mg PO BID nitroglycerin [Nitrostat] 0.4 mg tablet, sublingual 0.4 mg SUBLINGUAL Q5-15M PRN (Reason: Chest Pain) colesevelam [WelChol] 625 mg tablet 1,875 mg PO BID metoprolol succinate 25 mg tablet extended release 24 hr 37.5 mg PO DAILY furosemide 40 mg tablet 60 mg PO BID hydromorphone 2 mg tablet 2 mg PO BID PRN (Reason: Breakthrough Pain) Label Comments: TAKE 1 TABLET BY MOUTH TWICE DAILY NEEDED BREAKTHROUGH PAIN donepezil 10 mg tablet 10 mg PO DAILY famotidine 20 mg Tablet 20 mg PO BID promethazine 25 mg tablet 25 mg PO TID PRN (Reason: nausea and vomiting) Qty: 14 0RF levothyroxine 88 mcg Tablet 88 mcg PO DAILY losartan 100 mg Tablet 100 mg PO DAILY escitalopram oxalate [Lexapro] 10 mg Tablet 30 mg PO DAILY pregabalin [Lyrica] 150 mg Capsule 150 mg PO BID hydrocodone bitartrate [Hysingla ER] 30 mg Tablet,Oral Only,Ext.Rel.24 Hr 30 mg PO DAILY amlodipine 5 mg tablet 5 mg PO DAILY potassium chloride 20 mEq tablet,ER particles/crystals 20 meq PO DAILY magnesium oxide 500 mg Tablet 500 mg PO BID Acidophilus Capsule 1 cap PO TID Label Comments: TAKE 1 CAPSULE BY MOUTH THREE TIMES DAILY cholecalciferol (vitamin D3) 25 mcg (1,000 unit) Capsule 25 mcg PO TID fenofibrate nanocrystallized 145 mg tablet 145 mg PO DAILY Label Comments: TAKE 1 TABLET BY MOUTH DAILY Creon 36,000-114,000- 180,000 unit capsule,delayed release(DR/EC) 2 cap PO TIDCM tizanidine 2 mg Tablet 2 mg PO TID 14 Days Qty: 42 0RF lidocaine 5 % Adhesive Patch,Medicated 1 patch topical DAILY 30 Days Qty: 30 0RF Protocol: *Topical Application Instructions APPLICATION INSTRUCTIONS: On lumbar back cefdinir 300 mg capsule 300 mg PO BID Qty: 14 0RF Primary Care Provider: Angelica Grady Referrals: Angelica Grady MD [Primary Care Provider] - 3-5 Days Disposition Disposition: Home, Self Care
[2021-11-15 16:00] LABS: Absolute Lymphocyte Count 1.36 X10^3/uL (0.83-4.51); Absolute Neutrophil Count 4.5 X10^3/uL (2.0-7.7); Basophil# 0.03 X10^3/uL; Basophil% 0.4 % (0-1); Eosinophil# 0.29 X10^3/uL; Eosinophils% 4.1 % (0-5); Hematocrit 43.9 % (40-54); Hemoglobin 13.8 g/dL (13.0-16.5); Lymphocyte # 1.36 X10^3/ul (0.83-4.51); Lymphocyte % 19.5 % (19-41); Mean Corp Hgb Conc 31.4 g/dL (32-36); Mean Corpuscular Hgb 27.9 pg (27.0-32.0); Mean Corpuscular Volume 88.9 fL (80-94); Mean Platelet Vol. 11.2 fl (6.2-12.0); Monocyte# 0.69 X10^3/uL; Monocyte% 9.9 % (0-10); NRBC Flagged by Analyzer 0 % (0-5); Neutrophil # 4.51 X10^3/uL (2.7-7.7); Neutrophil % 64.5 % (47-70); Platelet Count 234 K/mm3 (150-450); RBC Distribution Width CV 13.1 % (11.6-14.6); RBC Distribution Width SD 42.4 fl (35.1-43.9); Red Blood Count 4.94 M/mm3 (4.6-6.2)
--- NOTE | 2021-11-15 16:00 | RAD_ITS ---
INDICATION: confusion EXAMINATION/TECHNIQUE: X-RAY - XR Chest 1 View COMPARISON: 11/04/2021. FINDINGS: LINES/DEVICES: AICD visualized in the left chest with single lead in the heart. Sternal wires are seen in position. EKG leads are seen superimposing the chest. LUNGS: Peribronchial cuffing bilateral hilar prominence is seen, the peripheral bronchovascular markings are otherwise unremarkable, no evidence of focal infiltrate or consolidation. No evidence of pneumothorax or pleural effusion. No evidence of parenchymal lung masses seen. MEDIASTINUM AND CARDIOVASCULAR STRUCTURES: Cardiac silhouette not enlarged. BONES AND SOFT TISSUES: Degenerative bone changes. RAD/Chest 1 View (Portable) IMPRESSION: No radiographic evidence of acute cardiopulmonary disease. Electronically Signed: Boris Harrington MD at 16:14 EDT ,
[2021-11-15 16:05] LABS: International Normalized Ratio 1.3; Prothrombin Time (Protime)PT. 16.3 SECONDS (11.7-14.9)
[2021-11-15 16:06] LABS: Partial Thromboplast Time 32.8 Seconds (24.1-36.2)
[2021-11-15 16:25] LABS: AST(SGOT) 21 U/L (15-37); Alanine Aminotransfer ALT/SGPT 30 U/L (16-61); Albumin, Serum 3.3 g/dL (3.2-5.0); Alkaline Phosphatase 44 U/L (45-117); Anion Gap 7 (5-15); BUN 26 mg/dL (7-18); Calcium,Total 8.6 mg/dL (8.5-10.1); Chloride 104 mmol/L (98-107); Creatinine, Serum 1.53 mg/dL (0.70-1.30); EST Glomerular Filtration Rate 47 mL/min (>60); Est Glom Filt Rate - Afr Amer 57 mL/min (>60); Estimated Creatinine Clearance 39.12 ml/min; Globulin 3.3 g/dL (2.2-4.2); Glucose 98 mg/dL (74-106); Potassium 4.6 mmol/L (3.5-5.1); Protein, Total 6.6 g/dL (6.4-8.2); Sodium Level 143 mmol/L (136-145); Troponin-I HS 15 pg/mL (3.0-78.0)
--- NOTE | 2021-11-15 16:26 | ED.RN ---
CALLED LAB, BOTH SETS OF BLOOD CULTURES RECIEVED.
[2021-11-15 16:37] LABS: Lactic Acid 1.3 mmol/L (0.4-1.9)
[2021-11-15 17:00] VITALS: BP 111/83; PULSE 60; RESP 18; O2SAT 98
[2021-11-15 17:08] LABS: Mucous, Urine 0 SEEN /hpf (<or=2+); Squamous Epithelial Cells - UA 0 SEEN /hpf (0-5)
[2021-11-15] MEDS: 0.9% Normal Saline 1,000 ML 150 ML IV (17:15)
[2021-11-15 17:20] LABS: Color, Urine Yellow (Yellow); Glucose, Dipstick Normal (Normal); Ketone-Dipstick Negative (Negative); Leukocyte Esterase-Dipstick 25 /ul (Negative); Nitrite-Dipstick Negative (Negative); Occult Blood-Urine Negative /ul (Negative); Protein-Dipstick 15 mg/dl (Negative); Specific Gravity, Urine 1.025 (1.002-1.030); Urine Bilirubin Dipstick Negative (Negative); Urine Clarity Clear (Clear); Urine Urobilinogen Normal (Normal)
[2021-11-15 17:44] LABS: Bacteria RARE /hpf (None Seen); Red Blood Cells-Urine 0-5 SEEN /hpf (0-5); White Blood Cells 0-5 SEEN /hpf (0-5)
[2021-11-15 17:45] LABS: Hyaline Cast 50-100 SEEN /lpf (0-5)
[2021-11-15 18:45] VITALS: BP 104/67; PULSE 71; RESP 18; O2SAT 99
== END 2021-11-15 18:53 | disposition home or self-care (01) ==
PROVIDERS: Emergency Provider Emergency Medicine; PCP Internal Medicine; Visit Provider Emergency Medicine
DX: E86.0 Dehydration (principal); I11.0 Hypertensive heart disease with heart failure; I50.9 Heart failure, unspecified; Z87.891 Personal history of nicotine dependence; M54.9 Dorsalgia, unspecified; R53.1 Weakness
CPT/HCPCS: 70450; 71045; 80053; 81001; 83605; 84484; 85025; 85610; 85730; 87040; 87086; 93005; 99285; J7030; A4216

== ENCOUNTER 2021-11-23 11:29 | Emergency (ER) | payer MEDICARE, OTHER, SELFPAY ==
[2021-11-23 11:31] VITALS: BP 137/87; PULSE 60; RESP 18; TEMP 36; O2SAT 99; BMI 28.3
[2021-11-23 11:51] VITALS: BP 113/73; PULSE 62; RESP 10; O2SAT 99
--- NOTE | 2021-11-23 12:03 | EDS_ITS ---
HPI History of Present Illness Chief Complaint: Shortness of Breath Informant: patient Onset/Context/Timing Onset: Today Context: gradual Timing: Waxes and wanes Quality: Positive for Orthopnea Worsened by: Lying flat Relieved by: other (Sitting up, walking) Associated Symptoms post nasal drip; Negative for cough, rhinorrhea, ear pain, fever, sore throat, chills, sweats, clear sputum, white sputum, yellow sputum or green sputum Chest Pain: Positive for None Narrative Narrative: Patient presents with shortness of breath that began today. Patient states he has gradually gotten more short of breath. Patient states it has been waxing and waning. Patient states his pulse oximeter is low when his home health nurse was checking it. states that it actually improved when he sat up and was walking. Patient admits to some postnasal and sinus drainage. Patient denies any cough. Patient denies any fevers or chills. Patient denies any chest pain. [facility] Medical History Anxiety and depression Atrial fibrillation Chronic back pain Congestive heart failure GERD (gastroesophageal reflux disease) Heart disease Hemorrhoid HTN (hypertension) Osteoarthritis Pancreatitis Sleep apnea Venous (peripheral) insufficiency Home Medications apixaban 5 mg tablet (Eliquis) 5 mg PO BID 11/29/17 [History Last Taken 11/01/21] aspirin 81 mg tablet,delayed release (Adult Aspirin Regimen) 81 mg PO DAILY 11/29/17 [History Last Taken 11/01/21] colesevelam 625 mg tablet (WelChol) 1,875 mg PO BID 11/29/17 [History Last Taken 11/01/21] furosemide 40 mg tablet 60 mg PO BID 11/29/17 [History Last Taken 11/01/21] metoprolol succinate 25 mg tablet,extended release 24 hr 37.5 mg PO DAILY 11/29/17 [History Last Taken 11/01/21] nitroglycerin 0.4 mg sublingual tablet (Nitrostat) 0.4 mg sublingual Q5-15M PRN Chest Pain 11/29/17 [History Last Taken Unknown] donepezil 10 mg tablet 10 mg PO DAILY 10/25/21 [History Last Taken 11/01/21] famotidine 20 mg tablet 20 mg PO BID 10/25/21 [History Last Taken 11/01/21] hydromorphone 2 mg tablet 2 mg PO BID PRN Breakthrough Pain 10/25/21 [History Last Taken 11/01/21] promethazine 25 mg tablet 25 mg PO TID PRN nausea and vomiting #14 tabs 10/25/21 [Rx Last Taken Unknown] Lactobacillus acidophilus (Acidophilus capsule) 1 cap PO TID immune health 11/02/21 [History Last Taken 11/01/21] amlodipine 5 mg tablet 5 mg PO DAILY bp 11/02/21 [History Last Taken 11/01/21] cholecalciferol (vitamin D3) 25 mcg (1,000 unit) capsule 25 mcg PO TID supplement 11/02/21 [History Last Taken 11/01/21] escitalopram oxalate 10 mg tablet (Lexapro) 30 mg PO DAILY 11/02/21 [History Last Taken 11/01/21] fenofibrate nanocrystallized 145 mg tablet 145 mg PO DAILY cholesterol 11/02/21 [History Last Taken 11/01/21] hydrocodone bitartrate 30 mg tablet,crush resist,extended rel. 24hr (Hysingla ER) 30 mg PO DAILY pain 11/02/21 [History Last Taken 11/01/21] levothyroxine 88 mcg tablet 88 mcg PO DAILY thyroid 11/02/21 [History Last Taken 11/01/21] yjfdki-czfrtdai-sksrzdp 36,000-114,000-180,000 unit capsule,delay rel (Creon) 2 cap PO TIDCM 11/02/21 [History Last Taken 11/01/21] losartan 100 mg tablet 100 mg PO DAILY bp 11/02/21 [History Last Taken 11/01/21] magnesium oxide 500 mg tablet 500 mg PO BID supplement 11/02/21 [History Last Taken 11/01/21] potassium chloride 20 mEq tablet,extended release(part/cryst) 20 meq PO DAILY supplement 11/02/21 [History Last Taken 11/01/21] pregabalin 150 mg capsule (Lyrica) 150 mg PO BID pain 11/02/21 [History Last Taken 11/01/21] cefdinir 300 mg capsule 300 mg PO BID #14 caps 11/08/21 [Rx Last Taken Unknown] lidocaine 5 % topical patch 1 patch topical DAILY 30 days #30 ea 11/08/21 [Rx Last Taken Unknown] tizanidine 2 mg tablet 2 mg PO TID 14 days #42 tabs 11/08/21 [Rx Last Taken Unknown] Allergy/AdvReac Type Severity Reaction Status Date / Time gabapentin Allergy Unknown Unknown Verified 11/23/21 11:30 meperidine [From Demerol] AdvReac Intermediate mental Verified 11/23/21 11:30 status change Grlpdcx-TGF-LeN Reductase AdvReac Intermediate Unknown Verified 11/23/21 11:30 Inhibitor [Lgdmjcz-Iqd-Yki Reductase Inhibitor] Penicillins AdvReac Mild passed out Verified 11/23/21 11:30 zolpidem [From Ambien] AdvReac Mild mental Verified 11/23/21 11:30 status change topiramate AdvReac Other Verified 11/23/21 11:30 Family History Sister Diabetes Asthma Thyroid disorder Mother CVA (cerebral vascular accident) Brother CVA (cerebral vascular accident) Hypertension Heart disease Surgical History History of appendectomy History of back surgery History of cataract surgery History of cholecystectomy History of elbow surgery History of ERCP History of heart bypass surgery History of hernia repair History of hip replacement, total History of prostatectomy History of right below knee amputation Social History Smoking Status: Former smoker ROS ROS ED Constitutional Constitutional ED: Denies chills or fever(s) Eyes Eyes: Denies blurry vision or change in vision ENT ENT ED: Denies rhinorrhea or sore throat Cardiovascular Cardiovascular: Denies chest pain or palpitations Respiratory/Chest Respiratory/Chest: Reports dyspnea; Denies cough Gastrointestinal Gastrointestinal: Denies nausea or vomiting Genitourinary Genitourinary ED: Denies dysuria or hematuria Musculoskeletal Musculoskeletal: Reports back pain; Denies neck pain Integumentary Denies abscess or rash Neurologic Neurologic: Reports headache(s); Denies weakness Allergic/Immunologic Allergic/Immunologic ED: Denies mouth swelling or urticaria EXAM Physical Exam Const Vital Signs: 11/23/21 11:31 11/23/21 11:51 11/23/21 11:52 Temperature 96.8 F L Temperature Source Temporal Pulse Rate 60 62 Respiratory Rate 18 10 L Respiratory Effort Normal Non-Labored Respiratory Depth Shallow Respiratory Pattern Bradypnea Blood Pressure 137/87 H 113/73 Blood Pressure Mean 103 86 Pulse Ox 99 99 Oxygen Delivery Method Room Air Room Air 11/23/21 13:08 11/23/21 13:37 Temperature 97.6 F L Temperature Source Temporal Pulse Rate 60 60 Respiratory Rate 13 18 Respiratory Effort Respiratory Depth Respiratory Pattern Blood Pressure 99/75 104/72 Blood Pressure Mean 83 82 Pulse Ox 92 93 Oxygen Delivery Method Room Air Room Air Positive well nourished and well developed General Appearance ED: well developed and NAD HEENT Reports moist mucous membranes Neck supple and no JVD Resp normal respiratory effort and clear to auscultation bilaterally Cardio regular rate, regular rhythm and no murmurs GI normal to inspection, nondistended, normoactive bowel sounds and non-tender Palpation: soft Extremity normal to inspection General Extremety ED: Negative for edema or tenderness General Extremity: Negative for edema Neuro oriented x3, CN's II-XII intact bilaterally and no sensory deficits noted Sensorium / Orientation: alert Motor Exam: strength 5/5 throughout Psych mental status grossly normal Skin no rashes or lesions noted MDM MDM MDM Narrative Medical decision making narrative: EKG was obtained. On my interpretation, it shows a ventricular paced rhythm. There is a left bundle branch block pattern. There are no acute ST or T wave changes. CBC shows slight anemia with a hemoglobin of 12.7 and hematocrit 39.5. Comprehensive metabolic profile was within normal limits. High-sensitivity troponin was normal. B natruretic peptide was 223.2. This is stable compared to previous results. PA and lateral chest x-ray was obtained. There are 2 views. On my interpretation, lung davila are clear. There is hyperinflation. There is normal cardiac silhouette. Bony thorax is normal. There is no acute process noted. Radiologist also interpreted the x-ray and agrees. Arterial blood gas was obtained. pH was 7.38, PO2 was 61, PCO2 was 47.1, bicarb was 28, and oxygen saturation was 90% on room air. On reevaluation, patient's oxygen level would increase to 95% on room air while he was awake and talking. Patient states he would prefer to go home. I think his respiratory rate is diminished due to his pain medication. Case was discussed with his primary care physician, Dr. Woods. He is agreeable with the plan. He will follow-up with the patient in the office. Patient and family understand. All questions were answered. Lab Data Attestation: I reviewed the patient's lab results. Labs: Laboratory Results - last 24 hr 11/23/21 11/23/21 11/23/21 12:20 12:20 12:20 WBC 3.3 L RBC 4.49 L Hgb 12.7 L Hct 39.5 L MCV 88.0 MCH 28.3 MCHC 32.2 RDW Std Deviation 40.3 RDW Coeff of Esthela 12.5 Plt Count 181 MPV 10.3 Immature Gran % (Auto) 0.600 Neut % (Auto) 66.1 Lymph % (Auto) 19.8 [place] % (Auto) 8.1 Eos % (Auto) 4.8 Baso % (Auto) 0.6 Absolute Neuts (auto) 2.2 Absolute Lymphs (auto) 0.66 L Nucleated RBC % 0 Sodium 141 Potassium 3.8 Chloride 107 Carbon Dioxide 29.0 Anion Gap 5 BUN 10 Creatinine 1.12 Estim Creat Clear Calc 53.44 Est GFR (MDRD) Af Amer 82 Est GFR (MDRD) Non-Af 67 BUN/Creatinine Ratio 8.9 L Glucose 136 H Calcium 8.4 L Total Bilirubin 0.40 AST 18 ALT 24 Alkaline Phosphatase 46 Troponin I High Sens 12 B-Natriuretic Peptide 223.2 H Total Protein 6.4 Albumin 3.1 L Globulin 3.3 Albumin/Globulin Ratio 0.9 ABG Data ABG results: ABG 11/23/21 12:50 Specimen Type ART Sample Site L Radial pH 7.38 Bicarbonate Actual 28.0 H Total CO2 30 Base Excess 3 H O2 Saturation 90 L ABG pCO2 47.1 H ABG pO2 61 L Patrick Test Positive O2 Delivery Device Room Air Radiography Diagnostic Testing: Clinical Impression(s) from Imaging Studies Chest X-Ray 11/23/21 12:25 IMPRESSION: Hyperinflation. The lungs are clear. Electronically Signed: Jourdan Sandy MD at 12:39 EDT , EKG Initial EKG: Attestation: I personally reviewed and interpreted this EKG as follows: Interpretation: Paced (60) and LBBB Prior EKG tracings: available for review Prior: Unchanged (11/15/2021) Discharge Plan Triage Chief Complaint: Shortness of Breath ED Provider: Vijay Tirado Dx/Rx/DC Orders Clinical Impression: Hypoxic episode, Side effect of medication Instructions: ED COPD Flare Prescriptions: No Action aspirin [Adult Aspirin Regimen] 81 mg tablet,delayed release (DR/EC) 81 mg PO DAILY Eliquis 5 mg tablet 5 mg PO BID nitroglycerin [Nitrostat] 0.4 mg tablet, sublingual 0.4 mg SUBLINGUAL Q5-15M PRN (Reason: Chest Pain) colesevelam [WelChol] 625 mg tablet 1,875 mg PO BID metoprolol succinate 25 mg tablet extended release 24 hr 37.5 mg PO DAILY furosemide 40 mg tablet 60 mg PO BID hydromorphone 2 mg tablet 2 mg PO BID PRN (Reason: Breakthrough Pain) Label Comments: TAKE 1 TABLET BY MOUTH TWICE DAILY NEEDED BREAKTHROUGH PAIN donepezil 10 mg tablet 10 mg PO DAILY famotidine 20 mg Tablet 20 mg PO BID promethazine 25 mg tablet 25 mg PO TID PRN (Reason: nausea and vomiting) Qty: 14 0RF levothyroxine 88 mcg Tablet 88 mcg PO DAILY losartan 100 mg Tablet 100 mg PO DAILY escitalopram oxalate [Lexapro] 10 mg Tablet 30 mg PO DAILY pregabalin [Lyrica] 150 mg Capsule 150 mg PO BID hydrocodone bitartrate [Hysingla ER] 30 mg Tablet,Oral Only,Ext.Rel.24 Hr 30 mg PO DAILY amlodipine 5 mg tablet 5 mg PO DAILY potassium chloride 20 mEq tablet,ER particles/crystals 20 meq PO DAILY magnesium oxide 500 mg Tablet 500 mg PO BID Acidophilus Capsule 1 cap PO TID Label Comments: TAKE 1 CAPSULE BY MOUTH THREE TIMES DAILY cholecalciferol (vitamin D3) 25 mcg (1,000 unit) Capsule 25 mcg PO TID fenofibrate nanocrystallized 145 mg tablet 145 mg PO DAILY Label Comments: TAKE 1 TABLET BY MOUTH DAILY Creon 36,000-114,000- 180,000 unit capsule,delayed release(DR/EC) 2 cap PO TIDCM tizanidine 2 mg Tablet 2 mg PO TID 14 Days Qty: 42 0RF lidocaine 5 % Adhesive Patch,Medicated 1 patch topical DAILY 30 Days Qty: 30 0RF Protocol: *Topical Application Instructions APPLICATION INSTRUCTIONS: On lumbar back cefdinir 300 mg capsule 300 mg PO BID Qty: 14 0RF Primary Care Provider: Angelica Grady Referrals: Angelica Grady MD [Primary Care Provider] - 3-5 Days Disposition Disposition: Home, Self Care
--- NOTE | 2021-11-23 12:10 | EKG12_ITS ---
Test Reason : SOB Blood Pressure : / mmHG Vent. Rate : 060 BPM Atrial Rate : 357 BPM P-R Int : 000 ms QRS Dur : 142 ms QT Int : 504 ms P-R-T Axes : 000 -32 092 degrees QTc Int : 504 ms Ventricular-paced rhythm Abnormal ECG Confirmed by ISA ANGELO, DEREK ([id number]), social media editor WADE CAMPOS ([id number]) on 11/24/2021 12:59:48 P M Referred By: YOUNG Confirmed By:MATTHEW MOSS MD
--- NOTE | 2021-11-23 12:25 | RAD_ITS ---
STUDY: X-RAY CHEST REASON FOR EXAM: Male, 75 years old. Dyspnea TECHNIQUE: PA and lateral views of the chest. COMPARISON: Comparison is made with prior study dated 11/15/2021. FINDINGS: EKG electrodes are seen. Hyperinflation. The lungs are clear. There is no demonstrated pleural abnormality. Sternal cerclage wires and vascular clips are present from a prior sternotomy and coronary artery bypass graft procedure (CABG). A left-sided unipolar pacemaker is seen. Normal mediastinum and eber. Normal visualized pulmonary arteries. There is atherosclerotic calcification of the aortic arch with tortuosity. Normal visualized thoracic spine. Normal visualized ribs, clavicles, and shoulders. There is no demonstrated abnormality of the visualized soft tissue structures of the upper abdomen. RAD/Chest PA and Lateral IMPRESSION: Hyperinflation. The lungs are clear. Electronically Signed: Jourdan Sandy MD at 12:39 EDT ,
[2021-11-23 12:26] LABS: Absolute Lymphocyte Count 0.66 X10^3/uL (0.83-4.51); Absolute Neutrophil Count 2.2 X10^3/uL (2.0-7.7); Basophil# 0.02 X10^3/uL; Basophil% 0.6 % (0-1); Eosinophil# 0.16 X10^3/uL; Eosinophils% 4.8 % (0-5); Hematocrit 39.5 % (40-54); Hemoglobin 12.7 g/dL (13.0-16.5); Lymphocyte # 0.66 X10^3/ul (0.83-4.51); Lymphocyte % 19.8 % (19-41); Mean Corp Hgb Conc 32.2 g/dL (32-36); Mean Corpuscular Hgb 28.3 pg (27.0-32.0); Mean Platelet Vol. 10.3 fl (6.2-12.0); Monocyte# 0.27 X10^3/uL; Monocyte% 8.1 % (0-10); NRBC Flagged by Analyzer 0 % (0-5); Neutrophil % 66.1 % (47-70); Platelet Count 181 K/mm3 (150-450); RBC Distribution Width CV 12.5 % (11.6-14.6); RBC Distribution Width SD 40.3 fl (35.1-43.9); Red Blood Count 4.49 M/mm3 (4.6-6.2); White Blood Count 3.3 K/mm3 (4.4-11.0)
[2021-11-23 12:44] LABS: ALB/GLOB Ratio 0.9 RATIO (0.9-2.4); AST(SGOT) 18 U/L (15-37); Alanine Aminotransfer ALT/SGPT 24 U/L (16-61); Albumin, Serum 3.1 g/dL (3.2-5.0); Alkaline Phosphatase 46 U/L (45-117); Anion Gap 5 (5-15); BUN 10 mg/dL (7-18); BUN/Creat Ratio 8.9 RATIO (10-20); Calcium,Total 8.4 mg/dL (8.5-10.1); Chloride 107 mmol/L (98-107); Creatinine, Serum 1.12 mg/dL (0.70-1.30); EST Glomerular Filtration Rate 67 mL/min (>60); Est Glom Filt Rate - Afr Amer 82 mL/min (>60); Estimated Creatinine Clearance 53.44 ml/min; Globulin 3.3 g/dL (2.2-4.2); Glucose 136 mg/dL (74-106); Potassium 3.8 mmol/L (3.5-5.1); Protein, Total 6.4 g/dL (6.4-8.2); Sodium Level 141 mmol/L (136-145); Troponin-I HS 12 pg/mL (3.0-78.0)
[2021-11-23 12:51] LABS: BNP,B-Type NATRIURETIC PEPTIDE 223.2 pg/mL (0-100)
[2021-11-23 12:55] LABS: Allen Test Positive; Base Excess 3 mmol/L (-2 to +2); Blood Gas Specimen Type ART; O2 Delivery Device Room Air; PO2 61 mmHG (75-100); SITE L Radial; SO2 90 % (95-99); Total Carbon Dioxide 30 mmol/L; pCO2 47.1 mmHg (35-45); pH 7.38 (7.35-7.45)
[2021-11-23 13:08] VITALS: BP 99/75; PULSE 60; RESP 13; TEMP 36.4; O2SAT 92
[2021-11-23 13:37] VITALS: BP 104/72; PULSE 60; RESP 18; O2SAT 93
[2021-11-23 14:50] VITALS: BP 106/74; PULSE 60; RESP 9; O2SAT 92
== END 2021-11-23 14:51 | disposition home or self-care (01) ==
PROVIDERS: Emergency Provider Emergency Medicine; PCP Internal Medicine; Visit Provider Emergency Medicine
DX: R09.02 Hypoxemia (principal); I11.0 Hypertensive heart disease with heart failure; I50.9 Heart failure, unspecified; Z87.891 Personal history of nicotine dependence; M54.9 Dorsalgia, unspecified; D64.9 Anemia, unspecified; I44.7 Left bundle-branch block, unspecified; R06.02 Shortness of breath; Z79.82 Long term (current) use of aspirin
CPT/HCPCS: 36600; 71046; 80053; 82803; 83880; 84484; 85025; 87428; 93005; 99284; A4216

== ENCOUNTER 2021-11-26 18:49 | Emergency (ER) | payer MEDICARE, OTHER, SELFPAY ==
[2021-11-26 18:50] VITALS: BP 146/80; PULSE 60; RESP 18; TEMP 36.6; O2SAT 98; BMI 26.1
--- NOTE | 2021-11-26 19:11 | CT_ITS ---
STUDY: CT Abdomen And Pelvis W/ Contrast Injection 11/26/2021 9:11 PM REASON FOR EXAM: Male, 75 years old. ABDOMINAL PAIN Right-sided abdominal pain TECHNIQUE: Transaxial images were obtained without oral contrast, and with IV 100mL [id number] intravenous contrast. Individualized dose optimization techniques were used for this CT. COMPARISON: 11.07.21 FINDINGS: There are atherosclerotic calcifications of visualized coronary arteries. Multiple median sternotomy wires are noted consistent for cardiac surgery. The visualized portions of the heart are within normal limits. Pneumobilia. Multiple stable cystic lesions in the left lobe and right lobe of the liver. Unremarkable gallbladder and extrahepatic biliary system. Unremarkable spleen. Unremarkable pancreas. Unremarkable bilateral adrenal glands. There are hypodensities in the right kidney. These are consistent for cysts. No follow up required. There are hypodensities in the left kidney. These are consistent for cysts. No follow up required. Cortical scarring of the right kidney. There is a small hiatal hernia. Unremarkable small intestine. There are multiple colonic diverticula consistent with diverticulosis. There is non-visualization of the appendix. There are calcifications of the abdominal aorta. This is consistent for atherosclerotic disease. There is 30mm abdominal aortic aneurysm. Unremarkable inferior vena cava. Subcentimeter mesenteric lymph nodes. Urinary bladder wall has wall thickening. This can be related to a partially contractile state. However, a cystitis is not excluded. Urinalysis should be performed in an effort to exclude cystitis. There is enlargement of the prostate gland. Unremarkable abdominal wall. There are diffuse degenerative changes of the visualized lumbar spine. There is scoliosis of the lumbar spine. There is bilateral neural foraminal stenosis at L4-5 and L5-S1. There are bilateral pars articularis defects at L5-S1. There is a Grade 1 anterolisthesis of L5 on S1. Healed left iliac bone fracture. CT/Abdomen/Pelvis W IV Cont ONLY IMPRESSION: (NOT LISTED IN ORDER OF SIGNIFICANCE) Gastritis. There are multiple colonic diverticula consistent with diverticulosis. 30mm abdominal aortic aneurysm. Urinary bladder wall has wall thickening. This can be related to a partially contractile state. However, a cystitis is not excluded. Urinalysis should be performed in an effort to exclude cystitis. Other findings as above. Electronically Signed: Osito Barrois MD at 21:16 EDT ,
--- NOTE | 2021-11-26 19:14 | EDS_ITS ---
HPI HPI - GI History of Present Illness Chief Complaint: Abd Pain Informant: patient and spouse/S.O. Abdominal Pain/Flank Pain Onset: Today and Yesterday Context: Gradual Onset Timing: Continuous Quality: Aching Location: Right Flank Current Severity: Mild Maximum Severity: Mild Nausea/Vomiting/Emesis GI Symptom: Positive for Nausea and Vomiting Onset: Today and Yesterday Severity: Mild Diarrhea/Melena/Hematochezia GI Symptom: Negative for Diarrhea, Melena or Hematochezia Associated Symptoms Associated Symptoms: Negative for Dysuria, Frequency, Hematuria or Urgency Narrative Narrative: Is a old male with chronic back pain on home Dilaudid, A. fib on Eliquis, hypertension and prior pancreatitis. Known AAA and diverticulosis. Prior abdominal cholecystectomy, appendectomy and hernia repair. Recent hospitalization. States yesterday started having right-sided abdominal pain primarily upper quadrant. Associated nausea and vomiting. No diarrhea. No fever. No constipation. No melena. No fever or dysuria. Prior similar symptoms: No Recent Illness/Hospitalization: No PFSH PFSH Medical History Anxiety and depression Atrial fibrillation Chronic back pain Congestive heart failure GERD (gastroesophageal reflux disease) Heart disease Hemorrhoid HTN (hypertension) Osteoarthritis Pancreatitis Sleep apnea Venous (peripheral) insufficiency Home Medications apixaban 5 mg tablet (Eliquis) 5 mg PO BID 11/29/17 [History Last Taken 11/01/21] aspirin 81 mg tablet,delayed release (Adult Aspirin Regimen) 81 mg PO DAILY 11/29/17 [History Last Taken 11/01/21] colesevelam 625 mg tablet (WelChol) 1,875 mg PO BID 11/29/17 [History Last Taken 11/01/21] furosemide 40 mg tablet 60 mg PO BID 11/29/17 [History Last Taken 11/01/21] metoprolol succinate 25 mg tablet,extended release 24 hr 37.5 mg PO DAILY 11/29/17 [History Last Taken 11/01/21] nitroglycerin 0.4 mg sublingual tablet (Nitrostat) 0.4 mg sublingual Q5-15M PRN Chest Pain 11/29/17 [History Last Taken Unknown] donepezil 10 mg tablet 10 mg PO DAILY 10/25/21 [History Last Taken 11/01/21] famotidine 20 mg tablet 20 mg PO BID 10/25/21 [History Last Taken 11/01/21] hydromorphone 2 mg tablet 2 mg PO BID PRN Breakthrough Pain 10/25/21 [History Last Taken 11/01/21] promethazine 25 mg tablet 25 mg PO TID PRN nausea and vomiting #14 tabs 10/25/21 [Rx Last Taken Unknown] Lactobacillus acidophilus (Acidophilus capsule) 1 cap PO TID immune health 11/02/21 [History Last Taken 11/01/21] amlodipine 5 mg tablet 5 mg PO DAILY bp 11/02/21 [History Last Taken 11/01/21] cholecalciferol (vitamin D3) 25 mcg (1,000 unit) capsule 25 mcg PO TID supplement 11/02/21 [History Last Taken 11/01/21] escitalopram oxalate 10 mg tablet (Lexapro) 30 mg PO DAILY 11/02/21 [History Last Taken 11/01/21] fenofibrate nanocrystallized 145 mg tablet 145 mg PO DAILY cholesterol 11/02/21 [History Last Taken 11/01/21] levothyroxine 88 mcg tablet 88 mcg PO DAILY thyroid 11/02/21 [History Last Taken 11/01/21] zcurzb-cdlbsnan-agogkbh 36,000-114,000-180,000 unit capsule,delay rel (Creon) 2 cap PO TIDCM 11/02/21 [History Last Taken 11/01/21] losartan 100 mg tablet 100 mg PO DAILY bp 11/02/21 [History Last Taken 11/01/21] magnesium oxide 500 mg tablet 500 mg PO BID supplement 11/02/21 [History Last Taken 11/01/21] potassium chloride 20 mEq tablet,extended release(part/cryst) 20 meq PO DAILY supplement 11/02/21 [History Last Taken 11/01/21] pregabalin 150 mg capsule (Lyrica) 150 mg PO BID pain 11/02/21 [History Last Taken 11/01/21] omeprazole 20 mg capsule,delayed release 20 mg PO DAILY 11/26/21 [History Last Taken Unknown] Allergy/AdvReac Type Severity Reaction Status Date / Time gabapentin Allergy Unknown Unknown Verified 11/26/21 18:54 meperidine [From Demerol] AdvReac Intermediate mental Verified 11/26/21 18:54 status change [id number]-[id number] Reductase AdvReac Intermediate Unknown Verified 11/26/21 18:54 Inhibitor [Fwyxlkn-Sog-Zbs Reductase Inhibitor] Penicillins AdvReac Mild passed out Verified 11/26/21 18:54 zolpidem [From Ambien] AdvReac Mild mental Verified 11/26/21 18:54 status change topiramate AdvReac Other Verified 11/26/21 18:54 Family History Sister Diabetes Asthma Thyroid disorder Mother CVA (cerebral vascular accident) Brother CVA (cerebral vascular accident) Hypertension Heart disease Surgical History History of appendectomy History of back surgery History of cataract surgery History of cholecystectomy History of elbow surgery History of ERCP History of heart bypass surgery History of hernia repair History of hip replacement, total History of prostatectomy History of right below knee amputation Social History Smoking Status: Former smoker ROS ROS ED ROS Narrative Abdominal pain. Nausea and vomiting. Review of Systems ROS Unobtainable: Denies due to encephalopathy Constitutional Constitutional ED: Denies chills or fever(s) ENT ENT ED: Denies ear pain Cardiovascular Cardiovascular: Denies chest pain Respiratory/Chest Respiratory/Chest: Denies cough or dyspnea Gastrointestinal Gastrointestinal: Reports abdominal pain, nausea and vomiting; Denies constipation, diarrhea or melena Genitourinary Genitourinary ED: Denies dysuria Musculoskeletal Musculoskeletal: Denies arthralgias Integumentary Denies abscess Neurologic Neurologic: Denies headache(s) Psychiatric Psychiatric: Denies anxiety Endocrine Endocrinology: Denies polydipsia Hematologic/Lymphatic Hematologic/Lymphatic: Denies easy bleeding Allergic/Immunologic Allergic/Immunologic ED: Denies mouth swelling or tongue swelling EXAM Physical Exam Narrative Exam Narrative: 75-year-old male no acute distress. Vital signs stable afebrile. Companied by his . H EENT exam unremarkable neck nontender lungs are clear. Heart regular rate about 60. Abdomen is soft. Nondistended. Normal bowel sounds. No peritoneal signs. He does have right upper and lower quadrant tenderness. No hernia or mass. No signs of obstruction. Moving all 4 extremities. He does have a right lower leg amputation. Neurologically is awake and alert. Const Vital Signs: 11/26/21 18:50 11/26/21 21:28 Temperature 97.9 F Temperature Source Temporal Pulse Rate 60 62 Respiratory Rate 18 16 Blood Pressure 146/80 H 130/88 H Blood Pressure Mean 102 102 Pulse Ox 98 96 Oxygen Delivery Method Room Air Room Air Positive well nourished and well developed; Negative for obese, cachectic, contractures or unkempt General Appearance ED: well developed and NAD; Negative for unkempt, cachectic, contractures or pallor Nutritional Appearance: Negative for cachectic or obese HEENT Reports moist mucous membranes normocephalic and atraumatic; Negative for trauma or tenderness Eyes PERRL and EOMs intact bilaterally General Eye ED: Negative for pale conjunctiva or scleral icterus Neck no lymphadenopathy, supple and no JVD General: Negative for tenderness Carotids: Negative for other Lymph Lymphatic: Negative for other Resp normal respiratory effort and clear to auscultation bilaterally Effort and Inspection: Negative for respiratory distress Auscultation: Negative for rales or rhonchi Cardio regular rate, S1 normal heart sound, S2 normal heart sound and no murmurs Rate: Negative for bradycardia GI non-distended and no masses; Negative for non-tender Inspection: Negative for abdominal distention Auscultation: normoactive bowel sounds Palpation: soft and tender; Negative for guarding, rigid, hepatomegaly, splenomegaly, hernia, mass, pulsatile mass or rebound tenderness present Back/Spine no CVA tenderness Extremity full ROM General Extremety ED: Negative for edema or tenderness General Extremity: Negative for edema Neuro CN's II-XII intact bilaterally and moves all extremities Sensorium / Orientation: alert, oriented to person, oriented to place and oriented to time; Negative for orientation impaired, confused, lethargic or stuporous Motor Exam: strength 5/5 throughout Psych mental status grossly normal Appearance: Negative for unkempt Attitude: No agitated Mood & Affect: Negative for depressed or anxious Skin no wounds General Skin Exam: Negative for jaundice or pallor Lesions: no lesions Rashes: no rashes Trauma: Negative for abrasion Nails: Negative for discolored MDM MDM MDM Narrative Medical decision making narrative: 75-year-old with right-sided abdominal pain. CAT scan labs being obtained. Treated with IV morphine, IV Zofran for nausea and IV fluids. Repeat exam doing well at 10:20 PM. We went over his test results. Seems to be secondary to gastritis. He will be given a GI cocktail and Protonix. He is on omeprazole and for amantadine at home which we will continue. Follow-up with his primary care physician for possible GI referral he may need upper endoscopy. Lab Data Attestation: I reviewed the patient's lab results. Lab results narrative: CBC normal white count of 5.9. H&H of 15 and 46. Platelets 261. Urinalysis 5- 10 white cells rare bacteria no nitrates. No urinary symptoms. Electrolytes are unremarkable gap of 8 normal BUN and creatinine. Liver enzymes are normal. Lipase normal 253. Labs: Laboratory Results - last 24 hr 11/26/21 11/26/21 11/26/21 19:45 19:45 19:45 WBC 5.9 RBC 5.52 Hgb 15.4 Hct 46.9 MCV 85.0 MCH 27.9 MCHC 32.8 RDW Std Deviation 38.7 RDW Coeff of Esthela 12.7 Plt Count 261 MPV 10.3 Immature Gran % (Auto) 0.500 Neut % (Auto) 63.8 Lymph % (Auto) 25.1 [place] % (Auto) 8.8 Eos % (Auto) 1.5 Baso % (Auto) 0.3 Absolute Neuts (auto) 3.8 Absolute Lymphs (auto) 1.49 Nucleated RBC % 0 Sodium 142 Potassium 3.5 Chloride 105 Carbon Dioxide 29.0 Anion Gap 8 BUN 13 Creatinine 1.15 Estim Creat Clear Calc 52.04 Est GFR (MDRD) Af Amer 79 Est GFR (MDRD) Non-Af 65 BUN/Creatinine Ratio 11.3 Glucose 116 H Calcium 9.4 Total Bilirubin 0.80 AST 20 ALT 24 Alkaline Phosphatase 58 Total Protein 7.9 Albumin 3.9 Globulin 4.0 Albumin/Globulin Ratio 1.0 Lipase 253 Urine Color Yellow Urine Clarity Clear Urine pH 6.5 Ur Specific [place] 1.015 Urine Protein 30 H Urine Glucose (UA) Normal Urine Ketones 5 H Urine Occult Blood 10 H Urine Nitrite Negative Urine Bilirubin Negative Urine Urobilinogen Normal Ur Leukocyte Esterase 100 H Urine RBC 0-5 SEEN Urine WBC 5-10 SEEN Ur Squamous Epith Cells 0-5 SEEN Urine Bacteria RARE Urine Mucus 1+ Radiography Diagnostic Testing: Clinical Impression(s) from Imaging Studies Abdomen/Pelvis CT 11/26/21 19:11 IMPRESSION: (NOT LISTED IN ORDER OF SIGNIFICANCE) Gastritis. There are multiple colonic diverticula consistent with diverticulosis. 30mm abdominal aortic aneurysm. Urinary bladder wall has wall thickening. This can be related to a partially contractile state. However, a cystitis is not excluded. Urinalysis should be performed in an effort to exclude cystitis. Other findings as above. Electronically Signed: Osito Barrios MD at 21:16 EDT , Discharge Plan Triage Chief Complaint: Abd Pain ED Provider: Paul Egan Dx/Rx/DC Orders Clinical Impression: Abdominal pain, Gastritis, History of atrial fibrillation, Chronic anticoagulation Instructions: Abdominal Pain, ED Gastritis (Adult) Prescriptions: No Action aspirin [Adult Aspirin Regimen] 81 mg tablet,delayed release (DR/EC) 81 mg PO DAILY Eliquis 5 mg tablet 5 mg PO BID nitroglycerin [Nitrostat] 0.4 mg tablet, sublingual 0.4 mg SUBLINGUAL Q5-15M PRN (Reason: Chest Pain) colesevelam [WelChol] 625 mg tablet 1,875 mg PO BID metoprolol succinate 25 mg tablet extended release 24 hr 37.5 mg PO DAILY furosemide 40 mg tablet 60 mg PO BID hydromorphone 2 mg tablet 2 mg PO BID PRN (Reason: Breakthrough Pain) Label Comments: TAKE 1 TABLET BY MOUTH TWICE DAILY NEEDED BREAKTHROUGH PAIN donepezil 10 mg tablet 10 mg PO DAILY famotidine 20 mg Tablet 20 mg PO BID promethazine 25 mg tablet 25 mg PO TID PRN (Reason: nausea and vomiting) Qty: 14 0RF levothyroxine 88 mcg Tablet 88 mcg PO DAILY losartan 100 mg Tablet 100 mg PO DAILY escitalopram oxalate [Lexapro] 10 mg Tablet 30 mg PO DAILY pregabalin [Lyrica] 150 mg Capsule 150 mg PO BID amlodipine 5 mg tablet 5 mg PO DAILY potassium chloride 20 mEq tablet,ER particles/crystals 20 meq PO DAILY magnesium oxide 500 mg Tablet 500 mg PO BID Acidophilus Capsule 1 cap PO TID Label Comments: TAKE 1 CAPSULE BY MOUTH THREE TIMES DAILY cholecalciferol (vitamin D3) 25 mcg (1,000 unit) Capsule 25 mcg PO TID fenofibrate nanocrystallized 145 mg tablet 145 mg PO DAILY Label Comments: TAKE 1 TABLET BY MOUTH DAILY Creon 36,000-114,000- 180,000 unit capsule,delayed release(DR/EC) 2 cap PO TIDCM omeprazole 20 mg Capsule,Delayed Release(Dr/Ec) 20 mg PO DAILY Primary Care Provider: Angelica Grady Referrals: Angelica Grady MD [Primary Care Provider] - As soon as possible Activity Restrictions/Additional Instructions: Follow-up in primary care physician. If not improving you may have to be referred to a GI physician. Continue your famotidine and your omeprazole. You may also use Tums. The pain appears to be secondary to inflammation of your stomach called gastritis. Disposition Disposition: Home, Self Care
[2021-11-26] MEDS: 0.9% Normal Saline 1,000 ML 1000 ML IV (19:41)
[2021-11-26] MEDS: Morphine 4 MG/ML Syringe IV ×2 (19:42→21:02)
[2021-11-26] MEDS: Ondansetron 4 MG/2 ML Vial IV (19:44)
[2021-11-26 19:57] LABS: Absolute Lymphocyte Count 1.49 X10^3/uL (0.83-4.51); Absolute Neutrophil Count 3.8 X10^3/uL (2.0-7.7); Basophil# 0.02 X10^3/uL; Basophil% 0.3 % (0-1); Eosinophil# 0.09 X10^3/uL; Eosinophils% 1.5 % (0-5); Hematocrit 46.9 % (40-54); Hemoglobin 15.4 g/dL (13.0-16.5); Lymphocyte # 1.49 X10^3/ul (0.83-4.51); Lymphocyte % 25.1 % (19-41); Mean Corp Hgb Conc 32.8 g/dL (32-36); Mean Corpuscular Hgb 27.9 pg (27.0-32.0); Mean Platelet Vol. 10.3 fl (6.2-12.0); Monocyte# 0.52 X10^3/uL; Monocyte% 8.8 % (0-10); NRBC Flagged by Analyzer 0 % (0-5); Neutrophil # 3.78 X10^3/uL (2.7-7.7); Neutrophil % 63.8 % (47-70); Platelet Count 261 K/mm3 (150-450); RBC Distribution Width CV 12.7 % (11.6-14.6); RBC Distribution Width SD 38.7 fl (35.1-43.9); Red Blood Count 5.52 M/mm3 (4.6-6.2); White Blood Count 5.9 K/mm3 (4.4-11.0)
[2021-11-26 20:00] LABS: Color, Urine Yellow (Yellow); Glucose, Dipstick Normal (Normal); Ketone-Dipstick 5 mg/dl (Negative); Leukocyte Esterase-Dipstick 100 /ul (Negative); Nitrite-Dipstick Negative (Negative); Occult Blood-Urine 10 /ul (Negative); Protein-Dipstick 30 mg/dl (Negative); Specific Gravity, Urine 1.015 (1.002-1.030); Urine Bilirubin Dipstick Negative (Negative); Urine Clarity Clear (Clear); Urine Urobilinogen Normal (Normal); Urine pH 6.5 (5.0 - 8.0)
[2021-11-26 20:17] LABS: Bacteria RARE /hpf (None Seen); Mucous, Urine 1+ /hpf (<or=2+); Red Blood Cells-Urine 0-5 SEEN /hpf (0-5); Squamous Epithelial Cells - UA 0-5 SEEN /hpf (0-5)
[2021-11-26 20:19] LABS: White Blood Cells 5-10 SEEN /hpf (0-5)
[2021-11-26 20:38] LABS: AST(SGOT) 20 U/L (15-37); Alanine Aminotransfer ALT/SGPT 24 U/L (16-61); Albumin, Serum 3.9 g/dL (3.2-5.0); Alkaline Phosphatase 58 U/L (45-117); Anion Gap 8 (5-15); BUN 13 mg/dL (7-18); BUN/Creat Ratio 11.3 RATIO (10-20); Calcium,Total 9.4 mg/dL (8.5-10.1); Chloride 105 mmol/L (98-107); Creatinine, Serum 1.15 mg/dL (0.70-1.30); EST Glomerular Filtration Rate 65 mL/min (>60); Est Glom Filt Rate - Afr Amer 79 mL/min (>60); Estimated Creatinine Clearance 52.04 ml/min; Glucose 116 mg/dL (74-106); Lipase 253 U/L (73-393); Potassium 3.5 mmol/L (3.5-5.1); Protein, Total 7.9 g/dL (6.4-8.2); Sodium Level 142 mmol/L (136-145)
[2021-11-26 21:28] VITALS: BP 130/88; PULSE 62; RESP 16; O2SAT 96
[2021-11-26 22:28] VITALS: BP 133/85; PULSE 68; RESP 15; O2SAT 99
[2021-11-26] MEDS: Mag Hydrox/Al Hydrox/Simeth 30 ML UDC PO (22:36)
[2021-11-26] MEDS: Pantoprazole Sodium 40 MG Tablet PO (22:36)
== END 2021-11-26 22:40 | disposition home or self-care (01) ==
PROVIDERS: Emergency Provider Emergency Medicine; PCP Internal Medicine; Visit Provider Emergency Medicine
DX: K29.70 Gastritis, unspecified, without bleeding (principal); I11.0 Hypertensive heart disease with heart failure; I50.9 Heart failure, unspecified; I48.91 Unspecified atrial fibrillation; G89.29 Other chronic pain; M54.9 Dorsalgia, unspecified; Z87.891 Personal history of nicotine dependence; Z79.01 Long term (current) use of anticoagulants
CPT/HCPCS: 74177; 80053; 81001; 83690; 85025; 96361; 96374; 96375; 96376; 99284; J7030; Q9967; A4216; J2405

== ENCOUNTER 2021-12-01 18:08 | Emergency (ER) | payer MEDICARE, OTHER, SELFPAY ==
[2021-12-01 18:09] VITALS: BP 116/71; PULSE 59; RESP 18; TEMP 35.6; O2SAT 97; BMI 26.3
--- NOTE | 2021-12-01 19:30 | CT_ITS ---
STUDY: CT ABDOMEN AND PELVIS WITH CONTRAST REASON FOR EXAM: Male, 75 years old. Abdominal pain. RADIATION DOSAGE (If Supplied By Facility): CTDIvol = ( 18.72 ) mGy, DLP = ( 918.37 ) mGycm TECHNIQUE: Transaxial images were obtained from the dome of the diaphragm to the symphysis pubis without oral contrast. IV 100mL Isovue-300 was administered. Sagittal and coronal images were reconstructed. Individualized dose optimization techniques were used for this CT. COMPARISON: 11/26/2021. FINDINGS: The visualized lung bases are unremarkable. The heart is normal in size. Pacer leads are again seen in the right heart. There is evidence of prior median sternotomy suggesting CABG procedure. Liver is small in size. There are small cystic changes in the right lobe. There is no enhancing mass. Minimal air is seen within the central intrahepatic ducts. There are surgical clips in the gallbladder fossa consistent with a prior cholecystectomy. Normal spleen. Normal pancreas. Normal bilateral adrenal glands. Stable cortical scarring of the upper pole. Otherwise normal right kidney. Normal right ureter. Stable left renal cyst. No renal calculi or hydronephrosis. Normal left ureter. The stomach is mildly distended with gas. Normal small bowel. Sigmoid diverticulosis without acute inflammatory change. The proximal colon appears normal. There is non-visualization of the appendix. There is diffuse atherosclerotic calcification of the abdominal aorta,. There is mild fusiform dilatation of the distal infrarenal aorta with a maximum diameter of 3.1 x 2.6 cm. Normal inferior vena cava. Normal retroperitoneum. Trabeculated urinary bladder with multiple small diverticuli. There is no visualized filling defect. The prostate is enlarged and invaginates into the bladder floor. No pelvic lymphadenopathy. No free air or free fluid is seen within the peritoneal cavity. Small bilateral inguinal hernias with omental fat. The abdominal wall is otherwise unremarkable diffuse degenerative changes of the lumbar spine and hips. There is stable irregularity of the left iliac crest suggesting remote fracture. There are no major osseous changes. CT/Abdomen/Pelvis W IV Cont ONLY IMPRESSION: 1. Interval cholecystectomy. Minimal air is seen within the intrahepatic ducts likely postsurgical. 2. No evidence of acute intra-abdominal process or other major interval change Electronically Signed: Maverick Mehta DO at 20:55 EDT Reading Location ID and State: [address] [place] [address] Tel [phone], Service support ,
--- NOTE | 2021-12-01 19:32 | EDS_ITS ---
HPI HPI - GI History of Present Illness Chief Complaint: Abd Pain Narrative Narrative: 75-year-old male presenting with right upper quadrant pain. He states this is a chronic issue. He is treated with 2 mg of Dilaudid twice daily for this. He has a GI doctor at [facility]. He states he has been here 5 times this month at the hospital and has not made any follow-up appointments with his GI doctor. He denies diarrhea or constipation. He had a couple of symptoms of vomiting but he is able to hold some food and fluids down. No fever or chills. No urinary complaints. Patient does state he has a history of pancreatitis in the past. He has had a appendectomy and a cholecystectomy. [facility] Medical History Anxiety and depression Atrial fibrillation Chronic back pain Congestive heart failure GERD (gastroesophageal reflux disease) Heart disease Hemorrhoid HTN (hypertension) Osteoarthritis Pancreatitis Sleep apnea Venous (peripheral) insufficiency Home Medications apixaban 5 mg tablet (Eliquis) 5 mg PO BID 11/29/17 [History Last Taken 11/01/21] aspirin 81 mg tablet,delayed release (Adult Aspirin Regimen) 81 mg PO DAILY 11/29/17 [History Last Taken 11/01/21] colesevelam 625 mg tablet (WelChol) 1,875 mg PO BID 11/29/17 [History Last Taken 11/01/21] furosemide 40 mg tablet 60 mg PO BID 11/29/17 [History Last Taken 11/01/21] metoprolol succinate 25 mg tablet,extended release 24 hr 37.5 mg PO DAILY 11/29/17 [History Last Taken 11/01/21] nitroglycerin 0.4 mg sublingual tablet (Nitrostat) 0.4 mg sublingual Q5-15M PRN Chest Pain 11/29/17 [History Last Taken Unknown] donepezil 10 mg tablet 10 mg PO DAILY 10/25/21 [History Last Taken 11/01/21] famotidine 20 mg tablet 20 mg PO BID 10/25/21 [History Last Taken 11/01/21] hydromorphone 2 mg tablet 2 mg PO BID PRN Breakthrough Pain 10/25/21 [History Last Taken 11/01/21] promethazine 25 mg tablet 25 mg PO TID PRN nausea and vomiting #14 tabs 10/25/21 [Rx Last Taken Unknown] Lactobacillus acidophilus (Acidophilus capsule) 1 cap PO TID immune health 11/02/21 [History Last Taken 11/01/21] amlodipine 5 mg tablet 5 mg PO DAILY bp 11/02/21 [History Last Taken 11/01/21] cholecalciferol (vitamin D3) 25 mcg (1,000 unit) capsule 25 mcg PO TID supplement 11/02/21 [History Last Taken 11/01/21] escitalopram oxalate 10 mg tablet (Lexapro) 30 mg PO DAILY 11/02/21 [History Last Taken 11/01/21] fenofibrate nanocrystallized 145 mg tablet 145 mg PO DAILY cholesterol 11/02/21 [History Last Taken 11/01/21] levothyroxine 88 mcg tablet 88 mcg PO DAILY thyroid 11/02/21 [History Last Taken 11/01/21] [id number] 36,000-114,000-180,000 unit capsule,delay rel (Creon) 2 cap PO TIDCM 11/02/21 [History Last Taken 11/01/21] losartan 100 mg tablet 100 mg PO DAILY bp 11/02/21 [History Last Taken 11/01/21] magnesium oxide 500 mg tablet 500 mg PO BID supplement 11/02/21 [History Last Taken 11/01/21] potassium chloride 20 mEq tablet,extended release(part/cryst) 20 meq PO DAILY supplement 11/02/21 [History Last Taken 11/01/21] pregabalin 150 mg capsule (Lyrica) 150 mg PO BID pain 11/02/21 [History Last Taken 11/01/21] omeprazole 20 mg capsule,delayed release 20 mg PO DAILY 11/26/21 [History Last Taken Unknown] Allergy/AdvReac Type Severity Reaction Status Date / Time gabapentin Allergy Unknown Unknown Verified 12/01/21 20:43 meperidine [From Demerol] AdvReac Intermediate mental Verified 12/01/21 20:43 status change Grmsncu-HCA-UnS Reductase AdvReac Intermediate Unknown Verified 12/01/21 20:43 Inhibitor [Wptmnhj-Lap-Maj Reductase Inhibitor] Penicillins AdvReac Mild passed out Verified 12/01/21 20:43 zolpidem [From Ambien] AdvReac Mild mental Verified 12/01/21 20:43 status change topiramate AdvReac Other Verified 12/01/21 20:43 Family History Sister Diabetes Asthma Thyroid disorder Mother CVA (cerebral vascular accident) Brother CVA (cerebral vascular accident) Hypertension Heart disease Surgical History History of appendectomy History of back surgery History of cataract surgery History of cholecystectomy History of elbow surgery History of ERCP History of heart bypass surgery History of hernia repair History of hip replacement, total History of prostatectomy History of right below knee amputation Social History Smoking Status: Former smoker ROS ROS ED Constitutional Constitutional ED: Denies chills or fever(s) ENT ENT ED: Denies rhinorrhea or sore throat Cardiovascular Cardiovascular: Denies chest pain or palpitations Respiratory/Chest Respiratory/Chest: Denies cough or dyspnea Gastrointestinal Gastrointestinal: Reports abdominal pain, nausea and vomiting; Denies constipation or diarrhea Genitourinary Genitourinary ED: Denies dysuria or hematuria Musculoskeletal Musculoskeletal: Denies arthralgias or back pain Integumentary Denies abscess or Abrasions Neurologic Neurologic: Denies headache(s) or paresthesias Psychiatric Psychiatric: Denies anxiety or depression Endocrine Endocrinology: Denies polydipsia or polyphagia EXAM Physical Exam Const Vital Signs: 12/01/21 18:09 12/01/21 21:23 Temperature 96.1 F L 97.9 F Temperature Source Temporal Oral Pulse Rate 59 L 60 Respiratory Rate 18 18 Blood Pressure 116/71 115/76 Blood Pressure Mean 86 89 Pulse Ox 97 97 Oxygen Delivery Method Room Air Room Air Positive well nourished General Appearance ED: NAD; Negative for pallor HEENT Reports moist mucous membranes normocephalic Eyes PERRL and EOMs intact bilaterally General Eye ED: Negative for pale conjunctiva or scleral icterus Resp normal respiratory effort and clear to auscultation bilaterally Cardio Negative for regular rate or regular rhythm GI Palpation: tender RUQ Neuro CN's II-XII intact bilaterally and moves all extremities Sensorium / Orientation: alert Psych mental status grossly normal Skin no wounds General Skin Exam: Negative for jaundice or pallor MDM MDM MDM Narrative Medical decision making narrative: 75-year-old male presenting with right upper quadrant pain. He does not have a gallbladder. He has had an appendectomy. Previously had ERCP. His exam is positive for mild tenderness in the right upper quadrant. He is laughing and joking while I examine him. He already takes Dilaudid at home. His vital signs are normal. I will treat him with Dilaudid IV as well as Zofran. I will obtain blood work and imaging. CBC and CMP are unremarkable. Lipase minimally elevated at 403. CT of the abdomen pelvis shows no acute process. Patient reevaluated and feeling well. I counseled him need to follow-up with his GI doctor. He is stable for discharge at this time. Impression: 1. Acute exacerbation of chronic abdominal Lab Data Attestation: I reviewed the patient's lab results. Labs: Laboratory Results - last 24 hr 12/01/21 12/01/21 19:25 19:25 WBC 5.1 RBC 4.99 Hgb 13.8 Hct 42.7 MCV 85.6 MCH 27.7 MCHC 32.3 RDW Std Deviation 40.2 RDW Coeff of Esthela 13.1 Plt Count 274 MPV 10.5 Immature Gran % (Auto) 1.200 H Neut % (Auto) 55.3 Lymph % (Auto) 27.6 [place] % (Auto) 10.8 H Eos % (Auto) 4.3 Baso % (Auto) 0.8 Absolute Neuts (auto) 2.8 Absolute Lymphs (auto) 1.40 Nucleated RBC % 0 Sodium 142 Potassium 3.7 Chloride 108 H Carbon Dioxide 29.0 Anion Gap 5 BUN 21 H Creatinine 1.19 Estim Creat Clear Calc 50.29 Est GFR (MDRD) Af Amer 76 Est GFR (MDRD) Non-Af 63 BUN/Creatinine Ratio 17.6 Glucose 104 Calcium 9.0 Total Bilirubin 0.30 AST 19 ALT 26 Alkaline Phosphatase 50 Total Protein 6.5 Albumin 3.4 Globulin 3.1 Albumin/Globulin Ratio 1.1 Lipase 403 H Radiography Diagnostic Testing: Clinical Impression(s) from Imaging Studies Abdomen/Pelvis CT 12/01/21 19:30 IMPRESSION: 1. Interval cholecystectomy. Minimal air is seen within the intrahepatic ducts likely postsurgical. 2. No evidence of acute intra-abdominal process or other major interval change Electronically Signed: Maverick eMhta DO at 20:55 EDT , Discharge Plan Triage Chief Complaint: Abd Pain ED Provider: Serafin Lara Dx/Rx/DC Orders Instructions: ED Abdominal Pain Unkn Cause Male... Prescriptions: No Action aspirin [Adult Aspirin Regimen] 81 mg tablet,delayed release (DR/EC) 81 mg PO DAILY Eliquis 5 mg tablet 5 mg PO BID nitroglycerin [Nitrostat] 0.4 mg tablet, sublingual 0.4 mg SUBLINGUAL Q5-15M PRN (Reason: Chest Pain) colesevelam [WelChol] 625 mg tablet 1,875 mg PO BID metoprolol succinate 25 mg tablet extended release 24 hr 37.5 mg PO DAILY furosemide 40 mg tablet 60 mg PO BID hydromorphone 2 mg tablet 2 mg PO BID PRN (Reason: Breakthrough Pain) Label Comments: TAKE 1 TABLET BY MOUTH TWICE DAILY NEEDED BREAKTHROUGH PAIN donepezil 10 mg tablet 10 mg PO DAILY famotidine 20 mg Tablet 20 mg PO BID promethazine 25 mg tablet 25 mg PO TID PRN (Reason: nausea and vomiting) Qty: 14 0RF levothyroxine 88 mcg Tablet 88 mcg PO DAILY losartan 100 mg Tablet 100 mg PO DAILY escitalopram oxalate [Lexapro] 10 mg Tablet 30 mg PO DAILY pregabalin [Lyrica] 150 mg Capsule 150 mg PO BID amlodipine 5 mg tablet 5 mg PO DAILY potassium chloride 20 mEq tablet,ER particles/crystals 20 meq PO DAILY magnesium oxide 500 mg Tablet 500 mg PO BID Acidophilus Capsule 1 cap PO TID Label Comments: TAKE 1 CAPSULE BY MOUTH THREE TIMES DAILY cholecalciferol (vitamin D3) 25 mcg (1,000 unit) Capsule 25 mcg PO TID fenofibrate nanocrystallized 145 mg tablet 145 mg PO DAILY Label Comments: TAKE 1 TABLET BY MOUTH DAILY Creon 36,000-114,000- 180,000 unit capsule,delayed release(DR/EC) 2 cap PO TIDCM omeprazole 20 mg Capsule,Delayed Release(Dr/Ec) 20 mg PO DAILY Primary Care Provider: Angelica Grady Referrals: Angelica Grady MD [Primary Care Provider] - Disposition Disposition: Home, Self Care
[2021-12-01 19:53] LABS: Absolute Neutrophil Count 2.8 X10^3/uL (2.0-7.7); Basophil# 0.04 X10^3/uL; Basophil% 0.8 % (0-1); Eosinophil# 0.22 X10^3/uL; Eosinophils% 4.3 % (0-5); Hematocrit 42.7 % (40-54); Hemoglobin 13.8 g/dL (13.0-16.5); Lymphocyte % 27.6 % (19-41); Mean Corp Hgb Conc 32.3 g/dL (32-36); Mean Corpuscular Hgb 27.7 pg (27.0-32.0); Mean Corpuscular Volume 85.6 fL (80-94); Mean Platelet Vol. 10.5 fl (6.2-12.0); Monocyte# 0.55 X10^3/uL; Monocyte% 10.8 % (0-10); NRBC Flagged by Analyzer 0 % (0-5); Neutrophil % 55.3 % (47-70); Platelet Count 274 K/mm3 (150-450); RBC Distribution Width CV 13.1 % (11.6-14.6); RBC Distribution Width SD 40.2 fl (35.1-43.9); Red Blood Count 4.99 M/mm3 (4.6-6.2); White Blood Count 5.1 K/mm3 (4.4-11.0)
[2021-12-01] MEDS: Ondansetron 4 MG/2 ML Vial IV (20:08)
[2021-12-01] MEDS: 0.9% Normal Saline 1,000 ML 1000 ML IV (20:08)
[2021-12-01] MEDS: HYDROmorphone 1 MG/ML Syringe IV (20:09)
[2021-12-01 20:10] LABS: ALB/GLOB Ratio 1.1 RATIO (0.9-2.4); AST(SGOT) 19 U/L (15-37); Alanine Aminotransfer ALT/SGPT 26 U/L (16-61); Albumin, Serum 3.4 g/dL (3.2-5.0); Alkaline Phosphatase 50 U/L (45-117); Anion Gap 5 (5-15); BUN 21 mg/dL (7-18); BUN/Creat Ratio 17.6 RATIO (10-20); Chloride 108 mmol/L (98-107); Creatinine, Serum 1.19 mg/dL (0.70-1.30); EST Glomerular Filtration Rate 63 mL/min (>60); Est Glom Filt Rate - Afr Amer 76 mL/min (>60); Estimated Creatinine Clearance 50.29 ml/min; Globulin 3.1 g/dL (2.2-4.2); Glucose 104 mg/dL (74-106); Lipase 403 U/L (73-393); Potassium 3.7 mmol/L (3.5-5.1); Protein, Total 6.5 g/dL (6.4-8.2); Sodium Level 142 mmol/L (136-145)
[2021-12-01 21:23] VITALS: BP 115/76; PULSE 60; RESP 18; TEMP 36.6; O2SAT 97
[2021-12-01 21:29] LABS: Red Blood Cells-Urine 0 SEEN /hpf (0-5); White Blood Cells 0 SEEN /hpf (0-5)
[2021-12-01 21:40] LABS: Color, Urine Yellow (Yellow); Glucose, Dipstick Normal (Normal); Ketone-Dipstick Negative (Negative); Leukocyte Esterase-Dipstick 25 /ul (Negative); Nitrite-Dipstick Negative (Negative); Occult Blood-Urine Negative /ul (Negative); Protein-Dipstick 15 mg/dl (Negative); Specific Gravity, Urine 1.015 (1.002-1.030); Urine Bilirubin Dipstick Negative (Negative); Urine Clarity Clear (Clear); Urine Urobilinogen Normal (Normal)
[2021-12-01 21:44] VITALS: O2SAT 94
[2021-12-01 21:48] LABS: Squamous Epithelial Cells - UA 0-5 SEEN /hpf (0-5)
[2021-12-01 21:49] LABS: Bacteria 1+ /hpf (None Seen); Mucous, Urine 1+ /hpf (<or=2+)
== END 2021-12-01 21:45 | disposition home or self-care (01) ==
PROVIDERS: Emergency Provider Student in an Organized Health Care Education/Training Program; PCP Internal Medicine; Visit Provider Student in an Organized Health Care Education/Training Program
DX: R10.11 Right upper quadrant pain (principal); I11.0 Hypertensive heart disease with heart failure; I50.9 Heart failure, unspecified; M54.9 Dorsalgia, unspecified; Z87.891 Personal history of nicotine dependence; R10.811 Right upper quadrant abdominal tenderness; R11.10 Vomiting, unspecified
CPT/HCPCS: 74177; 80053; 81001; 83690; 85025; 99283; J7030; Q9967; A4216; J2405